=== PATIENT | male | born 1950 | race Caucasian/White ===

== ENCOUNTER 2022-07-16 09:18 | Inpatient (IN) | payer MEDICARE, MEDICAID, SELFPAY ==
[2022-07-16] VITALS (11 sets, daily range): BP systolic 132–149; BP diastolic 67–90; PULSE 98–114; RESP 17–18; TEMP 36.2–36.6; O2SAT 97–99; BMI 24.9; BMI 23.6
--- NOTE | 2022-07-16 09:33 | EKG12_ITS ---
Test Reason : ABNORMAL LABS Blood Pressure : / mmHG Vent. Rate : 113 BPM Atrial Rate : 113 BPM P-R Int : 162 ms QRS Dur : 090 ms QT Int : 334 ms P-R-T Axes : 049 -01 066 degrees QTc Int : 458 ms Sinus tachycardia with Premature atrial complexes Septal infarct , age undetermined Abnormal ECG Confirmed by NATY GUTIERREZ, VIDA ([id number]), television news video editor MILTON DE LA CRUZ ([id number]) on 07/19/2022 9:34:52 AM Referred By: Confirmed By:VIDA ALFONSO MD
--- NOTE | 2022-07-16 09:42 | EDS_ITS ---
HPI History of Present Illness Chief Complaint: Abn Labs Detail of Chief Complaint: Patient arrived by ambulance because of abnormal labs. Informant: patient and EMS Onset/Context/Timing Onset: - (Unknown) Context: - (Presumed acute) Timing: Continuous Quality: Significant rise in BUN and creatinine Location: Renal Current Severity: Severe Maximum Severity: Severe Worsened by: Lack of p.o. intake Associated Symptoms Associated Symptoms: Generalized weakness, weight loss Narrative Narrative: Patient is an elderly male. He is not a good informant. He believes it is Fe joe. When asked the day of month he was uncertain and respond to 22. He does not know the year. He does know he is at [facility]. He states he had recent surgery for torn muscle. This was performed at outside facility. Patient states his relative checked on him this morning and called the squad. Patient denies headache. Patient denies change in vision. Patient denies pr oblems with speech or swallowing. He states his mouth is dry. He denies chest pain or shortness of breath. He denies abdominal pain. He states he has back pain because he was dropped by president [employer] at outside facility. Patient is uncertain of the medications he is on. He is uncertain if he has taken them. Prior similar symptoms: No Recent Illness/Hospitalization: Yes [facility] Medical History unable to obtain unable to obtain Home Medications No Known/Unobtainable [Unobtainable] 12/28/13 [History Last Taken Unknown] Allergy/AdvReac Type Severity Reaction Status Date / Time No Known Allergies Allergy Verified 07/16/22 09:23 Surgical History unable to obtain unable to obtain Social History (Updated 07/16/22 @ 09:[address] Alexander Alvarez MD) household members: none Smoking Status: Former smoker substance use type: does not use ROS ROS ED Review of Systems ROS Unobtainable: due to mental status Constitutional Constitutional ED: Denies chills or fever(s) Eyes Eyes: Denies blurry vision, change in vision or diplopia Cardiovascular Cardiovascular: Denies chest pain or palpitations Respiratory/Chest Respiratory/Chest: Denies cough Gastrointestinal Gastrointestinal: Denies abdominal pain, nausea or vomiting Musculoskeletal Musculoskeletal: Reports back pain; Denies myalgias or neck pain Integumentary Denies abscess, Abrasions or rash Neurologic Neurologic: Reports weakness; Denies headache(s) or paresthesias EXAM Physical Exam Const Vital Signs: 07/16/22 09:19 07/16/22 09:59 Temperature 97.1 F L Temperature Source Temporal Pulse Rate 114 H Respiratory Rate 18 Respiratory Effort Normal Non-Labored Respiratory Pattern Normal Blood Pressure 142/90 H Blood Pressure Mean 107 Pulse Ox 98 Oxygen Delivery Method Room Air Positive well developed, cachectic and unkempt Constitutional Narrative: Patient has temporal wasting. He requires repeated stimulation to open his eyes. General Appearance ED: unkempt, well developed, cachectic and pallor; Negative for cyanotic or diaphoretic Nutritional Appearance: cachectic HEENT Reports dry mucous membranes HEENT Narrative: Patient has abrasions to his head versus fruit or nut picker syndrome. There is no clinical finding of basilar skull fracture. Uvula is midline. There is no deviation tongue with protrusion. Mouth ED: Yes dry mucous membranes Mouth: dry mucous membranes Eyes PERRL and EOMs intact bilaterally General Eye ED: Negative for scleral icterus Neck no lymphadenopathy, supple and no JVD Chest Wall inspection of chest normal and palpation of chest normal Resp normal respiratory effort and clear to auscultation bilaterally Cardio regular rhythm, S1 normal heart sound, S2 normal heart sound and no murmurs Rate: tachycardic GI normal to inspection, nondistended, normoactive bowel sounds, non-tender, non- distended and no masses; Negative for hepatosplenomegaly Palpation: soft Back/Spine no CVA tenderness Cervical Spine: Negative for cervical spine tenderness Thoracic Spine / Upper Back: Negative for thoracic spinal tenderness or paraspinal muscle tenderness Lumbar Spine / Lower Back: Negative for lumbar spinal tenderness Extremity normal to inspection Extremity Narrative: There are 2 small incisions noted lateral superior to right knee joint. There is no evidence infection. Patient does have stigmata of peripheral arterial disease of his lower extremities. There is no hair on his toes. Difficulty appreciating pulses. Neuro No oriented x3, CN's II-XII intact bilaterally and no sensory deficits noted Sensorium / Orientation: orientation impaired; Negative for alert Psych Psych Narrative: Difficult to determine since patient requires repeated verbal stimuli to keep his eyes open. His answers are not always relevant to the questions asked. Appearance: unkempt Skin No skin turgor normal General Skin Exam: pallor; Negative for jaundice Trauma: abrasion MDM MDM MDM Narrative Medical decision making narrative: Patient had blood work on the . His BUN and creatinine were elevated at that time. BUN and creatinine are 49 and 2.44 respectively. Blood work was obtained today and BUN/creatinine are 113 and 3.58. GFR is 18. Glucose slight elevated 124. Patient has microcytic anemia which is unchanged since the . Prior blood work was 2012. Patient has encephalopathy. There appears to be trauma to his head. Will obtain CT of the head to rule out intracranial process. Since blood work was performed at [facility] earlier today these were not repeated. He will receive a fluid bolus and IV fluids. Will obtain urine to assess for casts and rule out urinary tract infection. Patient will require admission. Lab Data Attestation: I reviewed the patient's lab results. Lab results narrative: Patient's urine reveals bacteria. There is no leukoesterase or nitrites. Urine culture was sent. 1 dose of Rocephin was given. If he requires additional dose of Rocephin dose will need to be adjusted for renal impairment. Labs: Laboratory Results - last 24 hr 07/16/22 09:26 Urine Color Yellow Urine Clarity Sl. Cloudy Urine pH 6.0 Ur Specific [place] 1.015 Urine Protein 30 H Urine Glucose (UA) 50 H Urine Ketones Negative Urine Occult Blood 250 H Urine Nitrite Negative Urine Bilirubin Negative Urine Urobilinogen Normal Ur Leukocyte Esterase Negative Urine RBC 0-5 SEEN Urine WBC 0 SEEN Ur Squamous Epith Cells 0-5 SEEN Urine Bacteria 2+ Urine Mucus 0 SEEN Discharge Plan Triage Chief Complaint: Abn Labs ED Provider: Alexander Alvarez Dx/Rx/DC Orders Clinical Impression: Acute kidney injury, Acute uremia, Encephalopathy acute, Bacteria in urine, Sinus tachycardia, Hypertension Prescriptions: No Action Unobtainable Primary Care Provider: Tan Mercado Referrals: Tan Mercado MD [Primary Care Provider] - Disposition Disposition: Acute Care Hospital [facility]
--- NOTE | 2022-07-16 09:46 | CT_ITS ---
STUDY: CT BRAIN WITHOUT CONTRAST REASON FOR EXAM: Male, 72 years old. Acute mental status change RADIATION DOSAGE (If Supplied By Facility): CTDIvol = ( 44.99 ) mGy, DLP = ( 779.24 ) mGycm TECHNIQUE: Transaxial CT imaging of the brain was performed without administration of intravenous contrast material. Individualized dose optimization techniques were used for this CT. COMPARISON: 2013 FINDINGS: Normal soft tissue structures. Normal calvarium. When compared to the previous study, there is hyperdense lesion along the posterior left falx best seen on coronal recon image 70 and axial image 18. There is no associated edema. This could represent a meningioma, further evaluation with contrasted CT or MRI recommended. There is mild cerebral atrophy with widening of the extra-axial spaces and ventricular dilatation. There are areas of decreased attenuation within the white matter tracts of the supratentorial brain, consistent with microvascular disease changes. Normal basal ganglia and thalami. Normal brainstem. Normal cerebellum. There is no intracranial hemorrhage. There are no findings of an acute ischemic infarction. Normal visualized paranasal sinuses. CT/Brain/Head without Contrast IMPRESSION: 1.59 x 1.05 x 1.43 cm hyperdense lesion in the posterior left occipital region along the falx. This may represent a meningioma. There is no associated edema mass effect or midline shift. This was not seen on the previous study of 2013. Recommend further evaluation with contrasted CT or MRI. Age consistent atrophic periventricular and deep white matter changes, no acute hemorrhage Electronically Signed: Barak Scott MD at 10:53 EDT ,
[2022-07-16 10:03] LABS: Mucous, Urine 0 SEEN /hpf (<or=2+); White Blood Cells 0 SEEN /hpf (0-5)
[2022-07-16 10:06] LABS: Color, Urine Yellow (Yellow); Glucose, Dipstick 50 mg/dl (Normal); Ketone-Dipstick Negative (Negative); Leukocyte Esterase-Dipstick Negative /ul (Negative); Nitrite-Dipstick Negative (Negative); Occult Blood-Urine 250 /ul (Negative); Protein-Dipstick 30 mg/dl (Negative); Specific Gravity, Urine 1.015 (1.002-1.030); Urine Bilirubin Dipstick Negative (Negative); Urine Clarity Sl. Cloudy (Clear); Urine Urobilinogen Normal (Normal)
[2022-07-16 10:18] LABS: Red Blood Cells-Urine 0-5 SEEN /hpf (0-5); Squamous Epithelial Cells - UA 0-5 SEEN /hpf (0-5)
[2022-07-16 10:21] LABS: Bacteria 2+ /hpf (None Seen)
[2022-07-16] MEDS: 0.9% Normal Saline 1,000 ML 150 ML IV (10:23)
[2022-07-16 10:49] LABS: AST(SGOT) 58 U/L (15-37); Alanine Aminotransfer ALT/SGPT 19 U/L (16-61); Albumin, Serum 1.8 g/dL (3.2-5.0); Alkaline Phosphatase 189 U/L (45-117); Bilirubin, Direct 0.41 mg/dL (0.00-0.30); Globulin 5.2 g/dL (2.2-4.2)
--- NOTE | 2022-07-16 11:02 | NURSING ---
DR JASPREET LOPEZ
--- NOTE | 2022-07-16 11:08 | US_ITS ---
STUDY: ABDOMINAL ULTRASOUND - RIGHT UPPER QUADRANT REASON FOR VISIT: Male, 72 years old cirrhosis. Pancytopenia. Low albumin. Acute kidney injury. TECHNIQUE: Ultrasound evaluation of the right upper quadrant was performed with real-time and static doyle-scale imaging. TECHNICAL QUALITY: Examination limited due to a combination of factors including patient condition and bowel gas. COMPARISON: None. FINDINGS: Liver: The liver measures 15.7 cm. There is a heterogeneous echogenicity of the liver. The bile ducts are within normal limits. There is hepatic color flow. The direction of portal flow is hepatopetal. There is no demonstrated mass lesion. Gallbladder: Distended gallbladder. The gallbladder wall measures 2 mm. There is a negative sonographic Chacon''s sign. There is no pericholecystic fluid. There are no gallstones. Common Bile Duct (C.B.D.): The common bile duct measures 7 mm. Pancreas: Limited visualization of pancreas. The body and tail are poorly visualized. There is normal echogenicity of the visualized pancreas. There is no demonstrated pancreatic mass or cyst. Right Kidney: Normal size of the right kidney. The right kidney measures 11.8 cm. Normal renal cortex. The right cortex measures 1.8 cm. There is no demonstrated renal mass or cyst. There is no right hydronephrosis. US/Abdomen Limited IMPRESSION: 1. Limited study due to bowel gas patient condition. The pancreas is incompletely visualized. 2. Distended gallbladder without wall thickening or filling defect.. 3. Heterogenous liver without focal mass. 4. Otherwise normal right upper quadrant abdominal ultrasound. Electronically Signed: Kale Rivera DO at 18:02 EDT ,
--- NOTE | 2022-07-16 11:08 | US_ITS ---
STUDY: RENAL ULTRASOUND - COMPLETE REASON FOR EXAM: Male, 72 years old. Acute kidney injury. Hydronephrosis. Bladder pathology. History of prostate cancer. TECHNIQUE: Ultrasound evaluation of the kidneys was performed with real-time and static machuca-scale imaging. COMPARISON: None. FINDINGS: Study is limited due to bowel gas and patient condition. The patient was unable to lie in the decubitus position for improved visualization kidneys. RIGHT KIDNEY: There is mild enlargement although the right kidney. The right kidney measures 12.9 cm. Is increased renal cortical echogenicity when compared to the adjacent liver. The renal cortex measures 2.1 cm. There is no right renal mass or cyst. There are no right renal calculi. There is no right hydronephrosis. DISTAL RIGHT URETER: There is non-visualization of the distal right ureter. There is no demonstrated right ureterovesical junction calculus. There is no demonstrated right ureteral jet. LEFT KIDNEY: Mild enlargement of the left kidney. The left kidney measures 12.9 cm. There is a normal cortex of the left kidney. The renal cortex measures 2.2 cm. There is an exophytic 1.8 x 1.9 x 1.8 cm cyst off the lower pole. There are no left renal calculi. There is no left hydronephrosis. DISTAL LEFT URETER: There is non-visualization of the distal left ureter. There is no demonstrated left ureterovesical junction calculus. There is no demonstrated left ureteral jet. BLADDER: The distended urinary bladder has a volume of 75 ml. There is a normal wall thickness of the distended urinary bladder. There is no demonstrated mass within the urinary bladder. There are no demonstrated bladder calculi. The prostate is enlarged with a volume of 45.7 mL. US/Kidney and Bladder IMPRESSION: 1. Increased renal cortical echogenicity of the right kidney consistent with medical renal disease. 2. Small left renal cyst. 3. Enlarged prostate. Electronically Signed: Kale Rivera DO at 18:08 EDT Reading Location ID and State: [facility] / [place] Tel [phone], Service support ,
--- NOTE | 2022-07-16 11:13 | EX.ED.DYSGE1 ---
HPI History of Present Illness Chief Complaint: Abn Labs [facility] Medical History unable to obtain Home Medications No Known/Unobtainable [Unobtainable] 12/28/13 [History Last Taken Unknown] Allergy/AdvReac Type Severity Reaction Status Date / Time No Known Allergies Allergy Verified 07/16/22 09:23 Surgical History unable to obtain Social History (Updated 07/16/22 @ 09:[address] Alexander Alvarez MD) household members: none Smoking Status: Former smoker substance use type: does not use EXAM Physical Exam Const Vital Signs: 07/16/22 09:19 07/16/22 09:59 Temperature 97.1 F L Temperature Source Temporal Pulse Rate 114 H Respiratory Rate 18 Respiratory Effort Normal Non-Labored Respiratory Pattern Normal Blood Pressure 142/90 H Blood Pressure Mean 107 Pulse Ox 98 Oxygen Delivery Method Room Air [facility] Lab Data Labs: Laboratory Results - last 24 hr 07/16/22 07/16/22 09:26 10:20 Total Bilirubin 0.70 Direct Bilirubin 0.41 H AST 58 H ALT 19 Alkaline Phosphatase 189 H Total Protein 7.0 Albumin 1.8 L Globulin 5.2 H Urine Color Yellow Urine Clarity Sl. Cloudy Urine pH 6.[address] 1[address]015 Urine Protein 30 H Urine Glucose (UA) 50 H Urine Ketones Negative Urine Occult Blood 250 H Urine Nitrite Negative Urine Bilirubin Negative Urine Urobilinogen Normal Ur Leukocyte Esterase Negative Urine RBC 0-5 SEEN Urine WBC 0 SEEN Ur Squamous Epith Cells 0-5 SEEN Urine Bacteria 2+ Urine Mucus 0 SEEN Radiography Diagnostic Testing: Clinical Impression(s) from Imaging Studies Brain CT 07/16/22 09:46 IMPRESSION: 1.59 x 1.05 x 1.43 cm hyperdense lesion in the posterior left occipital region along the falx. This may represent a meningioma. There is no associated edema mass effect or midline shift. This was not seen on the previous study of 2013. Recommend further evaluation with contrasted CT or MRI. Age consistent atrophic periventricular and deep white matter changes, no acute hemorrhage Electronically Signed: Barak Scott MD at 10:53 EDT , Discharge Plan Dx/Rx/DC Orders Clinical Impression: Acute kidney injury, Acute uremia, Encephalopathy acute, Bacteria in urine, Sinus tachycardia, Hypertension, Caloric malnutrition, Hypoalbuminemia Disposition Disposition: Acute Care Hospital [facility]
--- NOTE | 2022-07-16 11:15 | NURSING ---
MED SURG JASPREET UREMIA, ACUTE KIDNEY INJURY, ENCEPHALOPATHY, BACTERIURIA
[2022-07-16] MEDS: Ceftriaxone 1 GM/50 ML BAG IV (11:26)
[2022-07-16 11:45] LABS: Osmolality, Urine 397 mOsm/KG
[2022-07-16 11:46] LABS: CPK Total, Creatine Kinase 417 U/L (39-308); Magnesium 2.5 mg/dL (1.6-2.6)
[2022-07-16 11:51] LABS: Protein, Urine (Random) 87.2 mg/dL (<11.9); Protein:Creat Ratio 2185 mg/g CRE (0-200); Urine Chloride 32 mmol/L (Not Establ.); Urine Sodium 28 mmol/L (Not Establ.)
[2022-07-16 11:52] LABS: Phosphorus 3.8 mg/dL (2.5-4.9)
--- NOTE | 2022-07-16 12:07 | HP.PCM.HOS_ITS ---
[facility] - General General Date of Admission: 07/16/22 Date of Service: 07/16/22 Chief Complaint: Abnormal critical values of BUN and creatinine, sent from [facility] HPI Narrative ANGELES PHELPS, is a 72 M with much of the medical care. Outside hospital was sent from [facility] for abnormal critical labs. Patient BUN found to be 113, creatinine 3.58. Patient has chronic kidney disease with last BUN/creatinine 49/2.44 on 07/09/2022 and last creatinine 1.5 in November 2012 in our system. Potassium is normal 4.1, sodium 137, chloride 108, bicarb 16, anion gap 13. Patient history is very patchy and incomplete as does not give history in chronological order and switches from one topic to another, unclear of any chronic mental health disorder/psychiatric diagnosis. Overall it seems that patient has broken right hip, displaced fracture of lesser trochanter of right femur for which she had procedure done in outside hospital probably in [facility]. 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 All the details of the cancer history is unknown. Patient most of the care is outside of [facility]. After that, patient went to custodial and then preoperative to [facility]. There he said he was picked up and dropped in [facility] that broke his back, lumbar spine. Patient does not let me examine his back, cannot turn sideways because of pain. All the time he says it knocked me down as of severe back pain. Denies any fever. No burning micturition or new urinary symptoms. He has pain over right hip region and thigh. There are surgical lázaro over right hip lateral, middle and distal thigh suggestive of some sort of hip fracture procedure. He said he had procedure done on the left hip but I do not see any surgical scar. In ED, patient had twelve-lead EKG shows sinus tachycardia at 113 bpm with PAC, [place] 162 ms, QRS 90 ms. QTc [address]-T changes. Patient did not have chest pain or shortness of breath. States he had coronary artery disease status post CABG and 4 stents. CABG was done about 2 to 3 years ago but not mentioning past medical history. Patient denies COPD but he was a former/ex-smoker [facility] Medical History Anemia, unspecified BPH (benign prostatic hyperplasia) Displaced fracture of lesser trochanter of right femur, subsequent encounter for closed fracture with routine healing Essential (primary) hypertension Gastro-esophageal reflux disease without esophagitis Generalized weakness Hyperlipidemia, unspecified Malignant neoplasm of prostate Other pancytopenia Pathological fracture, other site, subsequent encounter for fracture with routine healing Pathological fracture, right femur, subsequent encounter for fracture with routine healing Secondary malignant neoplasm of bone Type 2 diabetes mellitus without complications Unspecified fracture of left ilium, subsequent encounter for fracture with routine healing Medical History unable to obtain Home Medications aspirin 81 mg tablet 81 mg PO DAILY 07/16/22 [History Last Taken Unknown] cholecalciferol (vitamin D3) 25 mcg (1,000 unit) tablet 25 mcg PO DAILY 07/16/22 [History Last Taken Unknown] enoxaparin 40 mg/0.4 mL subcutaneous syringe 40 mg subcut DAILY 07/16/22 [History Last Taken Unknown] enzalutamide 40 mg capsule 160 mg PO DAILY 07/16/22 [History Last Taken Unknown] ezetimibe 10 mg tablet 10 mg PO DAILY 07/16/22 [History Last Taken Unknown] metformin 1,000 mg tablet 1,000 mg PO BID 07/16/22 [History Last Taken Unknown] metoprolol succinate 25 mg capsule sprinkle, ext. release 24 hr 25 mg PO DAILY 07/16/22 [History Last Taken Unknown] multivitamin 1 tab PO DAILY 07/16/22 [History Last Taken Unknown] oxycodone 15 mg tablet 15 mg PO BID PRN Pain 07/16/22 [History Last Taken Unknown] oxycodone 5 mg tablet 2.5 mg PO Q4H PRN Pain 07/16/22 [History Last Taken Unknown] pantoprazole 40 mg granules delayed-release for susp in packet 40 mg PO DAILY 07/16/22 [History Last Taken Unknown] ropinirole 0.25 mg tablet 0.25 mg PO QHS 07/16/22 [History Last Taken Unknown] rosuvastatin 40 mg tablet 40 mg PO DAILY 07/16/22 [History Last Taken Unknown] tamsulosin 0.4 mg capsule 0.4 mg PO DAILY 07/16/22 [History Last Taken Unknown] Allergy/AdvReac Type Severity Reaction Status Date / Time No Known Allergies Allergy Verified 07/16/22 09:23 Family History unable to obtain Surgical History unable to obtain Social History household members: none Smoking Status: Former smoker substance use type: does not use ROS ROS Narrative 14 ROS is incomplete as patient is not good historian probably acute encephalopathy on baseline chronic mental health disorder Denies chest pain or shortness of breath or fever. Chronic pain of back right hip right thigh. Denies burning micturition or new urinary tract symptoms. Hematological problem: Chronic anemia and thrombocytopenia. Oncological problem: Secondary bone cancer, probably primary malignant neoplasm of prostate Review of Systems ROS Unobtainable: due to encephalopathy and due to mental condition Vital Signs Vital Signs Vital Signs: 07/16/22 09:19 07/16/22 09:59 07/16/22 11:16 Temperature 97.1 F L Temperature Source Temporal Pulse Rate 114 H 108 H Respiratory Rate 18 18 Respiratory Effort Normal Non-Labored Respiratory Pattern Normal Blood Pressure 142/90 H 135/74 H Blood Pressure Mean 107 94 Pulse Ox 98 98 Oxygen Delivery Method Room Air Room Air 07/16/22 11:27 Temperature 97.1 F L Temperature Source Temporal Pulse Rate 108 H Respiratory Rate 17 Respiratory Effort Respiratory Pattern Blood Pressure 135/74 H Blood Pressure Mean 94 Pulse Ox 99 Oxygen Delivery Method Room Air Weight Weight: 173 lb 15.115 oz Body Mass Index (BMI) 24.9 Physical Exam Narrative General: Awake, alert, oriented x2. Could not tell the month, day and year. HEENT: Atraumatic, PERRLA, EOMI, Normocephalic Oral: No Gingival or Mucosal Lesions/ Ulcerations Neck: Supple, No JVD, Negative Carotid Bruits Lungs: Air entry diminished in bilateral lung bases. No crepitation/rhonchi Cardiovascular: Sinus rhythm, CABG scar. Normal S1, Normal S2, systolic murmur LLSB and cardiac apex Abdomen: Bowel Sounds Present, Soft, Non Tender, Non-Distended. Small subcutaneous fatty lump on right lower quadrant. Mobile, probably lipoma. Chronic : No renal angle tenderness. No suprapubic tenderness. Extremities: No edema, Capillary Refill Less than 3 Seconds Skin: No rashes, No breakdown Musculoskeletal/spine: Tenderness present over right hip region, right thigh. Muscle strength, ROM not checked due to extreme pain. Spine tender, could not let me examine. Patient could not turn lateral. Neurological: Cranial nerves II-XII grossly intact, DTR 2+/4. Psych/Mental Status: Flat affect. Tangential history. Possible personality disorder Results Lab / Micro Data Labs: Laboratory Results - last 24 hr 07/16/22 09:26: Urine Color Yellow, Urine Clarity Sl. Cloudy, Urine pH 6.0, Ur Specific Spangler 1.015, Urine Protein 30 H, Urine Glucose (UA) 50 H, Urine Ketones Negative, Urine Occult Blood 250 H, Urine Nitrite Negative, Urine Bilirubin Negative, Urine Urobilinogen Normal, Ur Leukocyte Esterase Negative, Urine RBC 0-5 SEEN, Urine WBC 0 SEEN, Ur Squamous Epith Cells 0-5 SEEN, Urine Bacteria 2+, Urine Mucus 0 SEEN 07/16/22 09:26: Urine Osmolality 397, U Random Total Protein 87.2 H, Ur Random Sodium 28, Urine Creatinine 39.90, Protein/Creatinin Ratio 2185 H, Urine Potassium 26.0, Urine Chloride 32 07/16/22 10:20: Total Bilirubin 0.70, Direct Bilirubin 0.41 H, AST 58 H, ALT 19, Alkaline Phosphatase 189 H, Total Protein 7.0, Albumin 1.8 L, Globulin 5.2 H 07/16/22 10:20: Phosphorus 3.8 07/16/22 10:21: Magnesium 2.5, Total Creatine Kinase 417 H Radiology Impression Brain CT 07/16/22 09:46 IMPRESSION: 1.59 x 1.05 x 1.43 cm hyperdense lesion in the posterior left occipital region along the falx. This may represent a meningioma. There is no associated edema mass effect or midline shift. This was not seen on the previous study of 2013. Recommend further evaluation with contrasted CT or MRI. Age consistent atrophic periventricular and deep white matter changes, no acute hemorrhage Electronically Signed: Barak Scott MD at 10:53 EDT , Assessment & Plan Assessment/Plan (1) Acute kidney injury: (2) Encephalopathy acute: PLAN: Plan This is a 75-year-old gentleman was admitted from custodial for abnormal labs. 1. Acute kidney injury on CKD 3, unclear 3A or 3B: Patient baseline BUN/creatinine was 15/1.5 in November 2012. No labs until 07/09/22 when BUN/creatinine 49/2.44. Patient is admitted with 113/3.58. Patient is hyperchloremic non-anion gap metabolic acidosis. Bicarb 16, chloride 118. Started on IV fluid Ringer lactate. UA shows occult blood 250, protein 30 glucose 50 but negative RBC WBC. Bacteria 2+. Urine osmolality 397, protein creatinine ratio 2.185 g. CK is elevated, 417 not in the range of rhabdomyolysis. I discussed with property manager, Dr. Flannery and consulted him. No hyperkalemia. 2. Acute encephalopathy, exact etiology unclear suspect metabolic from uremia: I also think patient has baseline mental disorder/psychiatric diagnosis or personality disorder. Treat the underlying disorder. 3. Left pathological fracture of right hip/proximal femur status postrepair, secondary malignant neoplasm of bone with possible primary prostate cancer: Details not available. Patient on enzalutamide 160 mg daily. Hold it for acute kidney injury. We will try to get medical records from [facility]. 4. Lumbar spine pain: Exact etiology unclear: Lumbar spine x-ray ordered to start with. Overall since patient has localized lumbar back pain although patient is not a good historian to get detail of pain characteristic. 5. Diabetes mellitus type 2: Accu-Chek insulin coverage Humalog sliding scale. 6. Other multiple comorbidities include Favian artery status post CABG, last PCI, hypertension, dyslipidemia, GERD: Home medication reconciliation Laboratory Results 07/16/22 09:26: Urine Color Yellow, Urine Clarity Sl. Cloudy, Urine pH 6.0, Ur Specific Spangler 1.015, Urine Protein 30 H, Urine Glucose (UA) 50 H, Urine Ketones Negative, Urine Occult Blood 250 H, Urine Nitrite Negative, Urine Bilirubin Negative, Urine Urobilinogen Normal, Ur Leukocyte Esterase Negative, Urine RBC 0-5 SEEN, Urine WBC 0 SEEN, Ur Squamous Epith Cells 0-5 SEEN, Urine Bacteria 2+, Urine Mucus 0 SEEN 07/16/22 09:26: Urine Osmolality 397, U Random Total Protein 87.2 H, Ur Random Sodium 28, Urine Creatinine 39.90, Protein/Creatinin Ratio 2185 H, Urine Potassium 26.0, Urine Chloride 32 07/16/22 10:20: Total Bilirubin 0.70, Direct Bilirubin 0.41 H, AST 58 H, ALT 19, Alkaline Phosphatase 189 H, Total Protein 7.0, Albumin 1.8 L, Globulin 5.2 H 07/16/22 10:20: Phosphorus 3.8 07/16/22 10:21: Magnesium 2.5, Total Creatine Kinase 417 H Clinical Impression(s) from Imaging Studies Brain CT 07/16/22 09:46 IMPRESSION: 1.59 x 1.05 x 1.43 cm hyperdense lesion in the posterior left occipital region along the falx. This may represent a meningioma. There is no associated edema mass effect or midline shift. This was not seen on the previous study of 2013. Recommend further evaluation with contrasted CT or MRI. Age consistent atrophic periventricular and deep white matter changes, no acute hemorrhage Charges/Coding Visit Charges Inpatient E&M: 67452 Init Hosp L3 Procedures Hospitalists Procedures: 68116 Advncd Care Plan 30 Min
[2022-07-16] MEDS: Lactated Ringers 1,000 ML 150 ML IV (12:43)
[2022-07-16] MEDS: Heparin Injection (Vial) 5,000 UNIT/ML VIAL 5000 UNIT SC ×2 (12:43→21:20)
--- NOTE | 2022-07-16 13:16 | RAD_ITS ---
EXAM: XR LUMBOSACRAL SPINE, 2 OR 3 VIEWS CLINICAL INDICATION: lumbar back pain TECHNIQUE: Frontal and lateral views of the lumbar spine and sacrum. This report was created using [employer] report generation technology. COMPARISON: None. FINDINGS: VERTEBRAE: No acute fracture or subluxation. DISC SPACES: Moderate multilevel vertebral body osteophytosis. Mild disc space narrowing noted at the L1-L3 4 levels are L4-5 and L5-S1 facet arthropathy. RAD/Lumbar Spine 2 or 3 Views IMPRESSION: No acute abnormality. Moderate spondylosis. Electronically Signed: Hans Nguyen MD at 14:13 EDT ,
[2022-07-16] MEDS: Polyethylene Glycol 3350 17 GM PACKET PO (13:38)
[2022-07-16] MEDS: Metoprolol(XL)Succ 25 MG Tablet PO (13:38)
[2022-07-16] MEDS: oxyCODONE CR 15 MG Tablet PO ×2 (13:39→21:20)
[2022-07-16 14:05] LABS: International Normalized Ratio 1.7; Prothrombin Time (Protime)PT. 19.4 SECONDS (11.7-14.9)
[2022-07-16 14:41] LABS: Osmolality, Serum 321 mOsm/KG (280-301)
[2022-07-16 16:10] LABS: Bedside Glucose 130 mg/dL (74-106)
[2022-07-16 18:53] LABS: Anion Gap 15 (5-15); BUN 108 mg/dL (7-18); BUN/Creat Ratio 33.4 RATIO (10-20); Calcium,Total 8.4 mg/dL (8.5-10.1); Chloride 110 mmol/L (98-107); Creatinine, Serum 3.23 mg/dL (0.70-1.30); EST Glomerular Filtration Rate 20 mL/min (>60); Est Glom Filt Rate - Afr Amer 25 mL/min (>60); Estimated Creatinine Clearance 21.66 ml/min; Glucose 126 mg/dL (74-106); Potassium 3.9 mmol/L (3.5-5.1); Sodium Level 141 mmol/L (136-145)
--- NOTE | 2022-07-16 19:27 | CON.PCM.RE_ITS ---
Assessment & Plan Assessment/Plan (1) Acute kidney injury: PLAN: Serum creatinine from 07/09/2022 was already elevated at 2.44 mg/dL. The patient also had elevated creatinine from 12/03/2012 and 1.50 mg/dL. Therefore, there is a component of chronic kidney disease. The patient has significant proteinuria, so CKD is likely due to diabetic kidney disease. However, serum creatinine has increased to 3.58 mg/dL on presentation on 07/16/2022. Suspect YOUSUF could be secondary to volume depletion, so I agree with expanding volume with LR as discussed with hospitalist earlier today. Ultrasound of the kidney did not show any evidence of obstruction. Low suspicion for other causes of YOUSUF at this point. There is no need for kidney replacement therapy today. He is not hyperkalemic. Although there is acidosis, we will see if it is treatable medically (we will recheck bicarbonate level tomorrow). Recheck renal function, volume status, electrolytes, and acid-base status again tomorrow after volume expansion. If renal function fails to improve with volume expansion, we will expand work-up for other causes of YOUSUF such as paraprotein disease given his prior history of pathologic fracture. (2) Hypertension: PLAN: BP is acceptable. Continue current antihypertensive. We will continue to monitor BP. (3) Displaced fracture of lesser trochanter of right femur, subsequent encounter for closed fracture with routine healing: PLAN: Pain control as per hospital medicine service. Low suspicion that this is myeloma at this point. However, I will check serum and urine immunofixation along with light chains if renal function fails to stabilize or improve with IV fluid. (4) BPH (benign prostatic hyperplasia): PLAN: There is no evidence of obstruction on renal ultrasound on 07/16/2022.. Continue tamsulosin. HPI Consult Data Date of Consult: 07/16/22 HPI Narrative Reason for Consultation: Acute kidney injury HPI Narrative: ANGELES PHELPS, is a 72-year-old man with past history of type 2 diabetes mellitus, hypertension, CAD status post CABG, hyperlipidemia, BPH, and anemia. The patient also has a history of hip fracture with fracture of right lesser trochanter and right femur which was attributed to malignant neoplasm possibly from prostate cancer. The patient presented from [facility] because of abnormal labs. He was found to have BUN of 113 mg/dL and creatinine of 3.58 mg/dL. The patient denies current chest pain, shortness of breath, nausea, vomiting or edema. Appetite has been marginal at home. The patient does have a history of BPH, but he denies chronic use of NSAIDs. He denies lower urinary tract symptoms such as urinary frequency, urgency, or hesitancy. [facility] Medical History (Updated 07/16/22 @ 19:[address] Milena Goodwin MD) Anemia, unspecified BPH (benign prostatic hyperplasia) Displaced fracture of lesser trochanter of right femur, subsequent encounter for closed fracture with routine healing Essential (primary) hypertension Gastro-esophageal reflux disease without esophagitis Generalized weakness Hyperlipidemia, unspecified Malignant neoplasm of prostate Other pancytopenia Pathological fracture, other site, subsequent encounter for fracture with routine healing Pathological fracture, right femur, subsequent encounter for fracture with routine healing Secondary malignant neoplasm of bone Type 2 diabetes mellitus without complications Unspecified fracture of left ilium, subsequent encounter for fracture with routine healing Medical History unable to obtain Home Medications aspirin 81 mg tablet 81 mg PO DAILY 07/16/22 [History Last Taken Unknown] cholecalciferol (vitamin D3) 25 mcg (1,000 unit) tablet 25 mcg PO DAILY 07/16/22 [History Last Taken Unknown] enoxaparin 40 mg/0.4 mL subcutaneous syringe 40 mg subcut DAILY 07/16/22 [History Last Taken Unknown] enzalutamide 40 mg capsule 160 mg PO DAILY 07/16/22 [History Last Taken Unknown] ezetimibe 10 mg tablet 10 mg PO DAILY 07/16/22 [History Last Taken Unknown] metformin 1,000 mg tablet 1,000 mg PO BID 07/16/22 [History Last Taken Unknown] metoprolol succinate 25 mg capsule sprinkle, ext. release 24 hr 25 mg PO DAILY 07/16/22 [History Last Taken Unknown] multivitamin 1 tab PO DAILY 07/16/22 [History Last Taken Unknown] oxycodone 15 mg tablet 15 mg PO BID PRN Pain 07/16/22 [History Last Taken Unknown] oxycodone 5 mg tablet 2.5 mg PO Q4H PRN Pain 07/16/22 [History Last Taken Unknown] pantoprazole 40 mg granules delayed-release for susp in packet 40 mg PO DAILY 07/16/22 [History Last Taken Unknown] ropinirole 0.25 mg tablet 0.25 mg PO QHS 07/16/22 [History Last Taken Unknown] rosuvastatin 40 mg tablet 40 mg PO DAILY 07/16/22 [History Last Taken Unknown] tamsulosin 0.4 mg capsule 0.4 mg PO DAILY 07/16/22 [History Last Taken Unknown] Allergy/AdvReac Type Severity Reaction Status Date / Time No Known Allergies Allergy Verified 07/16/22 09:23 Family History unable to obtain Surgical History unable to obtain Social History household members: none Smoking Status: Former smoker substance use type: does not use ROS ROS Narrative 08/02 ROS was done. It is otherwise noncontributory aside from what is already documented in HPI. Physical Exam Narrative General: Alert, oriented x2 in no apparent distress. HEENT: Normocephalic, atraumatic. Pupil equal round and reactive to light and accommodation. Extraocular motion is intact. Mucous membrane is moist without erythema. Neck: Supple, no JVD, no bruit. Heart: Normal S1, S2. There is a 3/6 systolic murmur left upper sternal border. Lungs: Clear to auscultation bilaterally anteriorly. There is some decreased breath sound at bases posteriorly. Abdomen: Normal bowel sound, soft, nontender, no guarding or rebound. Extremities: No clubbing, cyanosis or edema. Musculoskeletal: Tenderness over right hip on palpation. Limited range of motion especially hip. Skin: Warm and dry, no rash. Neurologic: No gross neurologic deficit. Medical Records Data Medical Nutrition Assessment Dietitian: Malnutrition Criteria Met Start: 07/16/22 15:15 Freq: Status: Active Protocol: Document 07/16/22 15:15 (Rec: 07/16/22 15:15 [id number]) Nutrition Malnutrition Evidence of Malnutrition Exists Yes Malnutrition (severe): Acute Illness/Injury Evidenced By Suboptimal Energy Intake ( Severe),Weight Loss (Severe), Physical Changes (Moderate) Clinical Problem Acute Disease or Injury Related Malnutrition Etiology severe, acute malnutrition related to inadequate energy intake d/t pain Signs/Symptoms as evidenced by unintentional wt loss of 12.2#/7% <1 week; estimated PO intake meeting < 50% of estimated energy needs >5 days; Moderate muscle wasting/fat loss evident per physical exam in orbital, temporal, clavicle, and acromion region. Status Active Problem Recommendation Dietitian Recommendations/Changes regular diet; 120mL ensure plus high protein w/ medpass for additional calories/ protein if consumed. Lab / Micro Data Result Diagrams: 07/16/22 17:43 Labs: Laboratory Results - last 24 hr 07/16/22 09:26: Urine Color Yellow, Urine Clarity Sl. Cloudy, Urine pH 6.0, Ur Specific Girard 1.015, Urine Protein 30 H, Urine Glucose (UA) 50 H, Urine Ketones Negative, Urine Occult Blood 250 H, Urine Nitrite Negative, Urine Bilirubin Negative, Urine Urobilinogen Normal, Ur Leukocyte Esterase Negative, Urine RBC 0-5 SEEN, Urine WBC 0 SEEN, Ur Squamous Epith Cells 0-5 SEEN, Urine Bacteria 2+, Urine Mucus 0 SEEN 07/16/22 09:26: Urine Osmolality 397, U Random Total Protein 87.2 H, Ur Random Sodium 28, Urine Creatinine 39.90, Protein/Creatinin Ratio 2185 H, Urine Potass ium 26.0, Urine Chloride 32 07/16/22 10:20: Total Bilirubin 0.70, Direct Bilirubin 0.41 H, AST 58 H, ALT 19, Alkaline Phosphatase 189 H, Total Protein 7.0, Albumin 1.8 L, Globulin 5.2 H 07/16/22 10:20: Phosphorus 3.8 07/16/22 10:21: Magnesium 2.5, Total Creatine Kinase 417 H 07/16/22 13:47: Serum Osmolality 321 H 07/16/22 13:47: PT 19.4 H, INR 1.7 07/16/22 15:50: POC Glucose 130 H 07/16/22 17:43: Sodium 141, Potassium 3.9, Chloride 110 H, Carbon Dioxide 16.0 L , Anion Gap 15, BUN 108 H*, Creatinine 3.23 H, Estim Creat Clear Calc 21.66, Est GFR (MDRD) Af Amer 25 L, Est GFR (MDRD) Non-Af 20 L, BUN/Creatinine Ratio 33.4 H , Glucose 126 H, Calcium 8.4 L Radiology Impression Brain CT 07/16/22 09:46 IMPRESSION: 1.59 x 1.05 x 1.43 cm hyperdense lesion in the posterior left occipital region along the falx. This may represent a meningioma. There is no associated edema mass effect or midline shift. This was not seen on the previous study of 2013. Recommend further evaluation with contrasted CT or MRI. Age consistent atrophic periventricular and deep white matter changes, no acute hemorrhage Electronically Signed: Barak Scott MD at 10:53 EDT , Abdomen Ultrasound 07/16/22 11:08 IMPRESSION: 1. Limited study due to bowel gas patient condition. The pancreas is incompletely visualized. 2. Distended gallbladder without wall thickening or filling defect.. 3. Heterogenous liver without focal mass. 4. Otherwise normal right upper quadrant abdominal ultrasound. Electronically Signed: Kale Rivera DO at 18:02 EDT Reading Location ID and State: [facility] / [place] Tel [phone], Service support , Renal Ultrasound 07/16/22 11:08 IMPRESSION: 1. Increased renal cortical echogenicity of the right kidney consistent with medical renal disease. 2. Small left renal cyst. 3. Enlarged prostate. Electronically Signed: Kale Rivera DO at 18:08 EDT , Lumbar Spine X-Ray 07/16/22 13:16 IMPRESSION: No acute abnormality. Moderate spondylosis. Electronically Signed: Hans Nguyen MD at 14:13 EDT ,
[2022-07-16] MEDS: Pramipexole Di-HCl 0.125 MG Tablet PO (21:19)
[2022-07-16] MEDS: Ensure Plus High Protein 120 ML LIQUID PO (21:20)
[2022-07-16] MEDS: Senna/Docusate Sodium 1 Tablet 2 TABLET PO (21:20)
[2022-07-16 21:51] LABS: Bedside Glucose 112 mg/dL (74-106)
[2022-07-17] VITALS (17 sets, daily range): BP systolic 117–133; BP diastolic 70–83; PULSE 87–106; RESP 14–18; TEMP 36.3–37.1; O2SAT 95–99
[2022-07-17] MEDS: Lactated Ringers 1,000 ML 150 ML IV (00:22)
[2022-07-17 06:06] LABS: Hematocrit 21.5 % (40-54); Hemoglobin 6.6 g/dL (13.0-16.5); Mean Corp Hgb Conc 30.7 g/dL (32-36); Mean Corpuscular Hgb 24.2 pg (27.0-32.0); Mean Corpuscular Volume 78.8 fL (80-94); Mean Platelet Vol. 10.2 fl (6.2-12.0); POSITIVE COUNT YES; POSITIVE DIFFERENTIAL YES; POSITIVE MORPHOLOGY YES; Platelet Count 173 K/mm3 (150-450); RBC Distribution Width CV 23.1 % (11.6-14.6); RBC Distribution Width SD 65.1 fl (35.1-43.9); Red Blood Count 2.73 M/mm3 (4.6-6.2); White Blood Count 6.9 K/mm3 (4.4-11.0)
[2022-07-17 06:10] LABS: Differential Indicated MANUAL DIFF
[2022-07-17 06:27] LABS: Lymphocyte 8 % (19-41); Metamyelocyte 2 % (0-1); Monocyte 10 % (0-10); Myelocyte 1 % (0-0); Neutrophil-Segmented 79 % (47-70); Total Cells Counted 100 (MANUAL DIFF)
[2022-07-17 06:29] LABS: Absolute Lymphocyte Count 0.55 X10^3/uL (0.83-4.51); Absolute Neutrophil Count 5.7 X10^3/uL (2.0-7.7); Lymphocyte # 0.55 X10^3/ul (0.83-4.51); Neutrophil # 5.67 X10^3/uL (2.7-7.7)
[2022-07-17 06:30] LABS: Platelet Estimate ADEQUATE (ADEQ)
[2022-07-17 06:31] LABS: Anisocytosis 2+; Microcytosis 1+; Ovalocyte RARE
[2022-07-17 06:35] LABS: Albumin, Serum 1.7 g/dL (3.2-5.0); BUN 89 mg/dL (7-18); BUN/Creat Ratio 30.9 RATIO (10-20); Calcium,Total 8.3 mg/dL (8.5-10.1); Chloride 112 mmol/L (98-107); Creatinine, Serum 2.88 mg/dL (0.70-1.30); EST Glomerular Filtration Rate 23 mL/min (>60); Est Glom Filt Rate - Afr Amer 28 mL/min (>60); Estimated Creatinine Clearance 24.29 ml/min; Glucose 120 mg/dL (74-106); Phosphorus 3.5 mg/dL (2.5-4.9); Potassium 3.9 mmol/L (3.5-5.1); Sodium Level 141 mmol/L (136-145)
--- NOTE | 2022-07-17 06:45 | PCM.HOSP.N ---
Hospitalist Note Hgb 6.6 this AM. Patient has been s/p 2 u IVF of note; however, to be cautious will request guiac, hold heparin, administer 1 u PRBC and obtain repeat HH ~ 1 hour following completion.
[2022-07-17 07:00] LABS: Bedside Glucose 115 mg/dL (74-106)
[2022-07-17] MEDS: Cholecalciferol (VIT D3) 25 MCG TABLET (1,000 UNITS) 100 MCG PO (07:55)
[2022-07-17] MEDS: Multivitamins,Therapeutic Tablet 1 TABLET PO (07:55)
[2022-07-17] MEDS: Aspirin 81 MG TAB.CHEW PO (07:56)
[2022-07-17] MEDS: Senna/Docusate Sodium 1 Tablet 2 TABLET PO (07:56)
[2022-07-17] MEDS: Pantoprazole Sodium 40 MG Tablet PO (07:56)
[2022-07-17] MEDS: Polyethylene Glycol 3350 17 GM PACKET PO (07:57)
[2022-07-17] MEDS: Tamsulosin HCl 0.4 MG Capsule PO (07:57)
[2022-07-17] MEDS: Metoprolol(XL)Succ 25 MG Tablet PO (07:58)
[2022-07-17] MEDS: Ensure Plus High Protein 120 ML LIQUID PO ×2 (08:02→20:20)
--- NOTE | 2022-07-17 11:19 | CM.ED ---
JANNIE Note JANNIE Osborne at [facility]. Patient can return but will they want him to return Skilled. Plan: Return to [facility]. Qi PERAZAW Patient will need precert for returning to SNF
[2022-07-17] MEDS: oxyCODONE CR 15 MG Tablet PO ×2 (11:42→20:19)
--- NOTE | 2022-07-17 11:43 | PN.HOSP_ITS ---
Subjective Subjective Follow-up for severe anemia and YOUSUF on chronic kidney disease. Patient had drop in hemoglobin from admitting hemoglobin 7.2-6.6. Chronically anemic. Patient is very nonspecific in history and states he has mainly back pain but sometimes abdominal pain. Denies hematemesis melena or hematochezia. Stool for occult blood ordered. Creatinine is better. Urine output 750 ml documented in last 24 hours. Objective Data Objective Data Vital Signs: Vital Signs Temp Pulse Resp BP Pulse Ox O2 Del Method 97.5 F L 96 14 122/71 H 98 Room Air 07/17/22 11:28 07/17/22 11:28 07/17/22 11:28 07/17/22 11:28 07/17/22 11:28 07/17/22 11:28 Oxygen Delivery Method Room Air Weight: 166 lb 14.239 oz Body Mass Index (BMI) 23.6 Intake & Output: Intake and Output for Last 24 Hours 07/15/22 07/16/22 07/17/22 23:59 23:59 23:59 Intake Total 2009 1600 / 1600 Output Total 750 / 750 700 / 700 Balance 1260 / 1260 900 / 900 Medical Nutrition Assessment Dietitian: Malnutrition Criteria Met Start: 07/16/22 15:15 Freq: Status: Active Protocol: Document 07/16/22 15:15 AG (Rec: 07/16/22 15:15 AG [id number]) Nutrition Malnutrition Evidence of Malnutrition Exists Yes Malnutrition (severe): Acute Illness/Injury Evidenced By Suboptimal Energy Intake ( Severe),Weight Loss (Severe), Physical Changes (Moderate) Clinical Problem Acute Disease or Injury Related Malnutrition Etiology severe, acute malnutrition related to inadequate energy intake d/t pain Signs/Symptoms as evidenced by unintentional wt loss of 12.2#/7% <1 week; estimated PO intake meeting < 50% of estimated energy needs >5 days; Moderate muscle wasting/fat loss evident per physical exam in orbital, temporal, clavicle, and acromion region. Status Active Problem Recommendation Dietitian Recommendations/Changes regular diet; 120mL ensure plus high protein w/ medpass for additional calories/ protein if consumed. Lab / Micro Data Result Diagrams: 07/17/22 05:05 07/17/22 05:05 Labs: Laboratory Results - last 24 hr 07/16/22 09:26: Urine Osmolality 397, U Random Total Protein 87.2 H, Ur Random Sodium 28, Urine Creatinine 39.90, Protein/Creatinin Ratio 2185 H, Urine Potassium 26.0, Urine Chloride 32 07/16/22 10:20: Phosphorus 3.8 07/16/22 10:21: Magnesium 2.5, Total Creatine Kinase 417 H 07/16/22 13:47: Serum Osmolality 321 H 07/16/22 13:47: PT 19.4 H, INR 1.7 07/16/22 15:50: POC Glucose 130 H 07/16/22 17:43: Sodium 141, Potassium 3.9, Chloride 110 H, Carbon Dioxide 16.0 L , Anion Gap 15, BUN 108 H*, Creatinine 3.23 H, Estim Creat Clear Calc 21.66, Est GFR (MDRD) Af Amer 25 L, Est GFR (MDRD) Non-Af 20 L, BUN/Creatinine Ratio 33.4 H , Glucose 126 H, Calcium 8.4 L 07/16/22 21:05: POC Glucose 112 H 07/17/22 05:05: WBC 6.9, RBC 2.73 L, Hgb 6.6 L, Hct 21.5 L, MCV 78.8 L, MCH 24.2 L, MCHC 30.7 L, RDW Std Deviation 65.1 H, RDW Coeff of Chidi 23.1 H, Plt Count 173, MPV 10.2, Neut % (Auto) Not Reportable, Absolute Neuts (auto) 5.7, Absolute Lymphs (auto) 0.55 L, Total Counted 100, Neutrophils % (Manual) 79 H, Lymphocytes % (Manual) 8 L, Monocytes % (Manual) 10, Metamyelocytes % 2 H, Myelocytes % 1 H, Diff Path Review February, Platelet Estimate ADEQUATE, Anisocytosis 2+, Microcytosis 1+, Ovalocytes RARE 07/17/22 05:05: Sodium 141, Potassium 3.9, Chloride 112 H, Carbon Dioxide 18.0 L , BUN 89 H, Creatinine 2.88 H, Estim Creat Clear Calc 24.29, Est GFR (MDRD) Af Amer 28 L, Est GFR (MDRD) Non-Af 23 L, BUN/Creatinine Ratio 30.9 H, Glucose 120 H, Calcium 8.3 L, Phosphorus 3.5, Albumin 1.7 L 07/17/22 06:35: POC Glucose 115 H 07/17/22 06:55: Blood Type A POSITIVE, Antibody Screen NEGATIVE, Crossmatch See Detail Micro: Microbiology 07/17/22 11:00 Stool Stool Occult Blood (DOUGLAS) - Final Occult Blood Positive 07/16/22 09:26 Urine, Clean Catch Urine Culture - Preliminary Mixed Gram Pos & Gram Neg Org Radiography Diagnostic Testing: Radiology Impression Abdomen Ultrasound 07/16/22 11:08 IMPRESSION: 1. Limited study due to bowel gas patient condition. The pancreas is incompletely visualized. 2. Distended gallbladder without wall thickening or filling defect.. 3. Heterogenous liver without focal mass. 4. Otherwise normal right upper quadrant abdominal ultrasound. Electronically Signed: Kale Rivera DO at 18:02 EDT Reading Location ID and State: [facility] / [place] Tel [phone], Service support , Renal Ultrasound 07/16/22 11:08 IMPRESSION: 1. Increased renal cortical echogenicity of the right kidney consistent with medical renal disease. 2. Small left renal cyst. 3. Enlarged prostate. Electronically Signed: Kale Rivera DO at 18:08 EDT , Lumbar Spine X-Ray 07/16/22 13:16 IMPRESSION: No acute abnormality. Moderate spondylosis. Electronically Signed: Hans Nguyen MD at 14:13 EDT , Physical Exam Narrative Seen and examined General: Awake, alert, oriented x2. States he cannot sit up or roll over HEENT: Atraumatic, PERRLA, EOMI, Normocephalic Oral: No Gingival or Mucosal Lesions/ Ulcerations Neck: Supple, No JVD, Negative Carotid Bruits Lungs: Air entry diminished in bilateral lung bases. No crepitation/rhonchi Cardiovascular: Sinus rhythm, CABG scar. Normal S1, Normal S2, systolic murmur LLSB and cardiac apex Abdomen: Bowel Sounds Present, Soft, Non Tender, Non-Distended. Small subcutaneous fatty lump on right lower quadrant. Mobile, probably lipoma. P[place] abimbola : No renal angle tenderness. No suprapubic tenderness. Extremities: No edema, Capillary Refill Less than 3 Seconds Skin: No rashes, No breakdown Musculoskeletal/spine: Unable to roll over or sit up. Mild tenderness in lumbar area. Tenderness present over right hip region, right thigh. Muscle strength, ROM not examined due to extreme pain. Neurological: Cranial nerves II-XII grossly intact, DTR 2+/4. Psych/Mental Status: Flat affect. Tangential history. Possible personality disorder Assessment & Plan Assessment/Plan (1) Acute kidney injury: (2) Encephalopathy acute: PLAN: Plan This is a 75-year-old gentleman was admitted from senior living for abnormal labs. 1. Acute kidney injury on CKD 3, unclear 3A or 3B: Patient baseline BUN/creatinine was 15/1.5 in November 2012. No labs until 07/09/22 when BUN/creatinine 49/2.44. Patient is admitted with 113/3.58. Patient is hyperchloremic non-anion gap metabolic acidosis. Bicarb 16, chloride 118. Started on IV fluid Ringer lactate. UA shows occult blood 250, protein 30 glucose 50 but negative RBC WBC. Bacteria 2+. Urine osmolality 397, protein creatinine ratio 2.185 g. CK is elevated, 417 not in the range of rhabdomyolysis. I discussed with specialty finishing utility person, Dr. Flannery and consulted him. No hyperkalemia. 07/17: Kidney ultrasound shows increased echogenicity of right kidney. Proteinuria 2185 mg/g of creatinine, nonnephrotic range probably diabetic nephropathy. Urine osmolarity 397 more than serum osmolality 321. Urine sodium 28, potassium 26. Urine culture shows mixed gram-positive gram-negative organis ms suggestive of contamination. Overall improvement in BUN/creatinine. Liver ultrasound was heterogeneous without mass-effect or cirrhosis otherwise normal liver ultrasound. 2. Acute on chronic severe anemia mostly due to upper GI bleed: Hemoglobin dropped to 6.6 from 7.2. It was 7.4 on 07/09. Before that, hemoglobin 15.4 in November 2012. Stool for occult blood positive. Monitor PRBC transfusion. Protonix 40 mg IV twice daily.GI consulted. Patient undergoing 1 unit of PRBC transfusion. Repeat H&H posttransfusion. 3. Acute encephalopathy, exact etiology unclear suspect metabolic from uremia with incidental finding of brain mass/meningioma: I also think patient has baseline mental disorder/psychiatric diagnosis or personality disorder. Treat the underlying disorder. CT brain reported 1.59 x 1.05 x 1.43 cm hyperdense lesion in the posterior left occipital region along the falx. This may represent a meningioma. There is no associated edema mass effect or midline shift. This was not seen on the previous study of 2013. When patient is more stable we will do MRI brain . 3. Left pathological fracture of right hip/proximal femur status postrepair, secondary malignant neoplasm of bone with possible primary prostate cancer: Details not available. Patient on enzalutamide 160 mg daily. Hold it for acute kidney injury. 4. Lumbar spine pain: Exact etiology unclear: Lumbar spine x-ray reported degenerative changes of moderate multilevel vertebral body osteophytosis and disc narrowing at multiple levels. Facet arthropathy. No acute change. Lumbar back pain is localized 5. Diabetes mellitus type 2: Accu-Chek insulin coverage Humalog sliding scale. Glucose is controlled 6. Other multiple comorbidities include Favian artery status post CABG, last PCI, hypertension, dyslipidemia, GERD: Home medication reconciliation Total time of the visit including total time spent in counseling or coordination of care, (more than 50% of the total time, spent in obtaining medical information from nurses and other ancillary care providers,explaining to the patient about labs, imaging, diagnosis and management of active complex medical conditions), discussion with marketing communications associate and specialty finishing utility person, review of labs and imaging is 45 minutes. Microbiology Past 72 Hours 07/17/22 11:00 Stool Stool Occult Blood (DOUGLAS) - Final Occult Blood Positive 07/16/22 09:26 Urine, Clean Catch Urine Culture - Preliminary Mixed Gram Pos & Gram Neg Org Laboratory Results 07/16/22 13:47: Serum Osmolality 321 H 07/16/22 13:47: PT 19.4 H, INR 1.7 07/16/22 15:50: POC Glucose 130 H 07/16/22 17:43: Sodium 141, Potassium 3.9, Chloride 110 H, Carbon Dioxide 16.0 L , Anion Gap 15, BUN 108 H*, Creatinine 3.23 H, Estim Creat Clear Calc 21.66, Est GFR (MDRD) Af Amer 25 L, Est GFR (MDRD) Non-Af 20 L, BUN/Creatinine Ratio 33.4 H , Glucose 126 H, Calcium 8.4 L 07/16/22 21:05: POC Glucose 112 H 07/17/22 05:05: WBC 6.9, RBC 2.73 L, Hgb 6.6 L, Hct 21.5 L, MCV 78.8 L, MCH 24.2 L, MCHC 30.7 L, RDW Std Deviation 65.1 H, RDW Coeff of Chidi 23.1 H, Plt Count 173, MPV 10.2, Neut % (Auto) Not Reportable, Absolute Neuts (auto) 5.7, Absolute Lymphs (auto) 0.55 L, Total Counted 100, Neutrophils % (Manual) 79 H, Lymphocytes % (Manual) 8 L, Monocytes % (Manual) 10, Metamyelocytes % 2 H, Myelocytes % 1 H, Diff Path Review May foll, Platelet Estimate ADEQUATE, Anisocytosis 2+, Microcytosis 1+, Ovalocytes RARE 07/17/22 05:05: Sodium 141, Potassium 3.9, Chloride 112 H, Carbon Dioxide 18.0 L , BUN 89 H, Creatinine 2.88 H, Estim Creat Clear Calc 24.29, Est GFR (MDRD) Af Amer 28 L, Est GFR (MDRD) Non-Af 23 L, BUN/Creatinine Ratio 30.9 H, Glucose 120 H, Calcium 8.3 L, Phosphorus 3.5, Albumin 1.7 L 07/17/22 06:35: POC Glucose 115 H 07/17/22 06:55: Blood Type A POSITIVE, Antibody Screen NEGATIVE, Crossmatch See Detail Clinical Impression(s) from Imaging Studies Brain CT 07/16/22 09:46 IMPRESSION: 1.59 x 1.05 x 1.43 cm hyperdense lesion in the posterior left occipital region along the falx. This may represent a meningioma. There is no associated edema mass effect or midline shift. This was not seen on the previous study of 2013. Recommend further evaluation with contrasted CT or MRI. Age consistent atrophic periventricular and deep white matter changes, no acute hemorrhage Abdomen Ultrasound 07/16/22 11:08 IMPRESSION: 1. Limited study due to bowel gas patient condition. The pancreas is incompletely visualized. 2. Distended gallbladder without wall thickening or filling defect.. 3. Heterogenous liver without focal mass. 4. Otherwise normal right upper quadrant abdominal ultrasound. Renal Ultrasound 07/16/22 11:08 IMPRESSION: 1. Increased renal cortical echogenicity of the right kidney consistent with medical renal disease. 2. Small left renal cyst. 3. Enlarged prostate. Lumbar Spine X-Ray 07/16/22 13:16 IMPRESSION: No acute abnormality. Moderate spondylosis. Electronically Signed: Hans Nguyen MD at 14:13 EDT , Charges/Coding Visit Charges Inpatient E&M: 62599 Subs Hosp L3
[2022-07-17 12:06] LABS: Bedside Glucose 131 mg/dL (74-106)
--- NOTE | 2022-07-17 15:00 | PCM.CONS.GEN ---
Assessment & Plan Assessment/Plan (1) Anemia, unspecified: PLAN: . When his mental status is a little bit better I would recommend that he undergo an upper endoscopy to evaluate his upper GI tract. Such as hemoglobin is 6.6 I recommend to transfuse 1 unit of packed red blood cells. I am okay with him having PPI drip as long as that is okay with nephrology. (2) Acute kidney injury: PLAN: His BUN to creatinine ratio is very elevated along with his BUN. This could be secondary to an acute GI bleed and reabsorption of blood causing increased BUN and the setting of acute kidney injury with the patient likely has chronic kidney disease. He is getting better with IV fluids. Continue as per nephrology recommendations HPI Consult Data Date of Consult: 07/17/22 HPI Narrative Reason for Consultation: Anemia HPI Narrative: ANGELES PHELPS, is a 72 M who presented from [facility] because of abnormal labs.? He was found to have BUN of 113 mg/dL and creatinine of 3.58 mg/dL. He also has a past history of type 2 diabetes mellitus, hypertension, CAD status post CABG, hyperlipidemia, BPH, and anemia.? The patient also has a history of hip fracture with fracture of right lesser trochanter and right femur which was attributed to malignant neoplasm possibly from prostate cancer. He is being seen by nephrology and is being treated with IV fluids and his BUN to creatinine ratio and individual chemistries are getting better. However when he came into the hospital his hemoglobin was 7.2 and this morning is down to 6.6. Looks like his hemoglobin has been fairly normal until recently. He is not a good historian and cannot tell me if he has any dark stools or any bright red blood per rectum in the recent future. He takes 81 g of aspirin a day but no other blood thinners. Since being in the hospital he was started on a Protonix drip. [facility] Medical History (Updated 07/16/22 @ 19:[address] Milena Goodwin MD) Anemia, unspecified BPH (benign prostatic hyperplasia) Displaced fracture of lesser trochanter of right femur, subsequent encounter for closed fracture with routine healing Essential (primary) hypertension Gastro-esophageal reflux disease without esophagitis Generalized weakness Hyperlipidemia, unspecified Malignant neoplasm of prostate Other pancytopenia Pathological fracture, other site, subsequent encounter for fracture with routine healing Pathological fracture, right femur, subsequent encounter for fracture with routine healing Secondary malignant neoplasm of bone Type 2 diabetes mellitus without complications Unspecified fracture of left ilium, subsequent encounter for fracture with routine healing Medical History unable to obtain Home Medications aspirin 81 mg tablet 81 mg PO DAILY 07/16/22 [History Last Taken Unknown] cholecalciferol (vitamin D3) 25 mcg (1,000 unit) tablet 25 mcg PO DAILY 07/16/22 [History Last Taken Unknown] enoxaparin 40 mg/0.4 mL subcutaneous syringe 40 mg subcut DAILY 07/16/22 [History Last Taken Unknown] enzalutamide 40 mg capsule 160 mg PO DAILY 07/16/22 [History Last Taken Unknown] ezetimibe 10 mg tablet 10 mg PO DAILY 07/16/22 [History Last Taken Unknown] metformin 1,000 mg tablet 1,000 mg PO BID 07/16/22 [History Last Taken Unknown] metoprolol succinate 25 mg capsule sprinkle, ext. release 24 hr 25 mg PO DAILY 07/16/22 [History Last Taken Unknown] multivitamin 1 tab PO DAILY 07/16/22 [History Last Taken Unknown] oxycodone 15 mg tablet 15 mg PO BID PRN Pain 07/16/22 [History Last Taken Unknown] oxycodone 5 mg tablet 2.5 mg PO Q4H PRN Pain 07/16/22 [History Last Taken Unknown] pantoprazole 40 mg granules delayed-release for susp in packet 40 mg PO DAILY 07/16/22 [History Last Taken Unknown] ropinirole 0.25 mg tablet 0.25 mg PO QHS 07/16/22 [History Last Taken Unknown] rosuvastatin 40 mg tablet 40 mg PO DAILY 07/16/22 [History Last Taken Unknown] tamsulosin 0.4 mg capsule 0.4 mg PO DAILY 07/16/22 [History Last Taken Unknown] Allergy/AdvReac Type Severity Reaction Status Date / Time No Known Allergies Allergy Verified 07/16/22 09:23 Family History unable to obtain Surgical History unable to obtain Social History household members: none Smoking Status: Former smoker substance use type: does not use ROS ROS Narrative 08/02 ROS was done. It is otherwise noncontributory aside from what is already documented in HPI. Physical Exam Narrative Seen and examined General: Awake, alert, oriented x2. States he cannot sit up or roll over HEENT: Atraumatic, PERRLA, EOMI, Normocephalic Oral: No Gingival or Mucosal Lesions/ Ulcerations Neck: Supple, No JVD, Negative Carotid Bruits Lungs: Air entry diminished in bilateral lung bases. No crepitation/rhonchi Cardiovascular: Sinus rhythm, CABG scar. Normal S1, Normal S2, systolic murmur LLSB and cardiac apex Abdomen: Bowel Sounds Present, Soft, Non Tender, Non-Distended. Small subcutaneous fatty lump on right lower quadrant. Mobile, probably lipoma. Chronic : No renal angle tenderness. No suprapubic tenderness. Extremities: No edema, Capillary Refill Less than 3 Seconds Skin: No rashes, No breakdown Musculoskeletal/spine: Unable to roll over or sit up. Mild tenderness in lumbar area. Tenderness present over right hip region, right thigh. Muscle strength, ROM not examined due to extreme pain. Neurological: Cranial nerves II-XII grossly intact, DTR 2+/4. Psych/Mental Status: Flat affect. Tangential history. Possible personality disorder Medical Records Data Medical Nutrition Assessment Dietitian: Malnutrition Criteria Met Start: 07/16/22 15:15 Freq: Status: Active Protocol: Document 07/16/22 15:15 (Rec: 07/16/22 15:15 [id number]) Nutrition Malnutrition Evidence of Malnutrition Exists Yes Malnutrition (severe): Acute Illness/Injury Evidenced By Suboptimal Energy Intake ( Severe),Weight Loss (Severe), Physical Changes (Moderate) Clinical Problem Acute Disease or Injury Related Malnutrition Etiology severe, acute malnutrition related to inadequate energy intake d/t pain Signs/Symptoms as evidenced by unintentional wt loss of 12.2#/7% <1 week; estimated PO intake meeting < 50% of estimated energy needs >5 days; Moderate muscle wasting/fat loss evident per physical exam in orbital, temporal, clavicle, and acromion region. Status Active Problem Recommendation Dietitian Recommendations/Changes regular diet; 120mL ensure plus high protein w/ medpass for additional calories/ protein if consumed. Lab / Micro Data Result Diagrams: 07/17/22 05:05 07/17/22 05:05 Labs: Laboratory Results - last 24 hr 07/16/22 15:50: POC Glucose 130 H 07/16/22 17:43: Sodium 141, Potassium 3.9, Chloride 110 H, Carbon Dioxide 16.0 L, Anion Gap 15, BUN 108 H*, Creatinine 3.23 H, Estim Creat Clear Calc 21.66, Est GFR (MDRD) Af Amer 25 L, Est GFR (MDRD) Non-Af 20 L, BUN/Creatinine Ratio 33.4 H, Glucose 126 H, Calcium 8.4 L 07/16/22 21:05: POC Glucose 112 H 07/17/22 05:05: WBC 6.9, RBC 2.73 L, Hgb 6.6 L, Hct 21.5 L, MCV 78.8 L, MCH 24.2 L, MCHC 30.7 L, RDW Std Deviation 65.1 H, RDW Coeff of Chidi 23.1 H, Plt Count 173, MPV 10.2, Neut % (Auto) Not Reportable, Absolute Neuts (auto) 5.7, Absolute Lymphs (auto) 0.55 L, Total Counted 100, Neutrophils % (Manual) 79 H, Lymphocytes % (Manual) 8 L, Monocytes % (Manual) 10, Metamyelocytes % 2 H, Myelocytes % 1 H, Diff Path Review May , Platelet Estimate ADEQUATE, Anisocytosis 2+, Microcytosis 1+, Ovalocytes RARE 07/17/22 05:05: Sodium 141, Potassium 3.9, Chloride 112 H, Carbon Dioxide 18.0 L, BUN 89 H, Creatinine 2.88 H, Estim Creat Clear Calc 24.29, Est GFR (MDRD) Af Amer 28 L, Est GFR (MDRD) Non-Af 23 L, BUN/Creatinine Ratio 30.9 H, Glucose 120 H, Calcium 8.3 L, Phosphorus 3.5, Albumin 1.7 L 07/17/22 06:35: POC Glucose 115 H 07/17/22 06:55: Blood Type A POSITIVE, Antibody Screen NEGATIVE, Crossmatch See Detail 07/17/22 11:40: POC Glucose 131 H Micro: Microbiology 07/17/22 11:00 Stool Stool Occult Blood (DOUGLAS) - Final Occult Blood Positive 07/16/22 09:26 Urine, Clean Catch Urine Culture - Preliminary Mixed Gram Pos & Gram Neg Org Radiology Impression Abdomen Ultrasound 07/16/22 11:08 IMPRESSION: 1. Limited study due to bowel gas patient condition. The pancreas is incompletely visualized. 2. Distended gallbladder without wall thickening or filling defect.. 3. Heterogenous liver without focal mass. 4. Otherwise normal right upper quadrant abdominal ultrasound. Electronically Signed: Kale Rivera DO at 18:02 EDT Reading Location ID and State: [facility] / [place] Tel [phone], Service support , Renal Ultrasound 07/16/22 11:08 IMPRESSION: 1. Increased renal cortical echogenicity of the right kidney consistent with medical renal disease. 2. Small left renal cyst. 3. Enlarged prostate. Electronically Signed: Kale Rivera DO at 18:08 EDT Reading Location ID and State: [facility] / [place] Tel [phone], Service support , Charges/Coding Visit Charges Inpatient E&M: 70787 Init Hosp L3
[2022-07-17 16:09] LABS: Hematocrit 24.8 % (40-54); Hemoglobin 7.9 g/dL (13.0-16.5)
[2022-07-17 16:35] LABS: Bedside Glucose 102 mg/dL (74-106)
[2022-07-17] MEDS: Pramipexole Di-HCl 0.125 MG Tablet PO (20:20)
[2022-07-17 22:05] LABS: Bedside Glucose 137 mg/dL (74-106)
[2022-07-18] VITALS (14 sets, daily range): BP systolic 122–127; BP diastolic 76–86; PULSE 94–107; RESP 18; TEMP 36.6–36.9; O2SAT 94–98
[2022-07-18] MEDS: Acetaminophen 325 MG Tablet 650 MG PO ×2 (03:00→20:11)
[2022-07-18] MEDS: tiZANidine HCl 2 MG Tablet PO ×2 (03:01→15:54)
[2022-07-18] MEDS: oxyCODONE 5 MG Tablet PO ×3 (03:01→19:03)
[2022-07-18 05:53] LABS: Hematocrit 23.5 % (40-54); Hemoglobin 7.5 g/dL (13.0-16.5); Mean Corp Hgb Conc 31.9 g/dL (32-36); Mean Corpuscular Hgb 24.3 pg (27.0-32.0); Mean Corpuscular Volume 76.1 fL (80-94); Mean Platelet Vol. 9.8 fl (6.2-12.0); POSITIVE COUNT YES; POSITIVE MORPHOLOGY YES; Platelet Count 179 K/mm3 (150-450); RBC Distribution Width CV 22.2 % (11.6-14.6); RBC Distribution Width SD 60.5 fl (35.1-43.9); Red Blood Count 3.09 M/mm3 (4.6-6.2); White Blood Count 8.4 K/mm3 (4.4-11.0)
[2022-07-18 06:11] LABS: Bedside Glucose 127 mg/dL (74-106)
[2022-07-18 06:23] LABS: Differential Indicated MANUAL DIFF
[2022-07-18 06:39] LABS: Anion Gap 12 (5-15); BUN 73 mg/dL (7-18); BUN/Creat Ratio 33.2 RATIO (10-20); Calcium,Total 8.4 mg/dL (8.5-10.1); Chloride 110 mmol/L (98-107); EST Glomerular Filtration Rate 32 mL/min (>60); Est Glom Filt Rate - Afr Amer 38 mL/min (>60); Glucose 133 mg/dL (74-106); Magnesium 1.9 mg/dL (1.6-2.6); Phosphorus 2.6 mg/dL (2.5-4.9); Potassium 3.4 mmol/L (3.5-5.1); Sodium Level 140 mmol/L (136-145)
[2022-07-18 06:48] LABS: Eosinophil 2 % (0-5); Lymphocyte 7 % (19-41); Metamyelocyte 5 % (0-1); Monocyte 11 % (0-10); Myelocyte 2 % (0-0); Neutrophil-Band 3 % (0-5); Neutrophil-Segmented 70 % (47-70); Platelet Estimate ADEQUATE (ADEQ); Total Cells Counted 100 (MANUAL DIFF)
[2022-07-18 06:49] LABS: Absolute Lymphocyte Count 0.59 X10^3/uL (0.83-4.51); Absolute Neutrophil Count 6.2 X10^3/uL (2.0-7.7); Anisocytosis 1+; Hypochromasia RARE; Lymphocyte # 0.59 X10^3/ul (0.83-4.51); Microcytosis 1+; Neutrophil # 6.16 X10^3/uL (2.7-7.7)
--- NOTE | 2022-07-18 07:36 | PN.HOSP_ITS ---
Subjective Subjective Follow-up for YOUSUF on CKD, severe anemia possible GI bleed, lower back pain and hip pain Patient still complains of lumbar back pain. Creatinine improving. Seen by GI. Objective Data Objective Data Vital Signs: Vital Signs Temp Pulse Resp BP Pulse Ox O2 Del Method 97.8 F 107 H 18 123/80 H 94 Room Air 07/18/22 02:54 07/18/22 02:54 07/18/22 02:54 07/18/22 02:54 07/18/22 07:09 07/18/22 07:09 Oxygen Delivery Method Room Air Weight: 167 lb 8.821 oz Body Mass Index (BMI) 23.6 Intake & Output: Intake and Output for Last 24 Hours 07/16/22 07/17/22 07/18/22 23:59 23:59 23:59 Intake Total 2009 2220 / 2220 Output Total 750 / 750 1650 / 1650 225 / 225 Balance 1260 / 1260 570 / 570 -225 / -225 Medical Nutrition Assessment Dietitian: Malnutrition Criteria Met Start: 07/16/22 15:15 Freq: Status: Active Protocol: Document 07/16/22 15:15 AG (Rec: 07/16/22 15:15 AG [id number]) Nutrition Malnutrition Evidence of Malnutrition Exists Yes Malnutrition (severe): Acute Illness/Injury Evidenced By Suboptimal Energy Intake ( Severe),Weight Loss (Severe), Physical Changes (Moderate) Clinical Problem Acute Disease or Injury Related Malnutrition Etiology severe, acute malnutrition related to inadequate energy intake d/t pain Signs/Symptoms as evidenced by unintentional wt loss of 12.2#/7% <1 week; estimated PO intake meeting < 50% of estimated energy needs >5 days; Moderate muscle wasting/fat loss evident per physical exam in orbital, temporal, clavicle, and acromion region. Status Active Problem Recommendation Dietitian Recommendations/Changes regular diet; 120mL ensure plus high protein w/ medpass for additional calories/ protein if consumed. Lab / Micro Data Result Diagrams: 07/18/22 05:05 07/18/22 05:05 Labs: Laboratory Results - last 24 hr 07/17/22 06:55: Blood Type A POSITIVE, Antibody Screen NEGATIVE, Crossmatch See Detail 07/17/22 11:40: POC Glucose 131 H 07/17/22 15:40: Hgb 7.9 L, Hct 24.8 L 07/17/22 16:16: POC Glucose 102 07/17/22 20:15: POC Glucose 137 H 07/18/22 05:05: WBC 8.4, RBC 3.09 L, Hgb 7.5 L, Hct 23.5 L, MCV 76.1 L, MCH 24.3 L, MCHC 31.9 L, RDW Std Deviation 60.5 H, RDW Coeff of Chidi 22.2 H, Plt Count 179, MPV 9.8, Neut % (Auto) Not Reportable, Absolute Neuts (auto) 6.2, Absolute Lymphs (auto) 0.59 L, Total Counted 100, Neutrophils % (Manual) 70, Band Neutrophils % 3, Lymphocytes % (Manual) 7 L, Monocytes % (Manual) 11 H, Eosinophils % (Manual) 2, Metamyelocytes % 5 H, Myelocytes % 2 H, Diff Path Review May foll, Platelet Estimate ADEQUATE, Hypochromasia RARE, Anisocytosis 1+, Microcytosis 1+ 07/18/22 05:05: Sodium 140, Potassium 3.4 L, Chloride 110 H, Carbon Dioxide 18.0 L, Anion Gap 12, BUN 73 H, Creatinine 2.20 H, Estim Creat Clear Calc 31.80, Est GFR (MDRD) Af Amer 38 L, Est GFR (MDRD) Non-Af 32 L, BUN/Creatinine Ratio 33.2 H , Glucose 133 H, Calcium 8.4 L, Phosphorus 2.6, Magnesium 1.9 07/18/22 05:48: POC Glucose 127 H Micro: Microbiology 07/17/22 11:00 Stool Stool Occult Blood (DOUGLAS) - Final Occult Blood Positive 07/16/22 09:26 Urine, Clean Catch Urine Culture - Preliminary Mixed Gram Pos & Gram Neg Org Physical Exam Narrative Seen and examined General: Awake, alert, oriented x3. Still patient cannot sit up or roll over HEENT: Atraumatic, PERRLA, EOMI, Normocephalic Oral: No Gingival or Mucosal Lesions/ Ulcerations Neck: Supple, No JVD, Negative Carotid Bruits Lungs: Air entry diminished in bilateral lung bases. No crepitation/rhonchi Cardiovascular: Sinus rhythm, CABG scar. Normal S1, Normal S2, systolic murmur LLSB and cardiac apex Abdomen: Bowel Sounds Present, Soft, Non Tender, Non-Distended. Mobile, probably lipoma in RLQ abdominal wall. : No renal angle tenderness. No suprapubic tenderness. Extremities: No edema, Capillary Refill Less than 3 Seconds Skin: No rashes, No breakdown Musculoskeletal/spine: Unable to roll over or sit up. Mild tenderness in lumbar area. Tenderness present over right hip region, right thigh. Muscle strength, ROM not examined due to extreme pain. Neurological: Cranial nerves II-XII grossly intact, DTR 2+/4. Psych/Mental Status: Flat affect. Tangential history. Possible personality disorder Assessment & Plan Assessment/Plan (1) Acute kidney injury: (2) Encephalopathy acute: PLAN: Plan This is a 75-year-old gentleman was admitted from residential for abnormal labs. 1. Acute kidney injury on CKD 3, unclear 3A or 3B: Patient baseline BUN/creatinine was 15/1.5 in November 2012. No labs until 07/09/22 when BUN/creatinine 49/2.44. Patient is admitted with 113/3.58. Patient is hyperchloremic non-anion gap metabolic acidosis. Bicarb 16, chloride 118. S tarted on IV fluid Ringer lactate. UA shows occult blood 250, protein 30 glucose 50 but negative RBC WBC. Bacteria 2+. Urine osmolality 397, protein creatinine ratio 2.185 g. CK is elevated, 417 not in the range of rhabdomyolysis. I discussed with control system manager, Dr. Flannery and consulted him. No hyperkalemia. 07/17: Kidney ultrasound shows increased echogenicity of right kidney. Proteinuria 2185 mg/g of creatinine, nonnephrotic range probably diabetic nephropathy. Urine osmolarity 397 more than serum osmolality 321. Urine sodium 28, potassium 26. Urine culture shows mixed gram-positive gram-negative organisms suggestive of contamination. Overall improvement in BUN/creatinine. Liver ultrasound was heterogeneous without mass-effect or cirrhosis otherwise normal liver ultrasound. 07/18: Patient had 1600 urine output yesterday. BUN/creatinine improving. Patient moved bowel yesterday. 2. Acute on chronic severe anemia mostly due to upper GI bleed: Hemoglobin dropped to 6.6 from 7.2. It was 7.4 on 07/09. Before that, hemoglobin 15.4 in November 2012. Stool for occult blood positive. Monitor PRBC transfusion. Protonix 40 mg IV twice daily.GI consulted. Patient undergoing 1 unit of PRBC transfusion. Repeat H&H posttransfusion. 07/18: Seen by GI. Plan for EGD when hemodynamically stable and mental function improves. Patient had 1 unit of PRBC transfusion. Posttransfusion hemoglobin 7.9 and then dropped to 7.5 today. IV iron: 50 mg ordered 3. Acute encephalopathy, exact etiology unclear suspect metabolic from uremia with incidental finding of brain mass/meningioma: I also think patient has baseline mental disorder/psychiatric diagnosis or personality disorder. Treat the underlying disorder. CT brain reported 1.59 x 1.05 x 1.43 cm hyperdense lesion in the posterior left occipital region along the falx. This may represent a meningioma. There is no associated edema mass effect or midline shift. This was not seen on the previous study of 2013. When patient is more stable we will do MRI brain . 07/18: Patient mental status better. He talks more quadrant. Acute encephalopathy resolved. MRI brain ordered tomorrow a.m. for them as described. 3. Left pathological fracture of right hip/proximal femur status postrepair, secondary malignant neoplasm of bone with possible primary prostate cancer: Details not available. Patient on enzalutamide 160 mg daily. Hold it for acute kidney injury. 4. Lumbar spine pain: Exact etiology unclear: Lumbar spine x-ray reported degenerative changes of moderate multilevel vertebral body osteophytosis and dis c narrowing at multiple levels. Facet arthropathy. No acute change. Lumbar back pain is localized 5. Diabetes mellitus type 2: Accu-Chek insulin coverage Humalog sliding scale. Glucose is controlled 6. Other multiple comorbidities include Favian artery status post CABG, last PCI, hypertension, dyslipidemia, GERD: Home medication reconciliation Total time of the visit including total time spent in counseling or coordination of care, (more than 50% of the total time, spent in obtaining medical information from nurses and other ancillary care providers,explaining to the patient about labs, imaging, diagnosis and management of active complex medical conditions), discussion with oxidation operator and control system manager, review of labs and imaging is 45 minutes. Microbiology Past 72 Hours 07/16/22 09:26 Urine, Clean Catch Urine Culture - Final Mixed Gram Pos & Gram Neg Org 07/17/22 11:00 Stool Stool Occult Blood (DOUGLAS) - Final Occult Blood Positive Laboratory Results 07/17/22 06:55: Crossmatch See Detail 07/17/22 15:40: Hgb 7.9 L, Hct 24.8 L 07/17/22 16:16: POC Glucose 102 07/17/22 20:15: POC Glucose 137 H 07/18/22 05:05: WBC 8.4, RBC 3.09 L, Hgb 7.5 L, Hct 23.5 L, MCV 76.1 L, MCH 24.3 L, MCHC 31.9 L, RDW Std Deviation 60.5 H, RDW Coeff of Chidi 22.2 H, Plt Count 179, MPV 9.8, Neut % (Auto) Not Reportable, Absolute Neuts (auto) 6.2, Absolute Lymphs (auto) 0.59 L, Total Counted 100, Neutrophils % (Manual) 70, Band Neutrophils % 3, Lymphocytes % (Manual) 7 L, Monocytes % (Manual) 11 H, Eosinophils % (Manual) 2, Metamyelocytes % 5 H, Myelocytes % 2 H, Diff Path Review May foll, Platelet Estimate ADEQUATE, Hypochromasia RARE, Anisocytosis 1+, Microcytosis 1+ 07/18/22 05:05: Sodium 140, Potassium 3.4 L, Chloride 110 H, Carbon Dioxide 18.0 L, Anion Gap 12, BUN 73 H, Creatinine 2.20 H, Estim Creat Clear Calc 31.80, Est GFR (MDRD) Af Amer 38 L, Est GFR (MDRD) Non-Af 32 L, BUN/Creatinine Ratio 33.2 H , Glucose 133 H, Calcium 8.4 L, Phosphorus 2.6, Magnesium 1.9 07/18/22 05:48: POC Glucose 127 H Clinical Impression(s) from Imaging Studies Brain CT 07/16/22 09:46 IMPRESSION: 1.59 x 1.05 x 1.43 cm hyperdense lesion in the posterior left occipital region along the falx. This may represent a meningioma. There is no associated edema mass effect or midline shift. This was not seen on the previous study of 2013. Recommend further evaluation with contrasted CT or MRI. Age consistent atrophic periventricular and deep white matter changes, no acute hemorrhage Abdomen Ultrasound 07/16/22 11:08 IMPRESSION: 1. Limited study due to bowel gas patient condition. The pancreas is incompletely visualized. 2. Distended gallbladder without wall thickening or filling defect.. 3. Heterogenous liver without focal mass. 4. Otherwise normal right upper quadrant abdominal ultrasound. Renal Ultrasound 07/16/22 11:08 IMPRESSION: 1. Increased renal cortical echogenicity of the right kidney consistent with medical renal disease. 2. Small left renal cyst. 3. Enlarged prostate. Lumbar Spine X-Ray 07/16/22 13:16 IMPRESSION: No acute abnormality. Moderate spondylosis. Electronically Signed: Hans Nguyen MD at 14:13 EDT , Charges/Coding Visit Charges Inpatient E&M: 13324 Subs Hosp L3
[2022-07-18] MEDS: Potassium Chloride Oral Tablet 20 MEQ 40 MEQ PO (08:14)
[2022-07-18] MEDS: Multivitamins,Therapeutic Tablet 1 TABLET PO (08:14)
[2022-07-18] MEDS: Tamsulosin HCl 0.4 MG Capsule PO (08:15)
[2022-07-18] MEDS: Cholecalciferol (VIT D3) 25 MCG TABLET (1,000 UNITS) 100 MCG PO (10:31)
[2022-07-18] MEDS: Senna/Docusate Sodium 1 Tablet 2 TABLET PO ×2 (10:32→21:59)
[2022-07-18] MEDS: Metoprolol(XL)Succ 25 MG Tablet PO (10:32)
[2022-07-18] MEDS: oxyCODONE CR 15 MG Tablet PO ×2 (10:37→21:58)
[2022-07-18] MEDS: 0.9% Saline Lock 10 ML Syringe IV (10:38)
[2022-07-18 12:21] LABS: Bedside Glucose 137 mg/dL (74-106)
--- NOTE | 2022-07-18 14:56 | PN.RENAL_ITS ---
Subjective Subjective No new complaints. He says low back pain has been still present. Objective Data Objective Data Vital Signs: Vital Signs Temp Pulse Resp BP Pulse Ox O2 Del Method 98 F 99 18 127/76 H 98 Room Air 07/18/22 09:00 07/18/22 12:00 07/18/22 09:00 07/18/22 10:32 07/18/22 10:00 07/18/22 10:00 Oxygen Delivery Method Room Air Weight: 76 kg Body Mass Index (BMI) 23.6 Intake & Output: Intake and Output for Last 24 Hours 07/16/22 07/17/22 07/18/22 23:59 23:59 23:59 Intake Total 2009 2220 / 2220 710 / 710 Output Total 750 / 750 1650 / 1650 1075 / 1075 Balance 1260 / 1260 570 / 570 -365 / -365 Medical Nutrition Assessment Dietitian: Malnutrition Criteria Met Start: 07/16/22 15:15 Freq: Status: Active Protocol: Document 07/16/22 15:15 AG (Rec: 07/16/22 15:15 AG [id number]) Nutrition Malnutrition Evidence of Malnutrition Exists Yes Malnutrition (severe): Acute Illness/Injury Evidenced By Suboptimal Energy Intake ( Severe),Weight Loss (Severe), Physical Changes (Moderate) Clinical Problem Acute Disease or Injury Related Malnutrition Etiology severe, acute malnutrition related to inadequate energy intake d/t pain Signs/Symptoms as evidenced by unintentional wt loss of 12.2#/7% <1 week; estimated PO intake meeting < 50% of estimated energy needs >5 days; Moderate muscle wasting/fat loss evident per physical exam in orbital, temporal, clavicle, and acromion region. Status Active Problem Recommendation Dietitian Recommendations/Changes regular diet; 120mL ensure plus high protein w/ medpass for additional calories/ protein if consumed. Lab / Micro Data Result Diagrams: 07/18/22 05:05 07/18/22 05:05 Labs: Laboratory Results - last 24 hr 07/17/22 15:40: Hgb 7.9 L, Hct 24.8 L 07/17/22 16:16: POC Glucose 102 07/17/22 20:15: POC Glucose 137 H 07/18/22 05:05: WBC 8.4, RBC 3.09 L, Hgb 7.5 L, Hct 23.5 L, MCV 76.1 L, MCH 24.3 L, MCHC 31.9 L, RDW Std Deviation 60.5 H, RDW Coeff of Chidi 22.2 H, Plt Count 179, MPV 9.8, Neut % (Auto) Not Reportable, Absolute Neuts (auto) 6.2, Absolute Lymphs (auto) 0.59 L, Total Counted 100, Neutrophils % (Manual) 70, Band Neutrophils % 3, Lymphocytes % (Manual) 7 L, Monocytes % (Manual) 11 H, Eosinophils % (Manual) 2, Metamyelocytes % 5 H, Myelocytes % 2 H, Diff Path Review February, Platelet Estimate ADEQUATE, Hypochromasia RARE, Anisocytosis 1+, Microcytosis 1+ 07/18/22 05:05: Sodium 140, Potassium 3.4 L, Chloride 110 H, Carbon Dioxide 18.0 L, Anion Gap 12, BUN 73 H, Creatinine 2.20 H, Estim Creat Clear Calc 31.80, Est GFR (MDRD) Af Amer 38 L, Est GFR (MDRD) Non-Af 32 L, BUN/Creatinine Ratio 33.2 H , Glucose 133 H, Calcium 8.4 L, Phosphorus 2.6, Magnesium 1.9 07/18/22 05:48: POC Glucose 127 H 07/18/22 11:59: POC Glucose 137 H Micro: Microbiology 07/16/22 09:26 Urine, Clean Catch Urine Culture - Final Mixed Gram Pos & Gram Neg Org 07/17/22 11:00 Stool Stool Occult Blood (DOUGLAS) - Final Occult Blood Positive Physical Exam Narrative Alert awake oriented x 3 no obvious distress no pallor no icterus no JVD s1s2 no murmurs lungs clear abdomen soft no organomegaly no edema no cyanosis Assessment & Plan Assessment/Plan (1) Acute kidney injury: PLAN: Serum creatinine from 07/09/2022 was already elevated at 2.44 mg/dL. The patient also had elevated creatinine from 12/03/2012 and 1.50 mg/dL. Therefore, there is a component of chronic kidney disease. The patient has si gnificant proteinuria, so CKD is likely due to diabetic kidney disease. However, serum creatinine has increased to 3.58 mg/dL on presentation on 07/16/2022. Suspect YOUSUF could be secondary to volume depletion Ultrasound of the kidney did not show any evidence of obstruction. Low suspicion for other causes of YOUSUF at this point. Creatinine is closer to baseline (2) Hypertension: PLAN: BP is acceptable. Continue current antihypertensive (3) Displaced fracture of lesser trochanter of right femur, subsequent encounter for closed fracture with routine healing: PLAN: Pain control as per hospital medicine service. SPEP pending (4) BPH (benign prostatic hyperplasia): PLAN: There is no evidence of obstruction on renal ultrasound on 07/16/2022..
[2022-07-18 17:26] LABS: Bedside Glucose 106 mg/dL (74-106)
[2022-07-18] MEDS: Lactated Ringers 1,000 ML 60 ML IV (18:21)
[2022-07-18] MEDS: Pramipexole Di-HCl 0.125 MG Tablet PO (20:45)
[2022-07-18] MEDS: Ensure Plus High Protein 120 ML LIQUID PO (22:00)
[2022-07-19] VITALS (10 sets, daily range): BP systolic 111–123; BP diastolic 68–83; PULSE 80–109; RESP 14–18; TEMP 36.3–36.9; O2SAT 94–99
[2022-07-19 00:11] LABS: Bedside Glucose 105 mg/dL (74-106)
[2022-07-19] MEDS: oxyCODONE 5 MG Tablet PO ×3 (04:33→16:21)
[2022-07-19 05:01] LABS: Hematocrit 26.7 % (40-54); Hemoglobin 8.5 g/dL (13.0-16.5); Mean Corp Hgb Conc 31.8 g/dL (32-36); Mean Corpuscular Hgb 24.6 pg (27.0-32.0); Mean Corpuscular Volume 77.4 fL (80-94); Mean Platelet Vol. 9.9 fl (6.2-12.0); POSITIVE COUNT YES; POSITIVE MORPHOLOGY YES; Platelet Count 207 K/mm3 (150-450); RBC Distribution Width CV 21.8 % (11.6-14.6); RBC Distribution Width SD 60.5 fl (35.1-43.9); Red Blood Count 3.45 M/mm3 (4.6-6.2); White Blood Count 11.4 K/mm3 (4.4-11.0)
[2022-07-19 05:13] LABS: Differential Indicated MANUAL DIFF
[2022-07-19 05:23] LABS: Anion Gap 10 (5-15); BUN 49 mg/dL (7-18); BUN/Creat Ratio 29.5 RATIO (10-20); Calcium,Total 8.4 mg/dL (8.5-10.1); Chloride 107 mmol/L (98-107); Creatinine, Serum 1.66 mg/dL (0.70-1.30); EST Glomerular Filtration Rate 44 mL/min (>60); Est Glom Filt Rate - Afr Amer 53 mL/min (>60); Estimated Creatinine Clearance 42.14 ml/min; Glucose 117 mg/dL (74-106); Potassium 3.5 mmol/L (3.5-5.1); Sodium Level 138 mmol/L (136-145)
--- NOTE | 2022-07-19 05:55 | MRI_ITS ---
STUDY: MRI BRAIN WITH AND WITHOUT CONTRAST REASON FOR EXAM: Male, 72 years old. brain mass, reported in CT scan. Encephalopathy -- Had right hip surgery recently. TECHNIQUE: Standardized multiplanar fat and water weighted pulse sequences were obtained. IV 15ml clariscan was administered for the contrast portion of the examination. COMPARISON: Head CT dated December 28, 2013 and July 16, 2022. Prior brain MRI dated December 03, 2010 FINDINGS: There is a stable benign extra-axial meningioma in the anterior medial aspect of the left occipital lobe measuring 1.46 cm in diameter. This meningioma demonstrates avid postcontrast enhancement. There are no additional intra-axial or extra-axial masses of the brain. No aggressive or suspicious abnormalities are present. There is mild cerebral atrophy with widening of the extra-axial spaces and ventricular dilatation. There are a limited number of small white matter hyperintensities, distributed throughout the deep white matter tracts of the cerebral hemispheres, consistent with mild chronic white matter ischemic changes. Normal T2* images of the brain without demonstrated susceptibility artifact. There is no demonstrated hemosiderin stain. Normal bilateral basal ganglia. Normal thalami. There is no extra-axial fluid accumulation. Normal flow voids within the major intracranial circulation suggesting patency by spin echo criteria. Normal venous enhancement. Normal sella turcica, pituitary gland, infundibular stalk, optic chiasm and hypothalamus. Normal tectal plate and pineal gland. Normal midbrain, crystal and medulla. Normal cerebellum. Normal basal cisterns. Normal bilateral temporal bones. Normal bilateral internal auditory canals. No demonstrated orbital abnormality, within the constraints of a routine brain study. Normal visualized paranasal sinuses. Normal calvarium and skull base. Normal visualized soft tissue structures. Normal visualized upper cervical spine. MRI/Brain W/WO Contrast IMPRESSION: 1. Involutional changes of the brain, as described above. 2. Stable benign 1.46 cm left occipital lobe meningioma. Electronically Signed: Ismael Johnson MD at 12:27 EDT ,
[2022-07-19 06:50] LABS: Anisocytosis 2+; Microcytosis 1+
[2022-07-19 06:54] LABS: Absolute Lymphocyte Count 68.16 X10^3/uL (0.83-4.51); Absolute Neutrophil Count 8.6 X10^3/uL (2.0-7.7)
[2022-07-19 06:55] LABS: Bedside Glucose 115 mg/dL (74-106)
[2022-07-19 06:55] LABS: Lymphocyte 6 % (19-41); Metamyelocyte 4 % (0-1); Monocyte 12 % (0-10); Myelocyte 2 % (0-0); Neutrophil-Band 8 % (0-5); Neutrophil-Segmented 68 % (47-70); Total Cells Counted 100 (MANUAL DIFF)
[2022-07-19] MEDS: Acetaminophen 325 MG Tablet 650 MG PO ×2 (08:01→16:20)
[2022-07-19] MEDS: oxyCODONE CR 15 MG Tablet PO ×2 (08:02→21:17)
[2022-07-19] MEDS: Senna/Docusate Sodium 1 Tablet 2 TABLET PO ×2 (08:03→21:13)
[2022-07-19] MEDS: Tamsulosin HCl 0.4 MG Capsule PO (08:03)
[2022-07-19] MEDS: Multivitamins,Therapeutic Tablet 1 TABLET PO (08:04)
[2022-07-19] MEDS: Polyethylene Glycol 3350 17 GM PACKET PO (08:04)
[2022-07-19] MEDS: Cholecalciferol (VIT D3) 25 MCG TABLET (1,000 UNITS) 100 MCG PO (08:05)
[2022-07-19] MEDS: Metoprolol(XL)Succ 25 MG Tablet PO (08:05)
--- NOTE | 2022-07-19 09:38 | CASEMGMT ---
Addendum entered by Marsha Conley 07/19/22 10:09: [place] from [facility] reached out at 9:49 am. [place] to start precert at this time. DIANA Brar Original Note: Social Work SW faxed PT/OT evals and progress notes to [place] at [facility] following phone call to confirm pt will need precert. [place] requested these documents be sent to aid in obtaining precert. PLAN: [facility], pending precert DIANA Brar
--- NOTE | 2022-07-19 10:12 | NURSING ---
pt returned from MRI
--- NOTE | 2022-07-19 10:17 | CASEMGMT ---
Social Work SW attempted to meet with pt. PT out of room. SW to check back later. DIANA Brar
--- NOTE | 2022-07-19 10:38 | NURSING ---
pt remains off unit
[2022-07-19 11:56] LABS: Bedside Glucose 134 mg/dL (74-106)
[2022-07-19 12:34] LABS: Pathologist Review Reviewed
[2022-07-19 12:42] LABS: Pathologist Review Reviewed
[2022-07-19 12:45] LABS: Pathologist Review Reviewed
--- NOTE | 2022-07-19 13:09 | PCM.PROGNOTE ---
Subjective Subjective Patient still not making that much urine to previously hospital. He does complain of back pain and some epigastric discomfort. Objective Data Objective Data Vital Signs: Vital Signs Temp Pulse Resp BP Pulse Ox O2 Del Method O2 Flow Rate 98.0 F 106 H 18 123/76 H 99 Room Air 99 07/19/22 08:20 07/19/22 10:00 07/19/22 08:20 07/19/22 08:20 07/19/22 11:08 07/19/22 08:20 07/19/22 08:20 Oxygen Flow Rate (L/min) 99 Oxygen Delivery Method Room Air Weight: 213 lb 10.047 oz Body Mass Index (BMI) 23.6 Intake & Output: Intake and Output for Last 24 Hours 07/17/22 07/18/22 07/19/22 23:59 23:59 23:59 Intake Total 2220 / 2220 1450 / 1450 743 / 743 Output Total 1650 / 1650 1625 / 2125 1450 / 1450 Balance 570 / 570 -175 / -675 -707 / -707 Medical Nutrition Assessment Dietitian: Malnutrition Criteria Met Start: 07/16/22 15:15 Freq: Status: Active Protocol: Document 07/16/22 15:15 AG (Rec: 07/16/22 15:15 AG [id number]) Nutrition Malnutrition Evidence of Malnutrition Exists Yes Malnutrition (severe): Acute Illness/Injury Evidenced By Suboptimal Energy Intake ( Severe),Weight Loss (Severe), Physical Changes (Moderate) Clinical Problem Acute Disease or Injury Related Malnutrition Etiology severe, acute malnutrition related to inadequate energy intake d/t pain Signs/Symptoms as evidenced by unintentional wt loss of 12.2#/7% <1 week; estimated PO intake meeting < 50% of estimated energy needs >5 days; Moderate muscle wasting/fat loss evident per physical exam in orbital, temporal, clavicle, and acromion region. Status Active Problem Recommendation Dietitian Recommendations/Changes regular diet; 120mL ensure plus high protein w/ medpass for additional calories/ protein if consumed. Lab / Micro Data Result Diagrams: 07/19/22 04:21 07/19/22 04:21 Labs: Laboratory Results - last 24 hr 07/17/22 05:05: Diff Path Review Reviewed 07/18/22 05:05: Diff Path Review Reviewed 07/18/22 17:02: POC Glucose 106 09/25/22 22:02: POC Glucose 105 07/19/22 04:21: WBC 11.4 H, RBC 3.45 L, Hgb 8.5 L, Hct 26.7 L, MCV 77.4 L, MCH 24.6 L, MCHC 31.8 L, RDW Std Deviation 60.5 H, RDW Coeff of Chidi 21.8 H, Plt Count 207, MPV 9.9, Neut % (Auto) Not Reportable, Absolute Neuts (auto) 8.6 H, Absolute Lymphs (auto) 68.16 H, Total Counted 100, Neutrophils % (Manual) 68, Band Neutrophils % 8 H, Lymphocytes % (Manual) 6 L, Monocytes % (Manual) 12 H, Metamyelocytes % 4 H, Myelocytes % 2 H, Diff Path Review Reviewed, Anisocytosis 2+, Microcytosis 1+ 07/19/22 04:21: Sodium 138, Potassium 3.5, Chloride 107, Carbon Dioxide 21.0, Anion Gap 10, BUN 49 H, Creatinine 1.66 H, Estim Creat Clear Calc 42.14, Est GFR (MDRD) Af Amer 53 L, Est GFR (MDRD) Non-Af 44 L, BUN/Creatinine Ratio 29.5 H, Glucose 117 H, Calcium 8.4 L 07/19/22 05:31: POC Glucose 115 H 07/19/22 11:31: POC Glucose 134 H Micro: Microbiology 07/16/22 09:26 Urine, Clean Catch Urine Culture - Final Mixed Gram Pos & Gram Neg Org 07/17/22 11:00 Stool Stool Occult Blood (DOUGLAS) - Final Occult Blood Positive Radiography Diagnostic Testing: Radiology Impression Brain MRI 07/19/22 05:55 IMPRESSION: 1. Involutional changes of the brain, as described above. 2. Stable benign 1.46 cm left occipital lobe meningioma. Electronically Signed: Ismael Johnson MD at 12:27 EDT , Physical Exam Narrative Alert awake oriented x 3 no obvious distress no pallor no icterus no JVD s1s2 no murmurs lungs clear abdomen soft no organomegaly no edema no cyanosis Assessment & Plan Assessment/Plan (1) Anemia, unspecified: PLAN: Anemia upper GI bleed in the setting of severely elevated BUN/creatinine ratio with CKD and acute kidney injury. Patient undergoing upper endoscopy for evaluation of esophageal tract now that he is more stable from a mentation standpoint. He was explained alternatives, risk, benefits including understanding bleeding, infection, sepsis, perforation, need for emergent . He will have an ASA of 3. Charges/Coding Visit Charges Inpatient E&M: 63481 Subs Hosp L2
--- NOTE | 2022-07-19 15:02 | CASEMGMT ---
Social Work SW in to speak with pt. Discussed discharge plans. Pt declined new SNF list at this time. Pt requested SW leave as wanted to sleep. PLAN: Return to [facility], pending precert DIANA Brar
--- NOTE | 2022-07-19 16:00 | PN.HOSP_ITS ---
Subjective Subjective Doing well today, no issues overnight. Hemoglobin appears to be stable at 8.5, he did receive 1 unit of PRBCs on admission Objective Data Objective Data Vital Signs: Vital Signs Temp Pulse Resp BP Pulse Ox O2 Del Method O2 Flow Rate 98.0 F 109 H 18 123/76 H 99 Room Air 99 07/19/22 08:20 07/19/22 14:55 07/19/22 08:20 07/19/22 08:20 07/19/22 11:08 07/19/22 08:20 07/19/22 08:20 Oxygen Flow Rate (L/min) 99 Oxygen Delivery Method Room Air Weight: 167 lb 8.821 oz Body Mass Index (BMI) 23.6 Intake & Output: Intake and Output for Last 24 Hours 07/18/22 07/19/22 07/20/22 03:59 03:59 03:59 Intake Total 1920 / 1920 1450 / 1450 743 / 743 Output Total 1450 / 1450 2125 / 2125 950 / 950 Balance 470 / 470 -675 / -675 -207 / -207 Medical Nutrition Assessment Dietitian: Malnutrition Criteria Met Start: 07/16/22 15:15 Freq: Status: Active Protocol: Document 07/19/22 15:47 AG (Rec: 07/19/22 15:47 AG [id number]) Nutrition Malnutrition Evidence of Malnutrition Exists Yes Malnutrition (severe): Acute Illness/Injury Evidenced By Suboptimal Energy Intake ( Severe),Weight Loss (Severe), Physical Changes (Moderate) Clinical Problem Acute Disease or Injury Related Malnutrition Etiology severe, acute malnutrition related to inadequate energy intake d/t pain Signs/Symptoms as evidenced by unintentional wt loss of 12.2#/7% <1 week; estimated PO intake meeting < 50% of estimated energy needs >5 days; Moderate muscle wasting/fat loss evident per physical exam in orbital, temporal, clavicle, and acromion region. Status Active Problem Recommendation Dietitian Recommendations/Changes regular diet- okay for purees if pt requests; 120mL ensure plus high protein w/ medpass for additional calories/ protein if consumed. Lab / Micro Data Result Diagrams: 07/19/22 04:21 07/19/22 04:21 Labs: Laboratory Results - last 24 hr 07/17/22 05:05: Diff Path Review Reviewed 07/18/22 05:05: Diff Path Review Reviewed 07/18/22 17:02: POC Glucose 106 07/18/22 22:02: POC Glucose 105 07/19/22 04:21: WBC 11.4 H, RBC 3.45 L, Hgb 8.5 L, Hct 26.7 L, MCV 77.4 L, MCH 24.6 L, MCHC 31.8 L, RDW Std Deviation 60.5 H, RDW Coeff of Chidi 21.8 H, Plt Count 207, MPV 9.9, Neut % (Auto) Not Reportable, Absolute Neuts (auto) 8.6 H, Absolute Lymphs (auto) 68.16 H, Total Counted 100, Neutrophils % (Manual) 68, Band Neutrophils % 8 H, Lymphocytes % (Manual) 6 L, Monocytes % (Manual) 12 H, Metamyelocytes % 4 H, Myelocytes % 2 H, Diff Path Review Reviewed, Anisocytosis 2+, Microcytosis 1+ 07/19/22 04:21: Sodium 138, Potassium 3.5, Chloride 107, Carbon Dioxide 21.0, Anion Gap 10, BUN 49 H, Creatinine 1.66 H, Estim Creat Clear Calc 42.14, Est GFR (MDRD) Af Amer 53 L, Est GFR (MDRD) Non-Af 44 L, BUN/Creatinine Ratio 29.5 H, Glucose 117 H, Calcium 8.4 L 07/19/22 05:31: POC Glucose 115 H 07/19/22 11:31: POC Glucose 134 H Micro: Microbiology 07/16/22 09:26 Urine, Clean Catch Urine Culture - Final Mixed Gram Pos & Gram Neg Org 07/17/22 11:00 Stool Stool Occult Blood (DOUGLAS) - Final Occult Blood Positive Radiography Diagnostic Testing: Radiology Impression Brain MRI 07/19/22 05:55 IMPRESSION: 1. Involutional changes of the brain, as described above. 2. Stable benign 1.46 cm left occipital lobe meningioma. Electronically Signed: Ismael Johnson MD at 12:27 EDT , Physical Exam Narrative General: Alert, Oriented x3, Cooperative, No apparent distress HEENT: Atraumatic, PERRLA, EOMI, Normocephalic Oral: Moist Mucosa Neck: Supple, No JVD Lungs: Clear to auscultation, Normal air movement, No rhonchi, No wheeze, No rales Cardiovascular: Regular rate, Regular Rhythm, Normal S1, Normal S2, No murmurs Abdomen: Soft, Non Tender, Non-Distended, No Hepato-splenomegaly Extremities: No edema, Capillary Refill Less than 3 Seconds Skin: No rashes, No breakdown Musculoskeletal: No Tenderness to Palpation of Joints or Extremities Neurological: Cranial nerves II-XII grossly intact, Motor Exam 5/5 strength throughout, Sensory exam intact to light touch and pain Psych/Mental Status: Flat affect, Appropriate Assessment & Plan Assessment/Plan (1) Acute kidney injury: (2) Encephalopathy acute: PLAN: Plan This is a 75-year-old gentleman was admitted from [facility] for abnormal labs. 1. Acute kidney injury on CKD 3, unclear 3A or 3B: Patient baseline BUN/creatinine was 15/1.5 in November 2012. No labs until 07/09/22 when BUN/cr eatinine 49/2.44. Patient is admitted with 113/3.58. Patient is hyperchloremic non-anion gap metabolic acidosis. Bicarb 16, chloride 118. Started on IV fluid Ringer lactate. UA shows occult blood 250, protein 30 glucose 50 but negative RBC WBC. Bacteria 2+. Urine osmolality 397, protein creatinine ratio 2.185 g. CK is elevated, 417 not in the range of rhabdomyolysis. I discussed with neph rologist, Dr. Flannery and consulted him. No hyperkalemia. 07/17: Kidney ultrasound shows increased echogenicity of right kidney. Proteinuria 2185 mg/g of creatinine, nonnephrotic range probably diabetic nephropathy. Urine osmolarity 397 more than serum osmolality 321. Urine sodium 28, potassium 26. Urine culture shows mixed gram-positive gram-negative organisms suggestive of contamination. Overall improvement in BUN/creatinine. Liver ultrasound was heterogeneous without mass-effect or cirrhosis otherwise normal liver ultrasound. 07/18: Patient had 1600 urine output yesterday. BUN/creatinine improving. Patient moved bowel yesterday. 07/19: Appreciate nephrology's assistance, renal function has returned to baseline 2. Acute on chronic severe anemia mostly due to upper GI bleed: Hemoglobin dropped to 6.6 from 7.2. It was 7.4 on 07/09. Before that, hemoglobin 15.4 in November 2012. Stool for occult blood positive. Monitor PRBC transfusion. Protonix 40 mg IV twice daily.GI consulted. Patient undergoing 1 unit of PRBC transfusion. Repeat H&H posttransfusion. 07/18: Seen by GI. Plan for EGD when hemodynamically stable and mental function improves. Patient had 1 unit of PRBC transfusion. Posttransfusion hemoglobin 7.9 and then dropped to 7.5 today. IV iron: 50 mg ordered 07/19: Plan for EGD 3. Acute encephalopathy, exact etiology unclear suspect metabolic from uremia with incidental finding of brain mass/meningioma: I also think patient has baseline mental disorder/psychiatric diagnosis or personality disorder. Treat the underlying disorder. CT brain reported 1.59 x 1.05 x 1.43 cm hyperdense lesion in the posterior left occipital region along the falx. This may r epresent a meningioma. There is no associated edema mass effect or midline shift. This was not seen on the previous study of 2013. When patient is more stable we will do MRI brain . 07/18: Patient mental status better. He talks more quadrant. Acute encephalopathy resolved. MRI brain ordered tomorrow a.m. for them as described. 07/19: MRI with a stable benign meningioma, does appear encephalopathy has resolved 4. Left pathological fracture of right hip/proximal femur status postrepair, secondary malignant neoplasm of bone with possible primary prostate cancer: Details not available. Patient on enzalutamide 160 mg daily. Hold it for acute kidney injury. 5. Lumbar spine pain: Exact etiology unclear: Lumbar spine x-ray reported degenerative changes of moderate multilevel vertebral body osteophytosis and disc narrowing at multiple levels. Facet arthropathy. No acute change. Lumbar back pain is localized 6. Diabetes mellitus type 2: Accu-Chek insulin coverage Humalog sliding scale. Glucose is controlled 7. Other multiple comorbidities include Favian artery status post CABG, last PCI, hypertension, dyslipidemia, GERD: Home medication reconciliation DVT: SCDs Charges/Coding Visit Charges Inpatient E&M: 80814 Subs Hosp L2
--- NOTE | 2022-07-19 16:15 | NURSING ---
Pt bladder scanned per MD order - 268ml
[2022-07-19 16:56] LABS: Bedside Glucose 93 mg/dL (74-106)
[2022-07-19] MEDS: Ensure Plus High Protein 120 ML LIQUID PO (18:58)
[2022-07-19] MEDS: 0.9% Saline Lock 10 ML Syringe IV (21:10)
[2022-07-19] MEDS: Pramipexole Di-HCl 0.125 MG Tablet PO (21:12)
[2022-07-19 22:16] LABS: Bedside Glucose 141 mg/dL (74-106)
[2022-07-20] VITALS (12 sets, daily range): BP systolic 91–127; BP diastolic 61–76; PULSE 97–103; RESP 14–18; TEMP 36.3–37; O2SAT 91–100; BMI 24.3
[2022-07-20] MEDS: tiZANidine HCl 2 MG Tablet PO (03:15)
[2022-07-20] MEDS: oxyCODONE 5 MG Tablet PO (03:15)
[2022-07-20 04:58] LABS: Hematocrit 23.7 % (40-54); Hemoglobin 7.5 g/dL (13.0-16.5); Mean Corp Hgb Conc 31.6 g/dL (32-36); Mean Corpuscular Hgb 24.4 pg (27.0-32.0); Mean Corpuscular Volume 77.2 fL (80-94); Mean Platelet Vol. 10.1 fl (6.2-12.0); POSITIVE COUNT YES; POSITIVE MORPHOLOGY YES; Platelet Count 203 K/mm3 (150-450); RBC Distribution Width CV 21.5 % (11.6-14.6); RBC Distribution Width SD 59.7 fl (35.1-43.9); Red Blood Count 3.07 M/mm3 (4.6-6.2); White Blood Count 10.6 K/mm3 (4.4-11.0)
[2022-07-20 05:09] LABS: Differential Indicated MANUAL DIFF
[2022-07-20 05:31] LABS: Eosinophil 1 % (0-5); Lymphocyte 7 % (19-41); Metamyelocyte 4 % (0-1); Monocyte 8 % (0-10); Myelocyte 1 % (0-0); Neutrophil-Band 5 % (0-5); Neutrophil-Segmented 74 % (47-70); Total Cells Counted 100 (MANUAL DIFF)
[2022-07-20 05:32] LABS: Absolute Lymphocyte Count 0.74 X10^3/uL (0.83-4.51); Absolute Neutrophil Count 8.9 X10^3/uL (2.0-7.7); Lymphocyte # 0.74 X10^3/ul (0.83-4.51); Neutrophil # 8.86 X10^3/uL (2.7-7.7)
[2022-07-20 05:33] LABS: Platelet Estimate ADEQUATE (ADEQ)
[2022-07-20 05:34] LABS: Anisocytosis 2+; Microcytosis 1+
[2022-07-20 05:36] LABS: Anion Gap 11 (5-15); BUN 38 mg/dL (7-18); BUN/Creat Ratio 26.2 RATIO (10-20); Calcium,Total 8.1 mg/dL (8.5-10.1); Chloride 106 mmol/L (98-107); Creatinine, Serum 1.45 mg/dL (0.70-1.30); EST Glomerular Filtration Rate 51 mL/min (>60); Est Glom Filt Rate - Afr Amer 62 mL/min (>60); Estimated Creatinine Clearance 48.25 ml/min; Glucose 123 mg/dL (74-106); Potassium 3.3 mmol/L (3.5-5.1); Sodium Level 138 mmol/L (136-145)
[2022-07-20 05:37] LABS: Ovalocyte RARE
[2022-07-20 05:39] LABS: Polychromasia RARE
[2022-07-20 07:35] LABS: Bedside Glucose 120 mg/dL (74-106)
--- NOTE | 2022-07-20 09:40 | PN.HOSP_ITS ---
Subjective Subjective Doing well, no issues overnight. Still little bit pale and his hemoglobin dropped to 7.5. Somewhat of a tangential speech today Objective Data Objective Data Vital Signs: Vital Signs Temp Pulse Resp BP Pulse Ox O2 Del Method O2 Flow Rate 98.0 F 101 H 18 120/72 91 Room Air 99 07/20/22 06:00 07/20/22 07:00 07/20/22 06:00 07/20/22 06:00 07/20/22 06:00 07/20/22 06:00 07/19/22 08:20 Oxygen Flow Rate (L/min) 99 Oxygen Delivery Method Room Air Weight: 169 lb 8 oz Body Mass Index (BMI) 23.6 Intake & Output: Intake and Output for Last 24 Hours 07/19/22 07/20/22 07/21/22 03:59 03:59 03:59 Intake Total 1450 / 1450 2753 / 2753 240 / 240 Output Total 2125 / 2125 1850 / 1850 875 / 875 Balance -675 / -675 903 / 903 -635 / -635 Medical Nutrition Assessment Dietitian: Malnutrition Criteria Met Start: 07/16/22 15:15 Freq: Status: Active Protocol: Document 07/19/22 15:47 AG (Rec: 07/19/22 15:47 AG [id number]) Nutrition Malnutrition Evidence of Malnutrition Exists Yes Malnutrition (severe): Acute Illness/Injury Evidenced By Suboptimal Energy Intake ( Severe),Weight Loss (Severe), Physical Changes (Moderate) Clinical Problem Acute Disease or Injury Related Malnutrition Etiology severe, acute malnutrition related to inadequate energy intake d/t pain Signs/Symptoms as evidenced by unintentional wt loss of 12.2#/7% <1 week; estimated PO intake meeting < 50% of estimated energy needs >5 days; Moderate muscle wasting/fat loss evident per physical exam in orbital, temporal, clavicle, and acromion region. Status Active Problem Recommendation Dietitian Recommendations/Changes regular diet- okay for purees if pt requests; 120mL ensure plus high protein w/ medpass for additional calories/ protein if consumed. Lab / Micro Data Result Diagrams: 07/20/22 04:00 07/20/22 04:00 Labs: Laboratory Results - last 24 hr 07/17/22 05:05: Diff Path Review Reviewed 07/18/22 05:05: Diff Path Review Reviewed 07/19/22 04:21: Diff Path Review Reviewed 07/19/22 11:31: POC Glucose 134 H 07/19/22 16:34: POC Glucose 93 07/19/22 21:18: POC Glucose 141 H 07/20/22 04:00: WBC 10.6, RBC 3.07 L, Hgb 7.5 L, Hct 23.7 L, MCV 77.2 L, MCH 24.4 L, MCHC 31.6 L, RDW Std Deviation 59.7 H, RDW Coeff of Chidi 21.5 H, Plt Count 203, MPV 10.1, Neut % (Auto) Not Reportable, Absolute Neuts (auto) 8.9 H, Absolute Lymphs (auto) 0.74 L, Total Counted 100, Neutrophils % (Manual) 74 H, Band Neutrophils % 5, Lymphocytes % (Manual) 7 L, Monocytes % (Manual) 8, Eosinophils % (Manual) 1, Metamyelocytes % 4 H, Myelocytes % 1 H, Diff Path Review May foll, Platelet Estimate ADEQUATE, Polychromasia RARE, Anisocytosis 2+, Microcytosis 1+, Ovalocytes RARE 07/20/22 04:00: Sodium 138, Potassium 3.3 L, Chloride 106, Carbon Dioxide 21.0, Anion Gap 11, BUN 38 H, Creatinine 1.45 H, Estim Creat Clear Calc 48.25, Est GFR (MDRD) Af Amer 62, Est GFR (MDRD) Non-Af 51 L, BUN/Creatinine Ratio 26.2 H, Glucose 123 H, Calcium 8.1 L 07/20/22 06:57: POC Glucose 120 H Micro: Microbiology 07/16/22 09:26 Urine, Clean Catch Urine Culture - Final Mixed Gram Pos & Gram Neg Org 07/17/22 11:00 Stool Stool Occult Blood (DOUGLAS) - Final Occult Blood Positive Radiography Diagnostic Testing: Radiology Impression Brain MRI 07/19/22 05:55 IMPRESSION: 1. Involutional changes of the brain, as described above. 2. Stable benign 1.46 cm left occipital lobe meningioma. Electronically Signed: Ismael Johnson MD at 12:27 EDT Reading Location ID and State: [facility] / [place] , Service support , Physical Exam Narrative General: Alert, Oriented x3, Cooperative, No apparent distress HEENT: Atraumatic, PERRLA, EOMI, Normocephalic, pale Oral: Moist Mucosa Neck: Supple, No JVD Lungs: Clear to auscultation, Normal air movement, No rhonchi, No wheeze, No rales Cardiovascular: Regular rate, Regular Rhythm, Normal S1, Normal S2, No murmurs Abdomen: Soft, Non Tender, Non-Distended, No Hepato-splenomegaly Extremities: No edema, Capillary Refill Less than 3 Seconds Skin: No rashes, No breakdown Musculoskeletal: No Tenderness to Palpation of Joints or Extremities Neurological: Cranial nerves II-XII grossly intact, Motor Exam 5/5 strength t hroughout, Sensory exam intact to light touch and pain Psych/Mental Status: Flat affect, Appropriate, tangential speech Assessment & Plan Assessment/Plan (1) Acute kidney injury: (2) Encephalopathy acute: PLAN: Plan This is a 75-year-old gentleman [facility] for abnormal labs. 1. Acute kidney injury on CKD 3, unclear 3A or 3B: Patient baseline BUN/creatinine was 15/1.5 in November 2012. No labs until 07/09/22 when BUN/creatinine 49/2.44. Patient is admitted with 113/3.58. Patient is hyperchloremic non-anion gap metabolic acidosis. Bicarb 16, chloride 118. Started on IV fluid Ringer lactate. UA shows occult blood 250, protein 30 glucose 50 but negative RBC WBC. Bacteria 2+. Urine osmolality 397, protein creatinine ratio 2.185 g. CK is elevated, 417 not in the range of rhabdomyolysis. I discussed with cardiopulmonary specialist, Dr. Flannery and consulted him. No hyperkalemia. 07/17: Kidney ultrasound shows increased echogenicity of right kidney. Proteinuria 2185 mg/g of creatinine, nonnephrotic range probably diabetic nephropathy. Urine osmolarity 397 more than serum osmolality 321. Urine sodium 28, potassium 26. Urine culture shows mixed gram-positive gram-negative organisms suggestive of contamination. Overall improvement in BUN/creatinine. Liver ultrasound was heterogeneous without mass-effect or cirrhosis otherwise normal liver ultrasound. 07/18: Patient had 1600 urine output yesterday. BUN/creatinine improving. Patient moved bowel yesterday. 07/19: Appreciate nephrology's assistance, renal function has returned to baseline 2. Acute on chronic severe anemia mostly due to upper GI bleed: Hemoglobin dropped to 6.6 from 7.2. It was 7.4 on 07/09. Before that, hemoglobin 15.4 in November 2012. Stool for occult blood positive. Monitor PRBC transfusion. Protonix 40 mg IV twice daily.GI consulted. Patient undergoing 1 unit of PRBC transfusion. Repeat H&H posttransfusion. 07/18: Seen by GI. Plan for EGD when hemodynamically stable and mental function improves. Patient had 1 unit of PRBC transfusion. Posttransfusion hemoglobin 7.9 and then dropped to 7.5 today. IV iron: 50 mg ordered 07/19: Plan for EGD 07/20: EGD will be done this afternoon we will recheck hemoglobin in the morning and if necessary transfuse another unit 3. Acute encephalopathy, exact etiology unclear suspect metabolic from uremia with incidental finding of brain mass/meningioma: I also think patient has baseline mental disorder/psychiatric diagnosis or personality disorder. Treat the underlying disorder. CT brain reported 1.59 x 1.05 x 1.43 cm hyperdense lesion in the posterior left occipital region along the falx. This may represent a meningioma. There is no associated edema mass effect or midline shift. This was not seen on the previous study of 2013. When patient is more stable we will do MRI brain . 07/18: Patient mental status better. He talks more quadrant. Acute encephalopathy resolved. MRI brain ordered tomorrow a.m. for them as described. 07/19: MRI with a stable benign meningioma, does appear encephalopathy has resolved 4. Left pathological fracture of right hip/proximal femur status postrepair, secondary malignant neoplasm of bone with possible primary prostate cancer: Details not available. Patient on enzalutamide 160 mg daily. Hold it for acute kidney injury. 5. Lumbar spine pain: Exact etiology unclear: Lumbar spine x-ray reported degenerative changes of moderate multilevel vertebral body osteophytosis and disc narrowing at multiple levels. Facet arthropathy. No acute change. Lumbar back pain is localized 6. Diabetes mellitus type 2: Accu-Chek insulin coverage Humalog sliding scale. Glucose is controlled 7. Other multiple comorbidities include CAD status post CABG, last PCI, hypertension, dyslipidemia, GERD: Home medication reconciliation DVT: SCDs Charges/Coding Visit Charges Inpatient E&M: 11872 Subs Hosp L2
--- NOTE | 2022-07-20 09:47 | CASEMGMT ---
Addendum entered by Marsha Conley 07/20/22 10:09: JANNIE called pt family Perla and Aquiles Pacheco to see if family could assist pt with making new choice for SNF. Pt family agreeable to review list with SW but stated they could not come in to talk with pt at this time to help him make choice. Family stated [facility] or [facility] would be best choices for pt. SW will follow up with pt to share information from family and determine if this will help pt make choice. SW in to speak with pt and inform pt needs to provide SNF choice mariel as insurance precert has already been started. Pt still struggling to provide option. SW enforced choice being provided and shared family suggested [facility]. Pt considered and agreeable to this choice. Pt adamant he will not return to [facility]. SW asked discharge seismic survey assistant, Megan Fagan, to send referral to [facility]. PLAN: [facility], pending acceptance and precert [facility] Original Note: Social Work SW in to meet with pt again today to follow up on choice to return to [facility] or go to new SNF. PT told nurse overnight would not be returning to [facility] as they broke my back. SW discussed options with pt and he again declined new SNF list. SW asked pt what plan is upon discharge. Pt stated You just want to get rid of me. SW reassured pt this is not the case and SW only wants to assist pt in going somewhere upon discharge where pt feels safe and will receive the care he expects. A printed list of SNF providers including quality and resources use date that is consistent with patient's preferred geographical region, medical needs, and insurances network were provided via the [employer] Guide Link.?SW asked pt to review the list and provide new choice. Pt slow to answer questions and did not appear to comprehend discussion. Pt then asked for urinal and continued to talk as attempted to relieve self. SW told pt to review list and SW would come back later this day to discuss options for new SNF. JANNIE attempted to call contact numbers listed for pt. Same number is listed for both next of kin and person to notify. The number is not working. PLAN: TBD SNF [facility]
[2022-07-20] MEDS: 0.9% Saline Lock 10 ML Syringe IV ×2 (10:10→21:10)
[2022-07-20] MEDS: oxyCODONE CR 15 MG Tablet PO ×2 (10:20→21:13)
[2022-07-20] MEDS: Metoprolol(XL)Succ 25 MG Tablet PO (10:20)
--- NOTE | 2022-07-20 10:46 | CASEMGMT ---
Discharge Learning Strategist Megan zapata/chelsey campbell sent a referral to patient choice of [facility]. Per JANNIE Larson, patient doesn't want to return to [facility]. Will follow up. Plan: [facility], Waiting on Acceptance Megan Fagan Discharge Learning Strategist
[2022-07-20 11:50] LABS: Bedside Glucose 115 mg/dL (74-106)
[2022-07-20 13:05] LABS: Pathologist Review Reviewed
--- NOTE | 2022-07-20 13:09 | CASEMGMT ---
Discharge Bulb Sorter This copywriter went to patient bedside. This copywriter told patient [facility] is unable to accept. Patient stated all other nursing homes are horrible he will go back to [facility]. [place] called and pre-cert has been obtained. Pre-cert is good for 48 hours so thru 07/22/2022. Per Marsha patient is scheduled for a EGD today. Patient can go to [facility] when medically ready. Plan: [facility], When medically ready. Megan Fagan Discharge Bulb Sorter
[2022-07-20 15:56] LABS: Bedside Glucose 103 mg/dL (74-106)
--- NOTE | 2022-07-20 16:30 | EGD_PTH ---
PATIENT: ANGELES PHELPS LOC: MS3 U#:[id number] AGE/SX: 72/M ROOM: [facility] RE07/16/[address]: Dr. Chris Hirsch MD : 1950 BED: 1 DIS: 07/21/2022 SPEC #: [id number] RECD: 07/20/22 19:03 STATUS: SERGE JAYTerry #: [id number] ISABEL: 07/20/22 16:[address]: Damien Marquez DEPT: SURGICAL PATHOLOGY RECD BY: Marco Santamaria ENTERED: 07/21/22 08:09 SP TYPE: EGD BIOPSY OTHR DR: MD Dr. Milena Soria MD Dr. Prakash Chand, MD Dr. Victor Velasquez, MD Tissues: Gastric mucous membrane Procedures: Surgery Specimen Level IV HEADER OPERATION: EGD (MAC) PRE-OP DIAGNOSIS: Anemia TISSUE SUBMITTED: Gastric body biopsy MICROSCOPIC DIAGNOSIS Gastric body, biopsy: Chronic gastritis. AM:mehdi 07/22/2022 COMMENT The results of immunohistochemistry for Helicobacter pylori will be reported separately ([id number]). MICROSCOPIC DESCRIPTION Slides are reviewed. GROSS DESCRIPTION Received in fixative is one container labeled with the patient's name and designated biopsy gastric body. The specimen consists of two irregular fragments of light bridges soft tissue that in aggregate measure 0.6 x 0.3 x 0.1 cm. The specimen is totally submitted in one cassette. / SJ:mehdi 07/21/2022 TC:3 CPT: 17092
--- NOTE | 2022-07-20 16:30 | IMM_PTH ---
PATIENT: ANGELES PHELPS LOC: MS3 U#:[id number] AGE/SX: 72/M ROOM: [facility] [place] RE07/16/[address]: Dr. Chris Hirsch MD : 1950 BED: 1 DIS: 07/21/2022 SPEC #: [id number] RECD: 07/21/22 09:11 STATUS: SERGE RETerry #: [id number] ISABEL: 07/20/22 16:[address]: Damien Marquez DEPT: IMMUNOHISTOCHEMISTRY RECD BY: Heidy Shannon ENTERED: 07/21/22 09:12 SP TYPE: IMMUNO OTHR DR: MD Dr. Milena Soria MD Dr. Prakash Chand, MD Dr. Victor Velasquez, MD Tissues: Stomach, NOS Procedures: H Pylori (initial) PHYSICIAN & INSTITUTION [place] [id number] SPECIMEN INFORMATION: Tissue Source: Gastric body biopsy Clinical Info: Suzan Specimen Number: [id number] CPT code: 71386 METHODOLOGY: Deparaffinized sections of prefer/formalin-fixed tissue or PAP/DQ stained slides are incubated with monoclonal/polyclonal antibodies/oligonucleotide probes. Localization is made via biotin free immunoperoxidase method. Appropriate controls are performed and reacted as expected. Results on target cell population are indicated in the following table: RESULTS: ANTIBODY / CLONE RESULT H Pylori (polyclonal) negative These tests were developed and their performance characteristics determined by [facility]. They may not have been cleared or approved by the U.S. Food and Drug Administration. The FDA has determined that such clearance or approval is not necessary. The above immunohistochemical/dualISH markers are ordered and reviewed by the Pathologist. INTERPRETATION: Gastric body, biopsy: Negative for Helicobacter pylori organisms. AM:mehdi 07/23/2022
--- NOTE | 2022-07-20 17:30 | OP.EGD_ITS ---
Patient Name: Anson Brown Procedure Date: 07/20/2022 5:06 PM Date of : 1950 Age: 72 Procedure: Upper GI endoscopy Indications: Iron deficiency anemia Providers: Damien Marquez DO Medicines: Monitored Anesthesia Care Patient Profile: This is a 72 year old male. Refer to note in patient chart for documentation of history and physical. Patient has symptoms of acute epigastric abdominal pain. Complications: No immediate complications. Procedure: Pre-Anesthesia Assessment: - Prior to the procedure, a History and Physical was performed, and patient medications and allergies were reviewed. The risks and benefits of the procedure and the sedation options and risks were discussed with the patient. All questions were answered and informed consent was obtained. Patient identification and proposed procedure were verified by the physician in the pre-procedure area. Mental Status Examination: alert and oriented. Airway Examination: normal oropharyngeal airway and neck mobility. Respiratory Examination: clear to auscultation. CV Examination: normal. Prophylactic Antibiotics: The patient does not require prophylactic antibiotics. Prior Anticoagulants: The patient has taken no previous anticoagulant or antiplatelet agents. ASA Grade Assessment: II - A patient with mild systemic disease. After reviewing the risks and benefits, the patient was deemed in satisfactory condition to undergo the procedure. The anesthesia plan was to use monitored anesthesia care (MAC). Immediately prior to administration of medications, the patient was re-assessed for adequacy to receive sedatives. The heart rate, respiratory rate, oxygen saturations, blood pressure, adequacy of pulmonary ventilation, and response to care were monitored throughout the procedure. The physical status of the patient was re-assessed after the procedure. After obtaining informed consent, the endoscope was passed under direct vision. Throughout the procedure, the patient's blood pressure, pulse, and oxygen saturations were monitored continuously. The gastroscope was introduced through the mouth, and advanced to the second part of duodenum. Scope In: 5:18:44 PM Scope Out: 5:21:57 PM Total Procedure Duration Time 0 hours 3 minutes 13 seconds Findings: The examined esophagus was normal. Severe portal hypertensive gastropathy was found in the stomach. Biopsies were taken with a cold forceps for histology. Verification of patient identification for the specimen was done. Estimated blood loss was minimal. Diffuse severe inflammation with hemorrhage characterized by erosions, erythema and friability was found in the stomach. Biopsies were taken with a cold forceps for histology. The second portion of the duodenum was normal. Impression: - Normal esophagus. - Portal hypertensive gastropathy. Biopsied. - Chronic gastritis with hemorrhage. Biopsied. - Normal second portion of the duodenum. Recommendation: - Await pathology results. - Repeat upper endoscopy in 2 months for surveillance based on pathology results. - Continue present medications. Procedure Code(s): --- Professional --- 16721, Esophagogastroduodenoscopy, flexible, transoral; with biopsy, single or multiple CPT copyright 2017 [employer]. All rights reserved. The codes documented in this report are preliminary and upon speedboat operator review may be revised to meet current compliance requirements. Damien Marquez DO 07/20/2022 5:30:02 PM This report has been signed electronically. Number of Addenda: 0 Note Initiated On: 07/20/2022 5:06 PM
--- NOTE | 2022-07-20 17:32 | OP.CCLET_ITS ---
07/20/2022 Tan Mercado [id number] [place] [address] Re : Upper GI endoscopy procedure for Anson Brown Dear Dr. Mercado This procedure was performed on Wednesday, July 20, 2022. My impressions and recommendations are as follows: Impressions : - Normal esophagus. - Portal hypertensive gastropathy. Biopsied. - Chronic gastritis with hemorrhage. Biopsied. - Normal second portion of the duodenum. Recommendations : - Await pathology results. - Repeat upper endoscopy in 2 months for surveillance based on pathology results. - Continue present medications. My findings are described in the full procedure note, which is enclosed. If I can be of further assistance, please feel free to contact me at . Sincerely, Damien Marquez, 07/20/2022 5:30:02 PM This report has been signed electronically.
[2022-07-20] MEDS: Tamsulosin HCl 0.4 MG Capsule PO (18:12)
[2022-07-20] MEDS: Multivitamins,Therapeutic Tablet 1 TABLET PO (18:13)
[2022-07-20] MEDS: Cholecalciferol (VIT D3) 25 MCG TABLET (1,000 UNITS) 100 MCG PO (18:14)
[2022-07-20] MEDS: Sucralfate 1 GM Tablet PO (18:54)
[2022-07-20] MEDS: Doxycycline 100 MG CAPSULE PO (21:13)
[2022-07-20] MEDS: metroNIDAZOLE 500 MG Tablet PO (21:13)
[2022-07-20] MEDS: AMOXICILLIN 500 MG CAPSULE PO (21:13)
[2022-07-20] MEDS: Pramipexole Di-HCl 0.125 MG Tablet PO (21:13)
[2022-07-20 22:56] LABS: Bedside Glucose 151 mg/dL (74-106)
[2022-07-21] VITALS (9 sets, daily range): BP systolic 102–113; BP diastolic 69–75; PULSE 87–104; RESP 17–18; TEMP 36.4–36.8; O2SAT 91–98
[2022-07-21] MEDS: tiZANidine HCl 2 MG Tablet PO (01:07)
[2022-07-21] MEDS: Acetaminophen 325 MG Tablet 650 MG PO ×2 (01:07→12:12)
[2022-07-21] MEDS: oxyCODONE 5 MG Tablet PO ×2 (01:07→12:12)
[2022-07-21 05:48] LABS: Hematocrit 24.1 % (40-54); Hemoglobin 7.5 g/dL (13.0-16.5); Mean Corp Hgb Conc 31.1 g/dL (32-36); Mean Corpuscular Hgb 24.2 pg (27.0-32.0); Mean Corpuscular Volume 77.7 fL (80-94); Mean Platelet Vol. 9.7 fl (6.2-12.0); POSITIVE COUNT YES; POSITIVE MORPHOLOGY YES; Platelet Count 181 K/mm3 (150-450); RBC Distribution Width CV 21.4 % (11.6-14.6); RBC Distribution Width SD 59.6 fl (35.1-43.9); White Blood Count 10.1 K/mm3 (4.4-11.0)
[2022-07-21 06:00] LABS: Differential Indicated MANUAL DIFF
[2022-07-21 06:20] LABS: Anion Gap 8 (5-15); BUN 31 mg/dL (7-18); BUN/Creat Ratio 25.2 RATIO (10-20); Calcium,Total 7.8 mg/dL (8.5-10.1); Chloride 108 mmol/L (98-107); Creatinine, Serum 1.23 mg/dL (0.70-1.30); EST Glomerular Filtration Rate 62 mL/min (>60); Est Glom Filt Rate - Afr Amer 75 mL/min (>60); Estimated Creatinine Clearance 56.88 ml/min; Glucose 121 mg/dL (74-106); Potassium 3.3 mmol/L (3.5-5.1); Sodium Level 140 mmol/L (136-145)
[2022-07-21 06:21] LABS: Total Cells Counted 100 (MANUAL DIFF)
[2022-07-21 06:23] LABS: Neutrophil-Band 3 % (0-5); Neutrophil-Segmented 81 % (47-70)
[2022-07-21 06:24] LABS: Anisocytosis 1+; Lymphocyte 5 % (19-41); Metamyelocyte 3 % (0-1); Microcytosis 1+; Monocyte 8 % (0-10); Ovalocyte RARE; Platelet Estimate ADEQUATE (ADEQ)
[2022-07-21 06:25] LABS: Absolute Lymphocyte Count 0.51 X10^3/uL (0.83-4.51); Absolute Neutrophil Count 8.5 X10^3/uL (2.0-7.7); Lymphocyte # 0.51 X10^3/ul (0.83-4.51); Neutrophil # 8.51 X10^3/uL (2.7-7.7)
[2022-07-21] MEDS: Sucralfate 1 GM Tablet PO (06:26)
[2022-07-21 06:50] LABS: Bedside Glucose 111 mg/dL (74-106)
--- NOTE | 2022-07-21 08:00 | PCM.PROGNOTE ---
Subjective Subjective Patient is doing very well after undergoing an EGD yesterday. Objective Data Objective Data Vital Signs: Vital Signs Temp Pulse Resp BP Pulse Ox O2 Del Method O2 Flow Rate 97.6 F L 97 17 113/75 91 Room Air 99 07/21/22 09:30 07/21/22 11:11 07/21/22 09:30 07/21/22 09:30 07/21/22 09:41 07/21/22 09:30 07/19/22 08:20 Oxygen Flow Rate (L/min) 99 Oxygen Delivery Method Room Air Weight: 169 lb 8 oz Body Mass Index (BMI) 24.3 Intake & Output: Intake and Output for Last 24 Hours 07/19/22 07/20/22 07/21/22 23:59 23:59 23:59 Intake Total 2753 / 2753 920 / 1160 590 / 590 Output Total 2350 / 2350 1700 / 1900 800 / 800 Balance 403 / 403 -780 / -740 -210 / -210 Lab / Micro Data Result Diagrams: 07/21/22 05:15 07/21/22 05:15 Labs: Laboratory Results - last 24 hr 07/20/22 21:21: POC Glucose 151 H 07/21/22 05:15: WBC 10.1, RBC 3.10 L, Hgb 7.5 L, Hct 24.1 L, MCV 77.7 L, MCH 24.2 L, MCHC 31.1 L, RDW Std Deviation 59.6 H, RDW Coeff of Chidi 21.4 H, Plt Count 181, MPV 9.7, Neut % (Auto) Not Reportable, Absolute Neuts (auto) 8.5 H, Absolute Lymphs (auto) 0.51 L, Total Counted 100, Neutrophils % (Manual) 81 H, Band Neutrophils % 3, Lymphocytes % (Manual) 5 L, Monocytes % (Manual) 8, Metamyelocytes % 3 H, Diff Path Review February, Platelet Estimate ADEQUATE, Anisocytosis 1+, Microcytosis 1+, Ovalocytes RARE 07/21/22 05:15: Sodium 140, Potassium 3.3 L, Chloride 108 H, Carbon Dioxide 24.0, Anion Gap 8, BUN 31 H, Creatinine 1.23, Estim Creat Clear Calc 56.88, Est GFR (MDRD) Af Amer 75, Est GFR (MDRD) Non-Af 62, BUN/Creatinine Ratio 25.2 H, Glucose 121 H, Calcium 7.8 L 07/21/22 06:24: POC Glucose 111 H 07/21/22 12:01: POC Glucose 154 H Micro: Microbiology 07/21/22 12:00 Nasal Secretion SARS-CoV-2 Antigen (Rapid) - Final 07/16/22 09:26 Urine, Clean Catch Urine Culture - Final Mixed Gram Pos & Gram Neg Org 07/17/22 11:00 Stool Stool Occult Blood (DOUGLAS) - Final Occult Blood Positive Physical Exam Narrative General: Alert, Oriented x3, Cooperative, No apparent distress HEENT: Atraumatic, PERRLA, EOMI, Normocephalic, pale Oral: Moist Mucosa Neck: Supple, No JVD Lungs: Clear to auscultation, Normal air movement, No rhonchi, No wheeze, No rales Cardiovascular: Regular rate, Regular Rhythm, Normal S1, Normal S2, No murmurs Abdomen: Soft, Non Tender, Non-Distended, No Hepato-splenomegaly Extremities: No edema, Capillary Refill Less than 3 Seconds Skin: No rashes, No breakdown Musculoskeletal: No Tenderness to Palpation of Joints or Extremities Neurological: Cranial nerves II-XII grossly intact, Motor Exam 5/5 strength throughout, Sensory exam intact to light touch and pain Psych/Mental Status: Flat affect, Appropriate, tangential speech Assessment & Plan Assessment/Plan (1) Anemia, unspecified: PLAN: He was discovered to have diffuse hemorrhagic gastritis with gastropathy secondary to age pylori. He will be on quadruple therapy with Pepto-Bismol, amoxicillin, PPI, Flagyl and doxycycline therapy for approximately 10 to 14 days. He can follow-up in the clinic in approximately 3 months. Charges/Coding Visit Charges Inpatient E&M: 92193 Subs Hosp L2
[2022-07-21] MEDS: Doxycycline 100 MG CAPSULE PO (09:42)
[2022-07-21] MEDS: oxyCODONE CR 15 MG Tablet PO (09:42)
[2022-07-21] MEDS: Metoprolol(XL)Succ 25 MG Tablet PO (09:42)
[2022-07-21] MEDS: Tamsulosin HCl 0.4 MG Capsule PO (09:42)
[2022-07-21] MEDS: AMOXICILLIN 500 MG CAPSULE PO (09:42)
[2022-07-21] MEDS: metroNIDAZOLE 500 MG Tablet PO (09:42)
[2022-07-21] MEDS: Ensure Plus High Protein 120 ML LIQUID PO (09:43)
[2022-07-21] MEDS: Cholecalciferol (VIT D3) 25 MCG TABLET (1,000 UNITS) 100 MCG PO (09:43)
[2022-07-21] MEDS: 0.9% Saline Lock 10 ML Syringe IV (09:43)
--- NOTE | 2022-07-21 09:47 | TREXTCAR_ITS ---
Diet Diet Order/Speech Therapy: 07/20/22 17:30 Diet: Regular - General Is pt able to select menu?: No Routine Orders/Code Status Routine Lab Work: CBC and BMP Code Status: Full Code Wound(s) right hip: Wound Type: Surgical Incision Therapies Physical Therapy: Eval and Treat Occupational Therapy: Eval and Treat Problem/Diagnosis (1) Acute kidney injury: Status: Acute Code(s): N17.9 - Acute kidney failure, unspecified (2) Encephalopathy acute: Status: Acute Code(s): G93.40 - Encephalopathy, unspecified Plan This is a 75-year-old gentleman was admitted from residential for abnormal labs. 1. Acute kidney injury on CKD 3, unclear 3A or 3B: Patient baseline BUN/creatinine was 15/1.5 in November 2012. No labs until 07/09/22 when BUN/creatinine 49/2.44. Patient is admitted with 113/3.58. Patient is hyperchloremic non-anion gap metabolic acidosis. Bicarb 16, chloride 118. Started on IV fluid Ringer lactate. UA shows occult blood 250, protein 30 glucose 50 but negative RBC WBC. Bacteria 2+. Urine osmolality 397, protein creatinine ratio 2.185 g. CK is elevated, 417 not in the range of rhabdomyolysis. I discussed with software developer mid level, Dr. Flannery and consulted him. No hyperkalemia. 07/17: Kidney ultrasound shows increased echogenicity of right kidney. Proteinuria 2185 mg/g of creatinine, nonnephrotic range probably diabetic nephropathy. Urine osmolarity 397 more than serum osmolality 321. Urine sodium 28, potassium 26. Urine culture shows mixed gram-positive gram-negative organisms suggestive of contamination. Overall improvement in BUN/creatinine. Liver ultrasound was heterogeneous without mass-effect or cirrhosis otherwise normal liver ultrasound. 07/18: Patient had 1600 urine output yesterday. BUN/creatinine improving. Patient moved bowel yesterday. 07/19: Appreciate nephrology's assistance, renal function has returned to baseline 2. Acute on chronic severe anemia mostly due to upper GI bleed: Hemoglobin dropped to 6.6 from 7.2. It was 7.4 on 07/09. Before that, hemoglobin 15.4 in November 2012. Stool for occult blood positive. Monitor PRBC transfusion. Protonix 40 mg IV twice daily.GI consulted. Patient undergoing 1 unit of PRBC transfusion. Repeat H&H posttransfusion. 07/18: Seen by GI. Plan for EGD when hemodynamically stable and mental function improves. Patient had 1 unit of PRBC transfusion. Posttransfusion hemoglobin 7.9 and then dropped to 7.5 today. IV iron: 50 mg ordered 07/19: Plan for EGD 07/20: EGD will be done this afternoon we will recheck hemoglobin in the morning and if necessary transfuse another unit 3. Acute encephalopathy, exact etiology unclear suspect metabolic from uremia with incidental finding of brain mass/meningioma: I also think patient has baseline mental disorder/psychiatric diagnosis or personality disorder. Treat the underlying disorder. CT brain reported 1.59 x 1.05 x 1.43 cm hyperdense lesion in the posterior left occipital region along the falx. This may represent a meningioma. There is no associated edema mass effect or midline shift. This was not seen on the previous study of 2013. When patient is more stable we will do MRI brain . 07/18: Patient mental status better. He talks more quadrant. Acute encephalopathy resolved. MRI brain ordered tomorrow a.m. for them as described. 07/19: MRI with a stable benign meningioma, does appear encephalopathy has resolved 4. Left pathological fracture of right hip/proximal femur status postrepair, secondary malignant neoplasm of bone with possible primary prostate cancer: Details not available. Patient on enzalutamide 160 mg daily. Hold it for acute kidney injury. 5. Lumbar spine pain: Exact etiology unclear: Lumbar spine x-ray reported degenerative changes of moderate multilevel vertebral body osteophytosis and disc narrowing at multiple levels. Facet arthropathy. No acute change. Lumbar back pain is localized 6. Diabetes mellitus type 2: Accu-Chek insulin coverage Humalog sliding scale. Glucose is controlled 7. Other multiple comorbidities include CAD status post CABG, last PCI, hypertension, dyslipidemia, GERD: Home medication reconciliation DVT: SCDs Allergies/Procedures Done in Hospital Allergies No Known Allergies Allergy (Verified 07/16/22 09:23) Procedures: EGD Type of Care/Length of Stay Estimated LOS: Convalescent Care Less Than 30 days Type of Care Needed: Skilled Rehab Potential: Good Prognosis: Good Additional Orders/Day of Discharge Day of Discharge: 07/21/22 Dietary and Speech Recommendations Dietitian Recommendations/Changes: regular diet- okay for purees if pt requests; 120mL ensure plus high protein w/ medpass for additional calories/protein if consumed. Discharge Plan Admission Admit Date/Time: 07/16/22 11:04 Attending Provider: Chris Hirsch Primary Care Provider: Tan Mercado Consulting Providers: Milena Goodwin ; Cruz Noonan Discharge Orders/Prescriptions Prescriptions: New amoxicillin 500 mg Capsule 500 mg PO Q12 10 Days Qty: 20 0RF metronidazole 500 mg Tablet 500 mg PO BID 10 Days Qty: 20 0RF doxycycline monohydrate 100 mg Capsule 100 mg PO BID 10 Days Qty: 20 0RF ferrous sulfate 325 mg (65 mg iron) tablet 325 mg PO BID Qty: 1 0RF ascorbic acid (vitamin C) [Vitamin C] 500 mg capsule, extended release 500 mg PO Q12H Qty: 1 0RF bismuth subsalicylate [Pepto-Bismol] 262 mg/15 mL suspension 524 mg PO .QID 10 Days Qty: 1200 0RF Continued multivitamin Tablet 1 tab PO DAILY oxycodone 15 mg Tablet 15 mg PO BID PRN (Reason: Pain) tamsulosin 0.4 mg Capsule 0.4 mg PO DAILY ropinirole 0.25 mg Tablet 0.25 mg PO QHS Rx Instructions: administer 1-3 hours before bedtime metformin 1,000 mg Tablet 1,000 mg PO BID oxycodone 5 mg Tablet 2.5 mg PO Q4H PRN (Reason: Pain) ezetimibe 10 mg Tablet 10 mg PO DAILY rosuvastatin 40 mg Tablet 40 mg PO DAILY cholecalciferol (vitamin D3) 25 mcg (1,000 unit) Tablet 25 mcg PO DAILY enzalutamide 40 mg Capsule 160 mg PO DAILY metoprolol succinate 25 mg Capsule,Sprinkle,Er 24hr 25 mg PO DAILY Changed pantoprazole [address] For Susp In Packet 40 mg PO BIDCM Qty: 1 0RF Held aspirin 81 mg Tablet 81 mg PO DAILY Hold Instructions: Resume on 07/27/22. Discontinued enoxaparin 40 mg/0.4 mL Syringe 40 mg SUBCUT DAILY Referrals / Follow Up: Tan Mercado MD [Primary Care Provider] - Disposition Disposition (needs filled in before D/C Order can be placed): [facility]irement Facility
--- NOTE | 2022-07-21 11:06 | PHA.DC.MR ---
Pharmacy Service has performed discharge medication reconciliation for this patient. The patient's discharge medication list was reviewed for discrepancies and discrepancies were resolved. Home Medications aspirin 81 mg tablet 81 mg PO DAILY 07/16/22 cholecalciferol (vitamin D3) 25 mcg (1,000 unit) tablet 25 mcg PO DAILY 07/16/22 enzalutamide 40 mg capsule 160 mg PO DAILY 07/16/22 ezetimibe 10 mg tablet 10 mg PO DAILY 07/16/22 metformin 1,000 mg tablet 1,000 mg PO BID 07/16/22 metoprolol succinate 25 mg capsule sprinkle, ext. release 24 hr 25 mg PO DAILY 07/16/22 multivitamin 1 tab PO DAILY 07/16/22 oxycodone 15 mg tablet 15 mg PO BID PRN Pain 07/16/22 oxycodone 5 mg tablet 2.5 mg PO Q4H PRN Pain 07/16/22 ropinirole 0.25 mg tablet 0.25 mg PO QHS 07/16/22 rosuvastatin 40 mg tablet 40 mg PO DAILY 07/16/22 tamsulosin 0.4 mg capsule 0.4 mg PO DAILY 07/16/22 amoxicillin 500 mg capsule 500 mg PO Q12 10 days #20 caps 07/21/22 ascorbic acid (vitamin C) 500 mg capsule,extended release (Vitamin C) 500 mg PO Q12H #1 cap 07/21/22 bismuth subsalicylate 262 mg/15 mL oral suspension (Pepto-Bismol) 524 mg (30 mL) PO .QID 10 days #1,200 mL 07/21/22 doxycycline monohydrate 100 mg capsule 100 mg PO BID 10 days #20 caps 07/21/22 ferrous sulfate 325 mg (65 mg iron) tablet 325 mg PO BID #1 TAB 07/21/22 metronidazole 500 mg tablet 500 mg PO BID 10 days #20 tabs 07/21/22 pantoprazole 40 mg granules delayed-release for susp in packet 40 mg PO BIDCM #1 ea 07/21/22
[2022-07-21] MEDS: Insulin Lispro 100 UNIT/ML INSULN.PEN SC (12:03)
--- NOTE | 2022-07-21 12:21 | CASEMGMT ---
Social Work SW in to inform pt of transfer/discharge today. Pt voiced understanding. JANNIE set up cot transportation via [facility] for 2:00pm. JANNIE faxed discharge orders to [facility] via [employer]. JANNIE called [place] at [facility] to confirm no [facility] 7000 was needed as pt came from [facility] and is returning. [place] confirmed 7000 is not needed. JANNIE called pt family to inform of transfer. Left message with family. JANNIE placed copies of d/c orders on pt chart and sent originals in envelope to go with pt. Disposition: [facility] for skilled convalescent level of care DIANA Brar
[2022-07-21 12:40] LABS: Bedside Glucose 154 mg/dL (74-106)
--- NOTE | 2022-07-21 12:50 | DS.PCM_ITS ---
Providers Date of Admission: 07/16/22 Primary Care Physician: Dr. Tan Mercado MD Consultations 07/16/22 13:02 Consult: Nephrology Routine Consulting Provider: Milena Goodwin Reason for Consult: YOUSUF ON CKD EMERGENT Consult: No Notified: Yes Date Notified: 07/16/22 Time Notified: 11:00 Method of Notification: Verbal 07/17/22 12:06 Consult: Gastroenterology Routine Consulting Provider: [facility] Reason for Consult: Upper GI Bleed? FOBT pos, Hb 6.6 EMERGENT Consult: No Notified: Yes Date Notified: 07/17/22 Time Notified: 12:06 Method of Notification: Text Reason For Visit: YOUSUF ON CKD Diagnosis Discharge Diagnosis (1) Acute kidney injury: Status: Acute Code(s): N17.9 - Acute kidney failure, unspecified (2) Encephalopathy acute: Status: Acute Code(s): G93.40 - Encephalopathy, unspecified Plan This is a 75-year-old gentleman was admitted from detention for abnormal labs. 1. Acute kidney injury on CKD 3, unclear 3A or 3B: Patient baseline BUN/creatinine was 15/1.5 in November 2012. No labs until 07/09/22 when BUN/creatinine 49/2.44. Patient is admitted with 113/3.58. Patient is hyperchloremic non-anion gap metabolic acidosis. Bicarb 16, chloride 118. Started on IV fluid Ringer lactate. UA shows occult blood 250, protein 30 glucose 50 but negative RBC WBC. Bacteria 2+. Urine osmolality 397, protein creatinine ratio 2.185 g. CK is elevated, 417 not in the range of rhabdomyolysis. I discussed with integrated marketing intern, Dr. Flannery and consulted him. No hyperkalemia. 07/17: Kidney ultrasound shows increased echogenicity of right kidney. Proteinuria 2185 mg/g of creatinine, nonnephrotic range probably diabetic nephropathy. Urine osmolarity 397 more than serum osmolality 321. Urine sodium 28, potassium 26. Urine culture shows mixed gram-positive gram-negative organisms suggestive of contamination. Overall improvement in BUN/creatinine. Liver ultrasound was heterogeneous without mass-effect or cirrhosis otherwise normal liver ultrasound. 07/18: Patient had 1600 urine output yesterday. BUN/creatinine improving. Patient moved bowel yesterday. 07/19: Appreciate nephrology's assistance, renal function has returned to baseline 2. Acute on chronic severe anemia mostly due to upper GI bleed: Hemoglobin dropped to 6.6 from 7.2. It was 7.4 on 07/09. Before that, hemoglobin 15.4 in November 2012. Stool for occult blood positive. Monitor PRBC transfusion. Protonix 40 mg IV twice daily.GI consulted. Patient undergoing 1 unit of PRBC transfusion. Repeat H&H posttransfusion. 07/18: Seen by GI. Plan for EGD when hemodynamically stable and mental function improves. Patient had 1 unit of PRBC transfusion. Posttransfusion hemoglobin 7.9 and then dropped to 7.5 today. IV iron: 50 mg ordered 07/19: Plan for EGD 07/20: EGD will be done this afternoon we will recheck hemoglobin in the morning and if necessary transfuse another unit 3. Acute encephalopathy, exact etiology unclear suspect metabolic from uremia with incidental finding of brain mass/meningioma: I also think patient has baseline mental disorder/psychiatric diagnosis or personality disorder. Treat the underlying disorder. CT brain reported 1.59 x 1.05 x 1.43 cm hyperdense lesion in the posterior left occipital region along the falx. This may represent a meningioma. There is no associated edema mass effect or midline shift. This was not seen on the previous study of 2013. When patient is more stable we will do MRI brain . 07/18: Patient mental status better. He talks more quadrant. Acute encephalopathy resolved. MRI brain ordered tomorrow a.m. for them as described. 07/19: MRI with a stable benign meningioma, does appear encephalopathy has resolved 4. Left pathological fracture of right hip/proximal femur status postrepair, secondary malignant neoplasm of bone with possible primary prostate cancer: Details not available. Patient on enzalutamide 160 mg daily. Hold it for acute kidney injury. 5. Lumbar spine pain: Exact etiology unclear: Lumbar spine x-ray reported degenerative changes of moderate multilevel vertebral body osteophytosis and disc narrowing at multiple levels. Facet arthropathy. No acute change. Lumbar back pain is localized 6. Diabetes mellitus type 2: Accu-Chek insulin coverage Humalog sliding scale. Glucose is controlled 7. Other multiple comorbidities include CAD status post CABG, last PCI, hypertension, dyslipidemia, GERD: Home medication reconciliation DVT: SCDs Medications at Discharge Home Medications aspirin 81 mg tablet 81 mg PO DAILY 07/16/22 cholecalciferol (vitamin D3) 25 mcg (1,000 unit) tablet 25 mcg PO DAILY 07/16/22 enzalutamide 40 mg capsule 160 mg PO DAILY 07/16/22 ezetimibe 10 mg tablet 10 mg PO DAILY 07/16/22 metformin 1,000 mg tablet 1,000 mg PO BID 07/16/22 metoprolol succinate 25 mg capsule sprinkle, ext. release 24 hr 25 mg PO DAILY 07/16/22 multivitamin 1 tab PO DAILY 07/16/22 oxycodone 15 mg tablet 15 mg PO BID PRN Pain 07/16/22 oxycodone 5 mg tablet 2.5 mg PO Q4H PRN Pain 07/16/22 ropinirole 0.25 mg tablet 0.25 mg PO QHS 07/16/22 rosuvastatin 40 mg tablet 40 mg PO DAILY 07/16/22 tamsulosin 0.4 mg capsule 0.4 mg PO DAILY 07/16/22 amoxicillin 500 mg capsule 500 mg PO Q12 10 days #20 caps 07/21/22 ascorbic acid (vitamin C) 500 mg capsule,extended release (Vitamin C) 500 mg PO Q12H #1 cap 07/21/22 bismuth subsalicylate 262 mg/15 mL oral suspension (Pepto-Bismol) 524 mg (30 mL) PO .QID 10 days #1,200 mL 07/21/22 doxycycline monohydrate 100 mg capsule 100 mg PO BID 10 days #20 caps 07/21/22 ferrous sulfate 325 mg (65 mg iron) tablet 325 mg PO BID #1 TAB 07/21/22 metronidazole 500 mg tablet 500 mg PO BID 10 days #20 tabs 07/21/22 pantoprazole 40 mg granules delayed-release for susp in packet 40 mg PO BIDCM #1 ea 07/21/22 Hospital Course Operations None Procedures EGD Summary of Care Provided Minutes Spent on Discharge: 42 Hospital Course: Per HPI: ANGELES PHELPS, is a 72 M with much of the medical care.? Outside hospital was sent from [facility] for abnormal critical labs.? Patient BUN found to be 113, creatinine 3.58.? Patient has chronic kidney disease with last BUN/creatinine 49/2.44 on 07/09/2022 and last creatinine 1.5 in November 2012 in our system.? Potassium is normal 4.1, sodium 137, chloride 108, bicarb 16, anion gap 13. Patient history is very patchy and incomplete as does not give history in chronological order and switches from one topic to another, unclear of any chronic mental health disorder/psychiatric diagnosis. Overall it seems that patient has broken right hip, displaced fracture of lesser trochanter of right femur for which she had procedure done in outside hospital probably in [facility].? There he was told that he has secondary malignant neoplasm of bone probably primary from prostate cancer.? All the details of the cancer history is unknown.? Patient most of the care is outside of [facility].? After that, patient went to detention and then preoperative to [facility].? There he said he was picked up and dropped in [facility] that broke his back, lumbar spine.? Patient does not let me examine his back, cannot turn sideways because of pain.? All the time he says it knocked me down as of severe back pain.? Denies any fever.? No burning micturition or new urinary symptoms. He has pain over right hip region and thigh.? There are surgical lázaro over right hip lateral, middle and distal thigh suggestive of some sort of hip fracture procedure.? He said he had procedure done on the left hip but I do not see any surgical scar. In ED, patient had twelve-lead EKG shows sinus tachycardia at 113 bpm with PAC, MO 162 ms, QRS 90 ms.? QTc 334 ms.? No significant ST-T changes.? Patient did not have chest pain or shortness of breath. States he had coronary artery disease status post CABG and 4 stents.? CABG was done about 2 to 3 years ago but not mentioning past medical history.? Patient denies COPD but he was a former/ex-smoker Hospital Course: 1.? Acute kidney injury on CKD 3, unclear 3A or 3B: Patient baseline BUN/creatinine was 15/1.5 in November 2012.? No labs until 07/09/22 when BUN/creatinine 49/2.44.? Patient is admitted with 113/3.58.? Patient is hyperchloremic non-anion gap metabolic acidosis.? Bicarb 16, chloride 118.? Started on IV fluid Ringer lactate.? UA shows occult blood 250, protein 30 glucose 50 but negative RBC WBC.? Bacteria 2+.? Urine osmolality 397, protein creatinine ratio 2.185 g.? CK is elevated, 417 not in the range of rhabdomyolysis.? I discussed with integrated marketing intern, Dr. Flannery and consulted him.? No hyperkalemia. 07/17: Kidney ultrasound shows increased echogenicity of right kidney.? Proteinuria 2185 mg/g of creatinine, nonnephrotic range probably diabetic nephropathy.? Urine osmolarity 397 more than serum osmolality 321.? Urine sodium 28, potassium 26.? Urine culture shows mixed gram-positive gram-negative organisms suggestive of contamination.? Overall improvement in BUN/creatinine.? Liver ultrasound was heterogeneous without mass-effect or cirrhosis otherwise normal liver ultrasound. 07/18: Patient had 1600 urine output yesterday.? BUN/creatinine improving.? Patient moved bowel yesterday. 07/19: Appreciate nephrology's assistance, renal function has returned to baseline 2.? Acute on chronic severe anemia mostly due to upper GI bleed: Hemoglobin dropped to 6.6 from 7.2.? It was 7.4 on 07/09.? Before that, hemoglobin 15.4 in November 2012.? Stool for occult blood positive.? Monitor PRBC transfusion.? Protonix 40 mg IV twice daily.GI consulted.? Patient undergoing 1 unit of PRBC transfusion.? Repeat H&H posttransfusion. 07/18: Seen by GI.? Plan for EGD when? hemodynamically stable and mental function improves.? Patient had 1 unit of PRBC transfusion.? Posttransfusion hemoglobin 7.9 and then dropped to 7.5 today.? IV iron: 50 mg ordered 07/19: Plan for EGD 07/20: EGD will be done this afternoon we will recheck hemoglobin in the morning and if necessary transfuse another unit 07/21: EGD with significant gastritis and gastropathy. In discussion with gastroenterology they felt that this could all be associated with H. pylori so they recommended 10 days of amoxicillin, doxycycline, Flagyl, and Pepto-Bismol. Biopsy and pathology are waiting and I do recommend close outpatient follow-up on discharge. Given his anemia and the signs of bleeding from his gastritis I do also recommend some iron replacement therapy. Since we increased his PPI to twice daily dosing, will also provide him with vitamin C twice daily to take whenever he takes his iron supplement. 3.? Acute encephalopathy, exact etiology unclear suspect metabolic from uremia with incidental finding of brain mass/meningioma: I also think patient has baseline mental disorder/psychiatric diagnosis or personality disorder.? Treat the underlying disorder. CT brain reported 1.59 x 1.05 x 1.43 cm hyperdense lesion in the posterior left occipital region along the falx.? This may represent a meningioma.? There is no associated edema mass effect or midline shift.? This was not seen on the previous study of 2013.? When patient is more stable we will do MRI brain . 07/18: Patient mental status better.? He talks more quadrant.? Acute encephalopathy resolved.? MRI brain ordered tomorrow a.m. for them as described. 07/19: MRI with a stable benign meningioma, does appear encephalopathy has resolved ? 4.? Left pathological fracture of right hip/proximal femur status postrepair, secondary malignant neoplasm of bone with possible primary prostate cancer: Details not available.? Patient on enzalutamide 160 mg daily.? His prostate medication can be resumed on discharge. It also appears that he was discharged on Lovenox injections likely from the hip surgery and also possibly his prostate cancer with metastatic lesions to the bone, would recommend holding these given his recent GI bleed for the next few days. Restarting the Lovenox would be contingent on the risk versus benefit according to his orthopedic surgeon and oncologist 5.? Lumbar spine pain: Exact etiology unclear: Lumbar spine x-ray reported degenerative changes of moderate multilevel vertebral body osteophytosis and disc narrowing at multiple levels.? Facet arthropathy.? No acute change.? Lumbar back pain is localized 6.? Diabetes mellitus type 2: Accu-Chek insulin coverage Humalog sliding scale.? Glucose is controlled 7.? Other multiple comorbidities include CAD status post CABG, last PCI, hypertension, dyslipidemia, GERD: Home medication reconciliation Physical Exam Narrative General: Alert, Oriented x3, Cooperative, No apparent distress HEENT: Atraumatic, PERRLA, EOMI, Normocephalic, pale Oral: Moist Mucosa Neck: Supple, No JVD Lungs: Clear to auscultation, Normal air movement, No rhonchi, No wheeze, No rales Cardiovascular: Regular rate, Regular Rhythm, Normal S1, Normal S2, No murmurs Abdomen: Soft, Non Tender, Non-Distended, No Hepato-splenomegaly Extremities: No edema, Capillary Refill Less than 3 Seconds Skin: No rashes, No breakdown Musculoskeletal: No Tenderness to Palpation of Joints or Extremities Neurological: Cranial nerves II-XII grossly intact, Motor Exam 5/5 strength throughout, Sensory exam intact to light touch and pain Psych/Mental Status: Flat affect, Appropriate, tangential speech Medical Records Data Medical Nutrition Assessment Dietitian: Malnutrition Criteria Met Start: 07/16/22 15:15 Freq: Status: Active Protocol: Document 07/19/22 15:47 AG (Rec: 07/19/22 15:47 AG [id number]) Nutrition Malnutrition Evidence of Malnutrition Exists Yes Malnutrition (severe): Acute Illness/Injury Evidenced By Suboptimal Energy Intake ( Severe),Weight Loss (Severe), Physical Changes (Moderate) Clinical Problem Acute Disease or Injury Related Malnutrition Etiology severe, acute malnutrition related to inadequate energy intake d/t pain Signs/Symptoms as evidenced by unintentional wt loss of 12.2#/7% <1 week; estimated PO intake meeting < 50% of estimated energy needs >5 days; Moderate muscle wasting/fat loss evident per physical exam in orbital, temporal, clavicle, and acromion region. Status Active Problem Recommendation Dietitian Recommendations/Changes regular diet- okay for purees if pt requests; 120mL ensure plus high protein w/ medpass for additional calories/ protein if consumed. Weight / BMI Weight Weight: 169 lb 8 oz Body Mass Index (BMI) 24.3 ABG / Lab / Microbiology Data Result Diagrams: 07/21/22 05:15 07/21/22 05:15 Laboratory: Laboratory Results - last 24 hr 07/20/22 04:00: Diff Path Review Reviewed 07/20/22 15:29: POC Glucose 103 07/20/22 21:21: POC Glucose 151 H 07/21/22 05:15: WBC 10.1, RBC 3.10 L, Hgb 7.5 L, Hct 24.1 L, MCV 77.7 L, MCH 24.2 L, MCHC 31.1 L, RDW Std Deviation 59.6 H, RDW Coeff of Chidi 21.4 H, Plt Count 181, MPV 9.7, Neut % (Auto) Not Reportable, Absolute Neuts (auto) 8.5 H, Absolute Lymphs (auto) 0.51 L, Total Counted 100, Neutrophils % (Manual) 81 H, Band Neutrophils % 3, Lymphocytes % (Manual) 5 L, Monocytes % (Manual) 8, Metamyelocytes % 3 H, Diff Path Review May foll, Platelet Estimate ADEQUATE, Anisocytosis 1+, Microcytosis 1+, Ovalocytes RARE 07/21/22 05:15: Sodium 140, Potassium 3.3 L, Chloride 108 H, Carbon Dioxide 24.0, Anion Gap 8, BUN 31 H, Creatinine 1.23, Estim Creat Clear Calc 56.88, Est GFR (MDRD) Af Amer 75, Est GFR (MDRD) Non-Af 62, BUN/Creatinine Ratio 25.2 H, Glucose 121 H, Calcium 7.8 L 07/21/22 06:24: POC Glucose 111 H 07/21/22 12:01: POC Glucose 154 H Microbiology: Microbiology 07/21/22 12:00 Nasal Secretion SARS-CoV-2 Antigen (Rapid) - Final 07/16/22 09:26 Urine, Clean Catch Urine Culture - Final Mixed Gram Pos & Gram Neg Org 07/17/22 11:00 Stool Stool Occult Blood (DOUGLAS) - Final Occult Blood Positive Meaningful Use Info Meaningful Use Diagnoses (Choose all that apply): None applicable Discharge Plan Admission Admit Date/Time: 07/16/22 11:04 Attending Provider: Chris Hirsch Primary Care Provider: Tan Mercado Consulting Providers: Milena Goodwin ; Cruz Noonan Discharge Orders/Prescriptions Prescriptions: New amoxicillin 500 mg Capsule 500 mg PO Q12 10 Days Qty: 20 0RF metronidazole 500 mg Tablet 500 mg PO BID 10 Days Qty: 20 0RF doxycycline monohydrate 100 mg Capsule 100 mg PO BID 10 Days Qty: 20 0RF ferrous sulfate 325 mg (65 mg iron) tablet 325 mg PO BID Qty: 1 0RF ascorbic acid (vitamin C) [Vitamin C] 500 mg capsule, extended release 500 mg PO Q12H Qty: 1 0RF bismuth subsalicylate [Pepto-Bismol] 262 mg/15 mL suspension 524 mg PO .QID 10 Days Qty: 1200 0RF Continued multivitamin Tablet 1 tab PO DAILY oxycodone 15 mg Tablet 15 mg PO BID PRN (Reason: Pain) tamsulosin 0.4 mg Capsule 0.4 mg PO DAILY ropinirole 0.25 mg Tablet 0.25 mg PO QHS Rx Instructions: administer 1-3 hours before bedtime metformin 1,000 mg Tablet 1,000 mg PO BID oxycodone 5 mg Tablet 2.5 mg PO Q4H PRN (Reason: Pain) ezetimibe 10 mg Tablet 10 mg PO DAILY rosuvastatin 40 mg Tablet 40 mg PO DAILY cholecalciferol (vitamin D3) 25 mcg (1,000 unit) Tablet 25 mcg PO DAILY enzalutamide 40 mg Capsule 160 mg PO DAILY metoprolol succinate 25 mg Capsule,Sprinkle,Er 24hr 25 mg PO DAILY Changed pantoprazole [address] For Susp In Packet 40 mg PO BIDCM Qty: 1 0RF Held aspirin 81 mg Tablet 81 mg PO DAILY Hold Instructions: Resume on 07/27/22. Discontinued enoxaparin 40 mg/0.4 mL Syringe 40 mg SUBCUT DAILY Referrals / Follow Up: Tan Mercado MD [Primary Care Provider] - Disposition Disposition (needs filled in before D/C Order can be placed): [facility] Facility Charges/Coding Visit Charges Inpatient E&M: 14396 Disch Hosp
--- NOTE | 2022-07-21 14:44 | NURSING ---
report called to [facility] and deisy just left w/pt via squad.
[2022-07-22 13:21] LABS: Pathologist Review Reviewed
== END 2022-07-21 14:36 | DRG 682 ==
LOC: ED 11:31 → MS3 11:40
PROVIDERS: Family Medicine; Internal Medicine Gastroenterology; Internal Medicine Nephrology; Admitting Provider Internal Medicine; Emergency Provider Emergency Medicine; PCP Internal Medicine; Visit Provider Family Medicine
PROC: 0DJ08ZZ Inspection of Upper Intestinal Tract, Via Natural or Artificial Opening Endoscopic (ICD-10-PCS; CPT 43235; principal; 2022-07-20 16:25)
DX: N17.9 Acute kidney failure, unspecified (principal); K29.51 Unspecified chronic gastritis with bleeding; G93.41 Metabolic encephalopathy; E43 Unspecified severe protein-calorie malnutrition; K25.0 Acute gastric ulcer with hemorrhage; C79.51 Secondary malignant neoplasm of bone; K76.6 Portal hypertension; E87.2 Acidosis; M62.82 Rhabdomyolysis; E11.21 Type 2 diabetes mellitus with diabetic nephropathy; G31.9 Degenerative disease of nervous system, unspecified; D32.9 Benign neoplasm of meninges, unspecified; C61 Malignant neoplasm of prostate; N18.30 Chronic kidney disease, stage 3 unspecified; E11.65 Type 2 diabetes mellitus with hyperglycemia; E11.22 Type 2 diabetes mellitus with diabetic chronic kidney disease; E88.09 Other disorders of plasma-protein metabolism, not elsewhere classified; D63.1 Anemia in chronic kidney disease; E78.5 Hyperlipidemia, unspecified; I12.9 Hypertensive chronic kidney disease with stage 1 through stage 4 chronic kidney disease, or unspecified chronic kidney disease; D50.0 Iron deficiency anemia secondary to blood loss (chronic); M47.9 Spondylosis, unspecified; K82.8 Other specified diseases of gallbladder; K21.9 Gastro-esophageal reflux disease without esophagitis; K31.89 Other diseases of stomach and duodenum; K31.9 Disease of stomach and duodenum, unspecified; I25.10 Atherosclerotic heart disease of native coronary artery without angina pectoris; Z79.82 Long term (current) use of aspirin; N28.1 Cyst of kidney, acquired; Z79.01 Long term (current) use of anticoagulants; Z87.891 Personal history of nicotine dependence; M54.50 Low back pain, unspecified; N40.0 Benign prostatic hyperplasia without lower urinary tract symptoms; S72.121D Displaced fracture of lesser trochanter of right femur, subsequent encounter for closed fracture with routine healing; Z95.1 Presence of aortocoronary bypass graft
CPT/HCPCS: 36415; 70450; 70553; 72100; 76705; 76770; 80048; 80069; 80076; 81001; 82274; 82436; 82550; 82570; 82962; 83735; 83930; 83935; 84100; 84133; 84156; 84300; 85014; 85018; 85025; 85610; 86850; 86900; 86901; 86920; 86922; 87086; 87088; 87426; 88305; 88342; 93005; 97110; 97116; 97162; 97166; 97530; 97535; 97802; 97803; 99251; 99285; A9575; J7030; J7040; J7050; J7120; P9016; A4216; G0463; J2916

== ENCOUNTER → 2022-07-16 | Outpatient (REF) | payer MEDICARE, MEDICAID, SELFPAY ==
[2022-07-16 07:52] LABS: Hematocrit 23.9 % (40-54); Hemoglobin 7.2 g/dL (13.0-16.5); Mean Corp Hgb Conc 30.1 g/dL (32-36); Mean Corpuscular Hgb 23.7 pg (27.0-32.0); Mean Corpuscular Volume 78.6 fL (80-94); Mean Platelet Vol. 10.3 fl (6.2-12.0); POSITIVE COUNT YES; POSITIVE DIFFERENTIAL YES; POSITIVE MORPHOLOGY YES; Platelet Count 164 K/mm3 (150-450); RBC Distribution Width CV 23.3 % (11.6-14.6); RBC Distribution Width SD 65.7 fl (35.1-43.9); Red Blood Count 3.04 M/mm3 (4.6-6.2); White Blood Count 7.1 K/mm3 (4.4-11.0)
[2022-07-16 07:55] LABS: Differential Indicated MANUAL DIFF
[2022-07-16 08:16] LABS: Anion Gap 13 (5-15); BUN 113 mg/dL (7-18); BUN/Creat Ratio 31.6 RATIO (10-20); Calcium,Total 8.4 mg/dL (8.5-10.1); Chloride 108 mmol/L (98-107); Creatinine, Serum 3.58 mg/dL (0.70-1.30); EST Glomerular Filtration Rate 18 mL/min (>60); Est Glom Filt Rate - Afr Amer 22 mL/min (>60); Glucose 124 mg/dL (74-106); Potassium 4.1 mmol/L (3.5-5.1); Sodium Level 137 mmol/L (136-145)
[2022-07-16 08:22] LABS: Lymphocyte 13 % (19-41); Monocyte 5 % (0-10); Neutrophil-Segmented 82 % (47-70); Total Cells Counted 100 (MANUAL DIFF)
[2022-07-16 08:23] LABS: Platelet Estimate ADEQUATE (ADEQ); Red Cell Morphology NORM C+C NORMAL (NORM C&C)
[2022-07-16 08:24] LABS: Absolute Lymphocyte Count 0.92 X10^3/uL (0.83-4.51); Absolute Neutrophil Count 5.8 X10^3/uL (2.0-7.7); Lymphocyte # 0.92 X10^3/ul (0.83-4.51)
[2022-07-19 12:33] LABS: Pathologist Review Reviewed
== END ==
LOC: OLS.SW1020 05:00
PROVIDERS: PCP Internal Medicine; Visit Provider Internal Medicine
DX: D64.9 Anemia, unspecified (principal); E11.9 Type 2 diabetes mellitus without complications; B99.9 Unspecified infectious disease

== ENCOUNTER 2022-09-26 20:33 | Emergency (ER) | payer MEDICARE, MEDICAID, SELFPAY ==
[2022-09-26 20:34] VITALS: BP 123/84; PULSE 110; RESP 16; TEMP 37.2; O2SAT 94; BMI 22.2
--- NOTE | 2022-09-26 21:01 | CT_ITS ---
STUDY: CT ABDOMEN AND PELVIS WITH CONTRAST REASON FOR EXAM: Male, 72 years old. abdominal pain RADIATION DOSAGE (If Supplied By Facility): CTDIvol = ( 12.76 ) mGy, DLP = ( 890.75 ) mGycm TECHNIQUE: Transaxial images were obtained from the dome of the diaphragm to the symphysis pubis without oral contrast. IV 100mL Isovue-370 was administered. Sagittal and coronal images were reconstructed. Individualized dose optimization techniques were used for this CT. COMPARISON: Abdominal ultrasound July 16, 2022 FINDINGS: The visualized lung bases are unremarkable. The visualized portions of the heart are within normal limits. Normal liver. Normal gallbladder and extrahepatic biliary system. There is moderate splenomegaly. Normal pancreas. Normal bilateral adrenal glands. 14 mm simple right renal cortical cyst. 16 mm simple left renal cortical cyst. No further follow-up required as this appears simple/benign. Normal visualized stomach. Oral contrast noted in the small bowel. Multiple air-fluid levels are noted in the small and large bowel. Possible filling defect noted in the left colon. Circumferential thickening is noted in the right colon and cecum. The appendix is visualized and appears normal. Calcified plaque along the aorta and its branches. There appears to be a aortobiiliac stent which is patent. Normal inferior vena cava. Normal retroperitoneum. Normal urinary bladder. Normal abdominal wall. Diffuse osteosclerosis. Compression fracture T11 and L1. No significant retropulsion. Hypertrophic spurring left iliac wing. CT/Abdomen/Pelvis W IV Cont ONLY IMPRESSION: Nonspecific right colitis. Possible left colonic mass. Diffuse osteosclerosis consistent with metastatic disease or other myeloproliferative replacement. Pathologic compression fractures noted at T11 and L1. Electronically Signed: Rusty Galloway MD at 23:05 EST ,
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
[2022-09-26 21:16] LABS: Bacteria 0 SEEN /hpf (None Seen); Mucous, Urine 0 SEEN /hpf (<or=2+); Red Blood Cells-Urine 0 SEEN /hpf (0-5)
[2022-09-26 21:22] LABS: Color, Urine Yellow (Yellow); Glucose, Dipstick Normal (Normal); Ketone-Dipstick Negative (Negative); Leukocyte Esterase-Dipstick 25 /ul (Negative); Nitrite-Dipstick Negative (Negative); Occult Blood-Urine Negative /ul (Negative); Protein-Dipstick 30 mg/dl (Negative); Specific Gravity, Urine 1.015 (1.002-1.030); Urine Bilirubin Dipstick Negative (Negative); Urine Clarity Sl. Cloudy (Clear); Urine Urobilinogen Normal (Normal); Urine pH 6.5 (5.0 - 8.0)
[2022-09-26] MEDS: 0.9% Normal Saline 1,000 ML 999 ML IV (21:25)
[2022-09-26 21:35] LABS: Amorphous Sediment 1+ URATE; Squamous Epithelial Cells - UA 0-5 SEEN /hpf (0-5); White Blood Cells 0-5 SEEN /hpf (0-5)
[2022-09-26 21:46] LABS: Absolute Lymphocyte Count 0.39 X10^3/uL (0.83-4.51); Absolute Neutrophil Count 6.5 X10^3/uL (2.0-7.7); Basophil# 0.02 X10^3/uL; Basophil% 0.3 % (0-1); Eosinophil# 0.03 X10^3/uL; Eosinophils% 0.4 % (0-5); Hematocrit 27.8 % (40-54); Hemoglobin 8.6 g/dL (13.0-16.5); Lymphocyte # 0.39 X10^3/ul (0.83-4.51); Lymphocyte % 5.2 % (19-41); Mean Corp Hgb Conc 30.9 g/dL (32-36); Mean Corpuscular Hgb 26.1 pg (27.0-32.0); Mean Corpuscular Volume 84.2 fL (80-94); Mean Platelet Vol. 9.7 fl (6.2-12.0); Monocyte# 0.42 X10^3/uL; Monocyte% 5.6 % (0-10); NRBC Flagged by Analyzer 0 % (0-5); Neutrophil # 6.49 X10^3/uL (2.7-7.7); Neutrophil % 87.3 % (47-70); POSITIVE DIFFERENTIAL YES; Platelet Count 221 K/mm3 (150-450); RBC Distribution Width CV 16.9 % (11.6-14.6); RBC Distribution Width SD 51.9 fl (35.1-43.9); White Blood Count 7.4 K/mm3 (4.4-11.0)
[2022-09-26 21:54] LABS: Differential Indicated SCAN CRITERIA MET
--- NOTE | 2022-09-26 22:00 | RAD_ITS ---
STUDY: X-RAY - RIGHT WRIST REASON FOR EXAM: Male, 72 years old. pain TECHNIQUE: 3 view(s) of the wrist were obtained. COMPARISON: None. FINDINGS: Normal visualized distal radius and ulna. Normal radiocarpal articulation. Normal distal radioulnar articulation. Normal carpal bones. There is widening of the scapholunate articulation suggesting a sprain of the scapholunate interosseous ligament. There is degenerative arthrosis of the carpometacarpal articulation of the thumb. Normal second through fifth carpometacarpal articulations. Normal visualized metacarpal bones. Diffuse soft tissue swelling. 2 or 3 ossific densities dorsal to the wrist. RAD/Wrist min 3 Views IMPRESSION: Scapholunate dissociation. Possible old avulsion fracture triquetrum. Degenerative change. Electronically Signed: Rusty Galloway MD at 22:25 EST ,
[2022-09-26 22:08] LABS: ALB/GLOB Ratio 0.5 RATIO (0.9-2.4); AST(SGOT) 31 U/L (15-37); Alanine Aminotransfer ALT/SGPT 16 U/L (16-61); Albumin, Serum 2.3 g/dL (3.2-5.0); Alkaline Phosphatase 165 U/L (45-117); Anion Gap 6 (5-15); BUN 9 mg/dL (7-18); BUN/Creat Ratio 10.2 RATIO (10-20); Calcium,Total 8.5 mg/dL (8.5-10.1); Chloride 103 mmol/L (98-107); Creatinine, Serum 0.88 mg/dL (0.70-1.30); EST Glomerular Filtration Rate 90 mL/min (>60); Est Glom Filt Rate - Afr Amer 109 mL/min (>60); Estimated Creatinine Clearance 76.56 ml/min; Globulin 4.5 g/dL (2.2-4.2); Glucose 120 mg/dL (74-106); Lipase 286 U/L (73-393); Potassium 3.2 mmol/L (3.5-5.1); Protein, Total 6.8 g/dL (6.4-8.2); Sodium Level 136 mmol/L (136-145)
[2022-09-26 22:29] LABS: Differential Comment SCANNED
[2022-09-27 00:03] VITALS: BP 128/73; PULSE 78; RESP 16; O2SAT 95
== END 2022-09-27 00:11 | disposition home or self-care (01) ==
PROVIDERS: Emergency Provider Student in an Organized Health Care Education/Training Program; PCP Internal Medicine; Visit Provider Student in an Organized Health Care Education/Training Program
DX: C79.51 Secondary malignant neoplasm of bone (principal); R10.30 Lower abdominal pain, unspecified; K59.00 Constipation, unspecified; R19.7 Diarrhea, unspecified; S63.91XA Sprain of unspecified part of right wrist and hand, initial encounter; Z87.891 Personal history of nicotine dependence; X58.XXXA Exposure to other specified factors, initial encounter
CPT/HCPCS: 73110; 74177; 80053; 81001; 83690; 85025; 96360; 99284; J7030; Q9967

== ENCOUNTER 2022-10-07 11:43 | Emergency (ER) | payer MEDICARE, MEDICAID, SELFPAY ==
[2022-10-07 11:45] VITALS: BP 105/68; PULSE 76; RESP 16; TEMP 36.7; O2SAT 99; BMI 22.0
--- NOTE | 2022-10-07 12:28 | ED.VIS.GI ---
HPI HPI - GI History of Present Illness Chief Complaint: Nausea/Vomiting Informant: patient Abdominal Pain/Flank Pain Onset: Days Context: Gradual Onset Timing: Intermittent Current Severity: Mild Maximum Severity: Mild Nausea/Vomiting/Emesis GI Symptom: Positive for Nausea and Vomiting Onset: Days Severity: Mild Diarrhea/Melena/Hematochezia GI Symptom: Negative for Diarrhea, Melena or Hematochezia Associated Symptoms Associated Symptoms: Negative for Dysuria, Frequency, Hematuria or Urgency Narrative Narrative: 72-year-old male history of stage IV prostate cancer with bony mets, anemia and diabetes. Prior pathologic fracture. Sent in from home due to nausea and vomiting. He was seen here on Tuesday and discharged. States when he throws up its clear liquids he thinks is associated with taking his pain medication. He denies any hematemesis. He states he has had upper endoscopy showing gastritis. Denies any fever. No significant abdominal pain. Prior similar symptoms: Yes Recent Illness/Hospitalization: No PFSH PFSH Medical History Anemia, unspecified BPH (benign prostatic hyperplasia) Displaced fracture of lesser trochanter of right femur, subsequent encounter for closed fracture with routine healing Essential (primary) hypertension Gastro-esophageal reflux disease without esophagitis Generalized weakness Hyperlipidemia, unspecified Malignant neoplasm of prostate Other pancytopenia Pathological fracture, other site, subsequent encounter for fracture with routine healing Pathological fracture, right femur, subsequent encounter for fracture with routine healing Secondary malignant neoplasm of bone Type 2 diabetes mellitus without complications Unspecified fracture of left ilium, subsequent encounter for fracture with routine healing Home Medications aspirin 81 mg tablet 81 mg PO DAILY 07/16/22 [History Last Taken Unknown] cholecalciferol (vitamin D3) 25 mcg (1,000 unit) tablet 25 mcg PO DAILY 07/16/22 [History Last Taken Unknown] enzalutamide 40 mg capsule 160 mg PO DAILY 07/16/22 [History Last Taken Unknown] ezetimibe 10 mg tablet 10 mg PO DAILY 07/16/22 [History Last Taken Unknown] metformin 1,000 mg tablet 1,000 mg PO BID 07/16/22 [History Last Taken Unknown] metoprolol succinate 25 mg capsule sprinkle, ext. release 24 hr 25 mg PO DAILY 07/16/22 [History Last Taken Unknown] multivitamin 1 tab PO DAILY 07/16/22 [History Last Taken Unknown] oxycodone 15 mg tablet 15 mg PO BID PRN Pain 07/16/22 [History Last Taken Unknown] oxycodone 5 mg tablet 2.5 mg PO Q4H PRN Pain 07/16/22 [History Last Taken Unknown] ropinirole 0.25 mg tablet 0.25 mg PO QHS 07/16/22 [History Last Taken Unknown] rosuvastatin 40 mg tablet 40 mg PO DAILY 07/16/22 [History Last Taken Unknown] tamsulosin 0.4 mg capsule 0.4 mg PO DAILY 07/16/22 [History Last Taken Unknown] amoxicillin 500 mg capsule 500 mg PO Q12 10 days #20 caps 07/21/22 [Rx Last Taken Unknown] ascorbic acid (vitamin C) 500 mg capsule,extended release (Vitamin C) 500 mg PO Q12H #1 cap 07/21/22 [Rx Last Taken Unknown] bismuth subsalicylate 262 mg/15 mL oral suspension (Pepto-Bismol) 524 mg (30 mL) PO .QID 10 days #1,200 mL 07/21/22 [Rx Last Taken Unknown] doxycycline monohydrate 100 mg capsule 100 mg PO BID 10 days #20 caps 07/21/22 [Rx Last Taken Unknown] ferrous sulfate 325 mg (65 mg iron) tablet 325 mg PO BID #1 TAB 07/21/22 [Rx Last Taken Unknown] metronidazole 500 mg tablet 500 mg PO BID 10 days #20 tabs 07/21/22 [Rx Last Taken Unknown] pantoprazole 40 mg granules delayed-release for susp in packet 40 mg PO BIDCM #1 ea 07/21/22 [Rx Last Taken Unknown] ondansetron 4 mg disintegrating tablet 4 mg PO Q6H PRN nausea and vomiting #10 tabs 10/07/22 [Rx Last Taken Unknown] Allergy/AdvReac Type Severity Reaction Status Date / Time No Known Allergies Allergy Verified 10/07/22 11:51 Social History household members: none Smoking Status: Former smoker substance use type: does not use ROS ROS ED ROS Narrative Nausea and vomiting. Review of Systems ROS Unobtainable: Denies due to encephalopathy Constitutional Constitutional ED: Denies chills or fever(s) ENT ENT ED: Denies ear pain Cardiovascular Cardiovascular: Denies chest pain Respiratory/Chest Respiratory/Chest: Denies cough or dyspnea Gastrointestinal Gastrointestinal: Reports constipation, nausea and vomiting; Denies abdominal pain or diarrhea Genitourinary Genitourinary ED: Denies dysuria or hematuria Musculoskeletal Musculoskeletal: Denies arthralgias Integumentary Denies abscess Neurologic Neurologic: Denies headache(s) Psychiatric Psychiatric: Denies anxiety Endocrine Endocrinology: Denies polydipsia Hematologic/Lymphatic Hematologic/Lymphatic: Denies easy bleeding Allergic/Immunologic Allergic/Immunologic ED: Denies mouth swelling or tongue swelling EXAM Physical Exam Narrative Exam Narrative: 72-year-old male vital signs stable afebrile. Pulse ox 9 9% on room air no signs hypoxia. Initial pressure 105/68. He does not look septic or toxic. H EENT exam mildly dry mucous membranes. No hematemesis. Neck nontender. Lungs are clear. Heart regular rhythm rate of 75 no murmur. Chest wall nontender. Abdomen soft nontender. Nondistended normal bowel sounds no peritoneal signs. No hernia or mass. No obstruction. No right upper or right lower quadrant tenderness. Moving all 4 extremities. Normal strength. Neurologically is awake and alert. No focal motor deficits. Const Vital Signs: 10/07/22 11:45 10/07/22 13:18 Temperature 98.1 F Temperature Source Temporal Pulse Rate 76 91 Respiratory Rate 16 13 Blood Pressure 105/68 102/67 Blood Pressure Mean 80 78 Pulse Ox 99 97 Oxygen Delivery Method Room Air Room Air Positive well nourished and well developed; Negative for obese, cachectic, contractures or unkempt General Appearance ED: well developed, NAD and pallor; Negative for unkempt, cachectic or contractures Nutritional Appearance: Negative for cachectic or obese HEENT Reports dry mucous membranes; Denies moist mucous membranes normocephalic and atraumatic; Negative for trauma or tenderness Mouth ED: Yes dry mucous membranes Mouth: dry mucous membranes Eyes PERRL and EOMs intact bilaterally General Eye ED: Yes pale conjunctiva; Negative for scleral icterus or other Neck no lymphadenopathy, supple and no JVD General: Negative for tenderness Carotids: Negative for other Lymph Lymphatic: Negative for other Resp normal respiratory effort and clear to auscultation bilaterally Effort and Inspection: Negative for respiratory distress Auscultation: Negative for rales, rhonchi or wheezes Cardio regular rate, regular rhythm, S1 normal heart sound, S2 normal heart sound and no murmurs Rate: Negative for bradycardia GI non-tender, non-distended and no masses Inspection: Negative for abdominal distention Auscultation: normoactive bowel sounds Palpation: soft; Negative for tender, guarding or rigid Back/Spine no CVA tenderness General Back: Negative for CVA tenderness Cervical Spine: Negative for cervical spine tenderness Thoracic Spine / Upper Back: Negative for thoracic spinal tenderness Lumbar Spine / Lower Back: Negative for lumbar spinal tenderness Coccyx: Negative for other Extremity full ROM General Extremety ED: Negative for edema or tenderness General Extremity: Negative for edema Neuro CN's II-XII intact bilaterally and moves all extremities Sensorium / Orientation: alert, oriented to person, oriented to place and oriented to time Motor Exam: strength 5/5 throughout Psych mental status grossly normal and thought process normal Appearance: Negative for unkempt Attitude: No agitated Mood & Affect: Negative for depressed, anxious or tearful Skin no wounds General Skin Exam: pallor; Negative for jaundice Lesions: no lesions Rashes: no rashes Trauma: Negative for abrasion Nails: Negative for discolored MDM MDM MDM Narrative Medical decision making narrative: 72-year-old male with metastatic prostate cancer stage IV. Having episodes of nausea and vomiting. His abdomen is benign. He seems dehydrated to be treated with a liter normal saline screening labs are being obtained. He is in no distress. Repeat exam patient is doing well. He is resting comfortably at 3:10 PM. He and I went over his test results. I did do a rectal exam he is got loose brown stool. There is no melena or gross blood or black stool. Schedule being discharged home with a prescription for Zofran. Lab Data Attestation: I reviewed the patient's lab results. Lab results narrative: CBC shows a white count of 4.1 H&H of 7.5 and 24. Platelet count is low also at 103,000. Electrolytes show sodium 135 potassium 3.4 gap of 7. Normal BUN and creatinine. Liver enzymes are unremarkable. Glucose 114. These labs are consistent with the patient's baseline he runs anemia between 7.5 and 8.5. Labs: Laboratory Results - last 24 hr 10/07/22 10/07/22 12:40 12:40 WBC 4.1 L RBC 2.87 L Hgb 7.5 L Hct 24.0 L MCV 83.6 MCH 26.1 L MCHC 31.3 L RDW Std Deviation 51.8 H RDW Coeff of Chidi 17.1 H Plt Count 103 L MPV 9.6 Immature Gran % (Auto) 1.000 H Neut % (Auto) 82.8 H Lymph % (Auto) 6.9 L [place] % (Auto) 8.6 Eos % (Auto) 0.5 Baso % (Auto) 0.2 Absolute Neuts (auto) 3.4 Absolute Lymphs (auto) 0.28 L Nucleated RBC % [address] Review May foll Anisocytosis 2+ Sodium 135 L Potassium 3.4 L Chloride 100 Carbon Dioxide 28.0 Anion Gap 7 BUN 10 Creatinine 0.88 Estim Creat Clear Calc 75.80 Est GFR (MDRD) Af Amer 109 Est GFR (MDRD) Non-Af 90 BUN/Creatinine Ratio 11.3 Glucose 114 H Calcium 8.1 L Total Bilirubin 0.50 AST 23 ALT 15 L Alkaline Phosphatase 114 Total Protein 6.4 Albumin 2.0 L Globulin 4.4 H Albumin/Globulin Ratio 0.5 L Discharge Plan Triage Chief Complaint: Nausea/Vomiting ED Provider: García Taylor Dx/Rx/DC Orders Clinical Impression: Nausea & vomiting, History of prostate cancer, History of diabetes mellitus, History of anemia of chronic disease Instructions: ED Vomiting (Adult) Prescriptions: New ondansetron 4 mg tablet,disintegrating 4 mg PO Q6H PRN (Reason: nausea and vomiting) Qty: 10 0RF No Action multivitamin Tablet 1 tab PO DAILY oxycodone 15 mg Tablet 15 mg PO BID PRN (Reason: Pain) tamsulosin 0.4 mg Capsule 0.4 mg PO DAILY ropinirole 0.25 mg Tablet 0.25 mg PO QHS Rx Instructions: administer 1-3 hours before bedtime metformin 1,000 mg Tablet 1,000 mg PO BID aspirin 81 mg Tablet 81 mg PO DAILY Hold Instructions: Resume on 07/27/22. oxycodone 5 mg Tablet 2.5 mg PO Q4H PRN (Reason: Pain) ezetimibe 10 mg Tablet 10 mg PO DAILY rosuvastatin 40 mg Tablet 40 mg PO DAILY cholecalciferol (vitamin D3) 25 mcg (1,000 unit) Tablet 25 mcg PO DAILY enzalutamide 40 mg Capsule 160 mg PO DAILY metoprolol succinate 25 mg Capsule,Sprinkle,Er 24hr 25 mg PO DAILY amoxicillin 500 mg Capsule 500 mg PO Q12 10 Days Qty: 20 0RF metronidazole 500 mg Tablet 500 mg PO BID 10 Days Qty: 20 0RF doxycycline monohydrate 100 mg Capsule 100 mg PO BID 10 Days Qty: 20 0RF ferrous sulfate 325 mg (65 mg iron) tablet 325 mg PO BID Qty: 1 0RF ascorbic acid (vitamin C) [Vitamin C] 500 mg capsule, extended release 500 mg PO Q12H Qty: 1 0RF bismuth subsalicylate [Pepto-Bismol] 262 mg/15 mL suspension 524 mg PO .QID 10 Days Qty: 1200 0RF pantoprazole [address] For Susp In Packet 40 mg PO BIDCM Qty: 1 0RF Primary Care Provider: Care Physician,No Primary Referrals: Tan Mercado MD [Med Staff - Warehouse Freight Handler] - 1 Week if not improving Activity Restrictions/Additional Instructions: Plenty of fluids and rest. Zofran as needed for nausea. Follow-up with your Doctor. Disposition Disposition: Home, Self Care
[2022-10-07] MEDS: 0.9% Normal Saline 1,000 ML 1000 ML IV (12:42)
[2022-10-07 12:54] LABS: Absolute Lymphocyte Count 0.28 X10^3/uL (0.83-4.51); Absolute Neutrophil Count 3.4 X10^3/uL (2.0-7.7); Basophil# 0.01 X10^3/uL; Basophil% 0.2 % (0-1); Eosinophil# 0.02 X10^3/uL; Eosinophils% 0.5 % (0-5); Hemoglobin 7.5 g/dL (13.0-16.5); Lymphocyte # 0.28 X10^3/ul (0.83-4.51); Lymphocyte % 6.9 % (19-41); Mean Corp Hgb Conc 31.3 g/dL (32-36); Mean Corpuscular Hgb 26.1 pg (27.0-32.0); Mean Corpuscular Volume 83.6 fL (80-94); Mean Platelet Vol. 9.6 fl (6.2-12.0); Monocyte# 0.35 X10^3/uL; Monocyte% 8.6 % (0-10); NRBC Flagged by Analyzer 0 % (0-5); Neutrophil # 3.38 X10^3/uL (2.7-7.7); Neutrophil % 82.8 % (47-70); POSITIVE DIFFERENTIAL YES; Platelet Count 103 K/mm3 (150-450); RBC Distribution Width CV 17.1 % (11.6-14.6); RBC Distribution Width SD 51.8 fl (35.1-43.9); Red Blood Count 2.87 M/mm3 (4.6-6.2); White Blood Count 4.1 K/mm3 (4.4-11.0)
[2022-10-07 12:56] LABS: Differential Indicated SCAN CRITERIA MET
[2022-10-07 13:05] LABS: ALB/GLOB Ratio 0.5 RATIO (0.9-2.4); AST(SGOT) 23 U/L (15-37); Alanine Aminotransfer ALT/SGPT 15 U/L (16-61); Alkaline Phosphatase 114 U/L (45-117); Anion Gap 7 (5-15); BUN 10 mg/dL (7-18); BUN/Creat Ratio 11.3 RATIO (10-20); Calcium,Total 8.1 mg/dL (8.5-10.1); Chloride 100 mmol/L (98-107); Creatinine, Serum 0.88 mg/dL (0.70-1.30); EST Glomerular Filtration Rate 90 mL/min (>60); Est Glom Filt Rate - Afr Amer 109 mL/min (>60); Globulin 4.4 g/dL (2.2-4.2); Glucose 114 mg/dL (74-106); Potassium 3.4 mmol/L (3.5-5.1); Protein, Total 6.4 g/dL (6.4-8.2); Sodium Level 135 mmol/L (136-145)
[2022-10-07 13:18] VITALS: BP 102/67; PULSE 91; RESP 13; O2SAT 97
[2022-10-07 13:48] LABS: Anisocytosis 2+
[2022-10-07 15:00] VITALS: BP 104/66; PULSE 94; RESP 16; O2SAT 98
[2022-10-07 15:10] VITALS: BP 101/67; PULSE 93; RESP 16; TEMP 36.8; O2SAT 99
[2022-10-11 10:06] LABS: Pathologist Review Reviewed
== END 2022-10-07 15:31 | disposition home or self-care (01) ==
PROVIDERS: Emergency Provider Emergency Medicine; Visit Provider Emergency Medicine
DX: R11.2 Nausea with vomiting, unspecified (principal); E11.9 Type 2 diabetes mellitus without complications; E78.5 Hyperlipidemia, unspecified; I10 Essential (primary) hypertension; D64.9 Anemia, unspecified; Z79.82 Long term (current) use of aspirin; Z79.84 Long term (current) use of oral hypoglycemic drugs; Z79.899 Other long term (current) drug therapy; Z87.891 Personal history of nicotine dependence
CPT/HCPCS: 80053; 85025; 96360; 99285; J7030; A4216

== ENCOUNTER 2022-11-01 20:06 | Emergency (ER) | payer MEDICARE, MEDICAID, SELFPAY ==
[2022-11-01 20:07] VITALS: BP 138/81; PULSE 110; RESP 18; TEMP 36.4; O2SAT 99; BMI 20.7
--- NOTE | 2022-11-01 20:08 | ED.RN ---
FAMILY CALLED IN PATIENT IS ON HOSPICE HOSPICE DOCTOR SERVIC[facility]OW ADMINISTRATOR DEVELOPER [phone] SCOTT
[2022-11-01 20:20] LABS: Absolute Lymphocyte Count 0.65 X10^3/uL (0.83-4.51); Absolute Neutrophil Count 3.8 X10^3/uL (2.0-7.7); Basophil# 0.01 X10^3/uL; Basophil% 0.2 % (0-1); Eosinophil# 0.01 X10^3/uL; Eosinophils% 0.2 % (0-5); Hemoglobin 10.1 g/dL (13.0-16.5); Lymphocyte # 0.65 X10^3/ul (0.83-4.51); Lymphocyte % 13.3 % (19-41); Mean Corp Hgb Conc 30.6 g/dL (32-36); Mean Corpuscular Hgb 25.8 pg (27.0-32.0); Mean Corpuscular Volume 84.4 fL (80-94); Mean Platelet Vol. 9.6 fl (6.2-12.0); Monocyte# 0.37 X10^3/uL; Monocyte% 7.6 % (0-10); NRBC Flagged by Analyzer 0 % (0-5); Neutrophil # 3.82 X10^3/uL (2.7-7.7); Neutrophil % 78.3 % (47-70); Platelet Count 137 K/mm3 (150-450); RBC Distribution Width CV 17.2 % (11.6-14.6); Red Blood Count 3.91 M/mm3 (4.6-6.2); White Blood Count 4.9 K/mm3 (4.4-11.0)
[2022-11-01 20:48] LABS: Anion Gap 9 (5-15); BUN 9 mg/dL (7-18); BUN/Creat Ratio 10.2 RATIO (10-20); Calcium,Total 8.6 mg/dL (8.5-10.1); Chloride 101 mmol/L (98-107); Creatinine, Serum 0.88 mg/dL (0.70-1.30); EST Glomerular Filtration Rate 90 mL/min (>60); Est Glom Filt Rate - Afr Amer 109 mL/min (>60); Estimated Creatinine Clearance 71.63 ml/min; Glucose 150 mg/dL (74-106); Potassium 3.4 mmol/L (3.5-5.1); Sodium Level 135 mmol/L (136-145)
--- NOTE | 2022-11-01 21:18 | EX.ED.DYSGE1 ---
HPI History of Present Illness Chief Complaint: General Illness Narrative Narrative: 72-year-old male with history of metastatic prostate cancer presenting with nausea and vomiting as well as diarrhea. He states is able to hold down some food and fluids but if he drinks too much he will vomit. He states he has chronic back pain which is unchanged. He states he has some diarrhea but he is not having abdominal pain. He is not sure the cancer specialist that he sees. He states he is not on chemotherapy. He has not had a fever. He states I think I have a stomach flu. PFSH FOR[facility] Medical History Anemia, unspecified BPH (benign prostatic hyperplasia) Displaced fracture of lesser trochanter of right femur, subsequent encounter for closed fracture with routine healing Essential (primary) hypertension Gastro-esophageal reflux disease without esophagitis Generalized weakness Hyperlipidemia, unspecified Malignant neoplasm of prostate Other pancytopenia Pathological fracture, other site, subsequent encounter for fracture with routine healing Pathological fracture, right femur, subsequent encounter for fracture with routine healing Secondary malignant neoplasm of bone Type 2 diabetes mellitus without complications Unspecified fracture of left ilium, subsequent encounter for fracture with routine healing Home Medications aspirin 81 mg tablet 81 mg PO DAILY 07/16/22 [History Last Taken Unknown] cholecalciferol (vitamin D3) 25 mcg (1,000 unit) tablet 25 mcg PO DAILY 07/16/22 [History Last Taken Unknown] enzalutamide 40 mg capsule 160 mg PO DAILY 07/16/22 [History Last Taken Unknown] ezetimibe 10 mg tablet 10 mg PO DAILY 07/16/22 [History Last Taken Unknown] metformin 1,000 mg tablet 1,000 mg PO BID 07/16/22 [History Last Taken Unknown] metoprolol succinate 25 mg capsule sprinkle, ext. release 24 hr 25 mg PO DAILY 07/16/22 [History Last Taken Unknown] multivitamin 1 tab PO DAILY 07/16/22 [History Last Taken Unknown] oxycodone 15 mg tablet 15 mg PO BID PRN Pain 07/16/22 [History Last Taken Unknown] oxycodone 5 mg tablet 2.5 mg PO Q4H PRN Pain 07/16/22 [History Last Taken Unknown] ropinirole 0.25 mg tablet 0.25 mg PO QHS 07/16/22 [History Last Taken Unknown] rosuvastatin 40 mg tablet 40 mg PO DAILY 07/16/22 [History Last Taken Unknown] tamsulosin 0.4 mg capsule 0.4 mg PO DAILY 07/16/22 [History Last Taken Unknown] amoxicillin 500 mg capsule 500 mg PO Q12 10 days #20 caps 07/21/22 [Rx Last Taken Unknown] ascorbic acid (vitamin C) 500 mg capsule,extended release (Vitamin C) 500 mg PO Q12H #1 cap 07/21/22 [Rx Last Taken Unknown] bismuth subsalicylate 262 mg/15 mL oral suspension (Pepto-Bismol) 524 mg (30 mL) PO .QID 10 days #1,200 mL 07/21/22 [Rx Last Taken Unknown] doxycycline monohydrate 100 mg capsule 100 mg PO BID 10 days #20 caps 07/21/22 [Rx Last Taken Unknown] ferrous sulfate 325 mg (65 mg iron) tablet 325 mg PO BID #1 TAB 07/21/22 [Rx Last Taken Unknown] metronidazole 500 mg tablet 500 mg PO BID 10 days #20 tabs 07/21/22 [Rx Last Taken Unknown] pantoprazole 40 mg granules delayed-release for susp in packet 40 mg PO BIDCM #1 ea 07/21/22 [Rx Last Taken Unknown] ondansetron 4 mg disintegrating tablet 4 mg PO Q6H PRN nausea and vomiting #10 tabs 10/07/22 [Rx Last Taken Unknown] Allergy/AdvReac Type Severity Reaction Status Date / Time No Known Allergies Allergy Verified 10/07/22 11:51 Social History household members: none Smoking Status: Former smoker substance use type: does not use EXAM Physical Exam Const Vital Signs: 11/01/22 20:07 11/01/22 21:37 11/01/22 21:42 Temperature 97.6 F L Temperature Source Temporal Pulse Rate 110 H 87 Respiratory Rate 18 18 Respiratory Pattern Normal Blood Pressure 138/81 H 120/67 Blood Pressure Mean 100 84 Pulse Ox 99 96 Oxygen Delivery Method Room Air Room Air Positive cachectic General Appearance ED: cachectic and NAD; Negative for pallor Nutritional Appearance: cachectic HEENT Reports moist mucous membranes Eyes PERRL and EOMs intact bilaterally Neck no lymphadenopathy Chest Wall inspection of chest normal and palpation of chest normal Resp normal respiratory effort and clear to auscultation bilaterally GI normal to inspection, nondistended, normoactive bowel sounds Neuro oriented x3 and CN's II-XII intact bilaterally Sensorium / Orientation: alert Psych mental status grossly normal Skin no rashes or lesions noted and no wounds General Skin Exam: Negative for jaundice or pallor MDM MDM MDM Narrative Medical decision making narrative: Patient medicated with Zofran complaint for nausea. He is having diarrhea but is not having abdominal pain. His abdominal exam is benign. Blood work is obtained and he has a normal white blood cell count of 4.9. Hemoglobin stable at 10.1. This is actually higher than previous. Platelets are low at 137 however this is also improving. Renal function is normal. Potassium slightly low at 3.4.. Urinalysis negative for infection. He is feeling better after Zofran. I did test him for COVID influenza and these are negative. When I went in to discharge him his family is in the room and stated that they brought him in because he has a history of atrial fibrillation. He does admit to the sensation of some palpitations but also secondary to nausea/vomiting. He not appear to be in A. fib in the emergency room and is not complaining of chest pain or shortness of breath. His lungs are clear to auscultation bilaterally. He is not complaining of fevers. His heart rate is currently 87. Patient is a hospice patient and as previously stated he came in complaining of stomach flu. Since his work-up was ultimately negative I feel he stable to be discharged back home. I tried to call Dr. Shields was on the on-call hospice doctor but the phone number is incorrect. Family states he does have Zofran at home. The at this point he stable for discharge. Impression: 1. Palpitations 2. Nausea/vomiting 3. History of stage IV prostate cancer Lab Data Attestation: I reviewed the patient's lab results. Labs: Laboratory Results - last 24 hr 11/01/22 11/01/22 11/01/22 20:00 20:00 21:40 WBC 4.9 RBC 3.91 L Hgb 10.1 L Hct 33.0 L MCV 84.4 MCH 25.8 L MCHC 30.6 L RDW Std Deviation 53.0 H RDW Coeff of Chidi 17.2 H Plt Count 137 L MPV 9.6 Immature Gran % (Auto) 0.400 Neut % (Auto) 78.3 H Lymph % (Auto) 13.3 L [place] % (Auto) 7.6 Eos % (Auto) 0.2 Baso % (Auto) 0.2 Absolute Neuts (auto) 3.8 Absolute Lymphs (auto) 0.65 L Nucleated RBC % 0 Sodium 135 L Potassium 3.4 L Chloride 101 Carbon Dioxide 25.0 Anion Gap 9 BUN 9 Creatinine 0.88 Estim Creat Clear Calc 71.63 Est GFR (MDRD) Af Amer 109 Est GFR (MDRD) Non-Af 90 BUN/Creatinine Ratio 10.2 Glucose 150 H Calcium 8.6 Urine Color Yellow Urine Clarity Clear Urine pH 6.5 Ur Specific [place] 1.010 Urine Protein 30 H Urine Glucose (UA) Normal Urine Ketones Negative Urine Occult Blood 25 H Urine Nitrite Negative Urine Bilirubin Negative Urine Urobilinogen Normal Ur Leukocyte Esterase 25 H Urine RBC 0 SEEN Urine WBC 0-5 SEEN Ur Squamous Epith Cells 0 SEEN Urine Bacteria 0 SEEN Urine Mucus 0 SEEN Discharge Plan Triage Chief Complaint: General Illness ED Provider: Andre Dumont Dx/Rx/DC Orders Instructions: ED Palpitations, ED Vomiting (Adult) Prescriptions: No Action multivitamin Tablet 1 tab PO DAILY oxycodone 15 mg Tablet 15 mg PO BID PRN (Reason: Pain) tamsulosin 0.4 mg Capsule 0.4 mg PO DAILY ropinirole 0.25 mg Tablet 0.25 mg PO QHS Rx Instructions: administer 1-3 hours before bedtime metformin 1,000 mg Tablet 1,000 mg PO BID aspirin 81 mg Tablet 81 mg PO DAILY Hold Instructions: Resume on 07/27/22. oxycodone 5 mg Tablet 2.5 mg PO Q4H PRN (Reason: Pain) ezetimibe 10 mg Tablet 10 mg PO DAILY rosuvastatin 40 mg Tablet 40 mg PO DAILY cholecalciferol (vitamin D3) 25 mcg (1,000 unit) Tablet 25 mcg PO DAILY enzalutamide 40 mg Capsule 160 mg PO DAILY metoprolol succinate 25 mg Capsule,Sprinkle,Er 24hr 25 mg PO DAILY amoxicillin 500 mg Capsule 500 mg PO Q12 10 Days Qty: 20 0RF metronidazole 500 mg Tablet 500 mg PO BID 10 Days Qty: 20 0RF doxycycline monohydrate 100 mg Capsule 100 mg PO BID 10 Days Qty: 20 0RF ferrous sulfate 325 mg (65 mg iron) tablet 325 mg PO BID Qty: 1 0RF ascorbic acid (vitamin C) [Vitamin C] 500 mg capsule, extended release 500 mg PO Q12H Qty: 1 0RF bismuth subsalicylate [Pepto-Bismol] 262 mg/15 mL suspension 524 mg PO .QID 10 Days Qty: 1200 0RF pantoprazole [address] For Susp In Packet 40 mg PO BIDCM Qty: 1 0RF ondansetron 4 mg tablet,disintegrating 4 mg PO Q6H PRN (Reason: nausea and vomiting) Qty: 10 0RF Primary Care Provider: Care Physician,No Primary Referrals: Care Physician,No Primary [Primary Care Provider] - Disposition Disposition: Home, Self Care
[2022-11-01] MEDS: Ondansetron 4 MG/2 ML Vial IV (21:34)
[2022-11-01 21:42] VITALS: BP 120/67; PULSE 87; RESP 18; O2SAT 96
[2022-11-01 21:48] LABS: Bacteria 0 SEEN /hpf (None Seen); Mucous, Urine 0 SEEN /hpf (<or=2+); Red Blood Cells-Urine 0 SEEN /hpf (0-5); Squamous Epithelial Cells - UA 0 SEEN /hpf (0-5)
[2022-11-01 22:03] LABS: Color, Urine Yellow (Yellow); Glucose, Dipstick Normal (Normal); Ketone-Dipstick Negative (Negative); Leukocyte Esterase-Dipstick 25 /ul (Negative); Nitrite-Dipstick Negative (Negative); Occult Blood-Urine 25 /ul (Negative); Protein-Dipstick 30 mg/dl (Negative); Urine Bilirubin Dipstick Negative (Negative); Urine Clarity Clear (Clear); Urine Urobilinogen Normal (Normal); Urine pH 6.5 (5.0 - 8.0)
[2022-11-01 22:14] LABS: White Blood Cells 0-5 SEEN /hpf (0-5)
[2022-11-01 23:20] VITALS: BP 121/89; PULSE 88; RESP 18; O2SAT 96
== END 2022-11-01 23:22 | disposition home or self-care (01) ==
PROVIDERS: Emergency Provider Student in an Organized Health Care Education/Training Program; Visit Provider Student in an Organized Health Care Education/Training Program
DX: R11.2 Nausea with vomiting, unspecified (principal); C79.51 Secondary malignant neoplasm of bone; C61 Malignant neoplasm of prostate; E11.9 Type 2 diabetes mellitus without complications; Z87.891 Personal history of nicotine dependence; G89.29 Other chronic pain; I10 Essential (primary) hypertension; E78.5 Hyperlipidemia, unspecified; R00.2 Palpitations; R19.7 Diarrhea, unspecified; Z79.899 Other long term (current) drug therapy; Z79.82 Long term (current) use of aspirin; Z79.84 Long term (current) use of oral hypoglycemic drugs; N40.0 Benign prostatic hyperplasia without lower urinary tract symptoms
CPT/HCPCS: 80048; 81001; 85025; 87428; 96374; 99285; A4216; J2405